=== PATIENT | female | born 1955 | race Caucasian/White ===

== ENCOUNTER 2017-05-01 14:53 | Inpatient (IN) | payer MEDICARE, BC ==
[~2017-05-01] VITALS: Ht 162.6 cm; Wt 68.6 kg
--- NOTE | ~2017-05-01 | CN ---
PATIENT NAME:MARCELO PALACIOS MEDICAL RECORD: [id number] : 51 LOCATION:D.MS [place] ADMIT DATE: 05/01/17 ACCOUNT: [id number] CONSULTING PHYSICIAN: CHARLIE MARCELO MD REFERRING PHYSICIAN: GEOFFREY CORTEZ MD DATE OF CONSULTATION: 05/02/2017 REQUESTING PHYSICIAN: Geoffrey Cortez MD. REASON FOR CONSULTATION: Acute exacerbation of COPD. HISTORY OF PRESENT ILLNESS: Ms. Palacios is a 61-year-old female who has a history of COPD and asthma and current everyday smoker. According to the patient, she is sick for the last few weeks, which is getting worse. She is coughing with white yellow colored sputum production. She is also having a nasal discharge. She is wheezing. She is coughing. She has shortness of breath with mild exertion. Her level of activities are fairly limited. REVIEW OF SYSTEMS: As in history of present illness. PAST MEDICAL HISTORY: 1. COPD. 2. Asthma. 3. Emphysema. 4. Hypothyroidism. 5. Depression. PAST SURGICAL HISTORY: 1. Appendectomy. 2. Tonsillectomy and adenoidectomy. 3. Hysterectomy. ALLERGIES: SHE IS ALLERGIC TO IODINE AND AVELOX. PRESENT MEDICATIONS: On [employer] was reviewed. PERSONAL AND SOCIAL HISTORY: The patient is still a current everyday smoker. She was smoking more than a pack a day, now she is down to half pack a day. She is a nondrinker. FAMILY HISTORY: Noncontributory. PHYSICAL EXAMINATION: GENERAL: Now, the patient is lying comfortably in bed. She is not in acute distress. VITAL SIGNS: The blood pressure is 111/69, pulse is 115, respirations 18, temperature 99 and SPO2 is 88% to 93% on 2 liters nasal cannula. HEENT: Conjunctivae pink, sclerae nonicteric. NECK: Supple. No JVD. CHEST: The chest excursion is minimal on both sides. There is wheeze on forceful expiration. HEART: Rhythm regular, normal sound, no murmur. ABDOMEN: Soft, bowel sounds present. No hepatosplenomegaly. RECTAL: Examination was deferred. EXTREMITIES: No cyanosis, no clubbing and no pedal edema. CONSULT REPORT [id number] MARCELO PALACIOS SKIN: The skin is warm, normal turgor. CENTRAL NERVOUS SYSTEM: The patient is awake and alert. There are no obvious cranial nerve abnormalities. The gait was not tested. IMAGING: Chest radiograph, there is hyperinflation. There are increased interstitial markings. LABORATORY DATA: CBC: The WBC is 6.3, hemoglobin 17.7, hematocrit 54.3 and the platelet count is 215. Chemistry: Sodium 124, potassium 3.3, BUN is 17 and creatinine 0.8. ABG: The pH was 7.35, pCO2 is 57.6, the pO2 was 56 and bicarbonate is 32.5. IMPRESSION: 1. Ppxuq-dj-agkldcr hypoxic respiratory failure. 2. Chronic compensated respiratory failure. 3. Acute exacerbation of chronic obstructive pulmonary disease. 4. Acute bronchitis. 5. 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 6. Tobacco dependence syndrome. 7. Chest pain. 8. Acute sinusitis. 9. Allergic rhinitis. 10. Hyponatremia. 11. Hypokalemia. RECOMMENDATIONS: 1. I will check proBNP, follow up labs and chest radiograph, methylprednisolone IV, add Brovana and budesonide nebulizer. Continue albuterol/ipratropium nebulizer. 2. Nicotine patch. 3. Singulair 10 mg a day. The patient is to undergo cardiac catheterization in the a.m. Dr. Cortez, thank you for involving me in the care of Ms. Palacios. TRANSINT:[id number] Voice Confirmation ID: [id number] DOCUMENT ID: [id number] CHARLIE MARCELO MD CC: GEOFFREY CORTEZ MD [id number] DICTATION DATE: 05/02/171740 REHABILITATION SERVICES AIDE: 05/02/172134 ADM IN [place] [address] [place] [address]
--- NOTE | ~2017-05-01 | EC ---
PATIENT:MARCELO PATTERSON DATE OF SERVICE: 05/01/17 SEX: F MEDICAL RECORD: [id number] DATE OF : 51 LOCATION:D.MS [place] AGE OF PATIENT: 61 ADMISSION DATE: 05/01/17 REFERRING PHYSICIAN: INTERPRETING PHYSICIAN: JAREN MACKAY MD ECHOCARDIOGRAM REPORT ECHO CHARGES 4 ECHO COMPLETE CLINICAL DIAGNOSIS: DYSPNEA, CHEST PAIN ECHOCARDIOGRAPHIC MEASUREMENTS (adult normal given) AC root (d.<3.7cm) 2.9 cm LV Septum d (<1.2 cm> 1.5 cm Valve Excursion 1.5 cm LV Septum (systole) 1.8 cm Left Atria (s.<4.0cm> 3.6 cm LVPW d(<1.2cm) 1.5 cm RV (d.<2.3cm) 2.9 cm LVPW (sytole) 1.8 cm LV diastole(<5.6CM) 5.8 cm MV E-F(>70mm/sec) cm LV systole 4.3 cm LVOT Diameter 1.7 cm MV exc.(>10mm) 1.6 cm Est.ejection fraction (50-75%) % Pericardial Effusion N DOPPLER: LVIT cm/sec A 67.0 cm/sec E 99.0 cm/sec LA cm/sec RVSP 28 mmHg LVOT cm/sec AOP1/2T m/s Asc. Ao 204 cm/sec RVOT 88 cm/sec RA cm/sec PA 153 cm/sec AV Gradient Peak 16.70mmHg AV Mean 9.38 mmHg AV Area 2.0 cm MV Gradient Peak 3.75 mmHg MV Mean 1.26 mmHg MV Area cm COMMENTS: Ornamental Bronze Worker: Lottie DUMONT Medical Assistant Dermatology: 4 Dr. Mackay TAPE# PACS DATE OF SERVICE: 05/02/2017 PROCEDURE: Transthoracic echocardiogram. FINDINGS: 1. The left ventricle shows mild concentric left ventricular hypertrophy. There was asynchronous wall motion seen which limits the ability to give an accurate ejection fraction, but overall it appears that the patient's ejection fraction is in the low normal range of 45% to 50%. There is no demonstrated wall motion abnormalities. ECHOCARDIOGRAM REPORT [id number] MARCELO PATTERSON 2. The right ventricle is mildly dilated. 3. Left atrium is normal size, normal function. 4. The right atrium has normal size, normal function. 5. The aortic valve is normal. 6. The mitral valve is normal. 7. The tricuspid valve has traced tricuspid regurgitation with normal right ventricular systolic pressures. 8. Pulmonic valve is grossly normal. 9. The pericardium had no evidence of effusion. IMPRESSION: Normal function to low normal function and the patient with widely varying R-R intervals and with some asynchrony of the wall motion secondary to underlying bundle branch block. TRANSINT:[id number] Voice Confirmation ID: [id number] DOCUMENT ID: [id number] JAREN MACKAY MD CC: [id number] DICTATION DATE: 05/02/17 1658 OPTOELECTRONIC TECHNICIAN: 05/02/172044 ADM IN [facility] [address] [id number]
--- NOTE | ~2017-05-01 | HEMODYNAMI ---
PATIENT:MARCELO PATTERSON MEDICAL RECORD: [id number] : 51 LOCATION:D.MS [place] ADMISSION DATE: 05/01/17 Generatedon:05/03/20178:37 Patient name: MARCELO PATTERSON Patient #: [id number] SSN: : 1955 Date of study: 05/03/2017 Page: Of Hemodynamic Procedure Report Patient Data Patient Demographics Procedure consent was obtained First Name: MARCELO Gender: Female Last Name: LEONARDO : 1955 [facility] Initial: S Age: 61 year(s) Patient #: [id number] Race: Unknown Additional ID: [id number] Contact details Address: [address] [place] [address] State: [place] City: [place] Zip code: [address] Past Medical History Allergies Allergen Reaction Date Comments Reported Iodine 05/03/2017 Other allergy 05/03/2017 Avelox, Benadryl, Advil Admission Admission Data Admission Date: 05/01/2017 Admission Time: 17:27 Room #: D.2230 Lab Results Lab Result Date: 05/03/2017 Lab Result Time: 0:00 Biochemistry Name Units Result Min Max Creatinine mg/dl 0.8 --(-*--)-- 0.6 1.3 CBC Name Units Result Min Max Hemoglobin g/dl 18 --(----)*- 13.5 17.5 Procedure Procedure Types Cath Procedure Diagnostic Procedure [facility] w/Coronaries Miscellaneous Procedures Moderate Sedation up to 30 minutes Procedure Description Procedure Date Procedure Date: 05/03/2017 Procedure Start Time: 8:12 Procedure End Time: 8:33 Procedure Staff Name Function Severo Santana RT Scrub Sal Massey MD Performing Physician Lucien Bruce RN Nurse Mayte Stephens RT Scrub Michelle Spence RT Monitor Procedure Data Cath Procedure Fluoroscopy Diagnostic fluoroscopy Total fluoroscopy Time: 3.9 time: 3.9 min min Diagnostic fluoroscopy Total fluoroscopy dose: 169 dose: 169 mGy mGy Contrast Material Contrast Material Type Amount (ml) Isovue 300 47 Entry Location Entry Primary Successful Side Size Upsize Upsize Entry Closure Succes sful Closure Location (Fr) 1 (Fr) 2 (Fr) Remarks Device Remarks Femoral Right 5 Fr Exoseal artery Estimated blood loss: 5 ml Diagnostic catheters Device Type Used For End Catheter Placement Cordis 5Fr JL 4.0 Left Coronary Catheter (MP) Angiography Diagnostic Infinity 5Fr Left Coronary JL 3.5 catheter Angiography Cordis 5Fr 3DRC Catheter Right Coronary (MP) Angiography Cordis 5Fr Pigtail LV Angiography Catheter (MP) Procedure Complications No complications Procedure Medications Medication Administration Route Dosage Oxygen NC 3 l/min 0.9% NaCl I.V. 100 ml/hr Heparin Flush Bag added to field 2 bags (1000units/500ml NS) Versed I.V. 1 mg Fentanyl I.V. 25 mcg Hemodynamics Rest HGB: 18 (g/dl) Heart Rate: 111 (bpm) Pressure Samples Time Site Value (mmHg) Purpose Heart Use Rate(bpm) 8:28 LV 105/9,17 EDP 115 Gradients Valve Time Site Site Mean SEP/DFP Peak To Heart Use 1 2 (mmHg) (sec/min) Peak Rate (mmHg) (bpm) Aortic 8:29 LV AO 112 Snapshots Pre Cath Intra NCS Post Cath Vital Signs Time Heart Resp SPO2 etCO2 [id number] NIBP (mmHg) Rhythm Pain Sedation Rate (ipm) (%) (mmHg) (mmHg) Status Level (bpm) 8:06:43 112 25 94 0 0 126/79(110) NSR 0 (11) 10(A) , No pain 8:10:51 115 26 92 0 0 123/84(96) NSR 0 (11) 10(A) , No pain 8:15:45 122 15 93 0 0 125/88(98) NSR 0 (11) 10(A) , No pain 8:19:55 111 21 93 0 0 117/76(92) NSR 0 (11) 10(A) , No pain 8:24:01 109 22 92 0 0 117/71(91) NSR 0 (11) 10(A) , No pain 8:28:07 112 15 91 0 0 108/69(93) NSR 0 (11) 10(A) , No pain 8:32:04 119 19 91 0 0 119/80(94) NSR 0 (11) 10(A) , No pain Medications Time Medication Route Dose Verified Delivered Reason Notes Effect iveness by by 8:03:01 Oxygen NC 3 Lucien Lucien Per l/min Teo Bruce physician RN RN 8:03:27 0.9% NaCl I.V. 100 Lucien Lucien Per ml/hr Teo Bruce physician RN RN 8:05:31 Heparin Flush added 2 Lucien Lucien used for Bag to bags Teo Bruce procedure (1000units/500ml field RN RN NS) 8:15:15 Versed I.V. 1 mg Lucien Lucien for Lorigan Lorigan sedation RN RN 8:16:36 Fentanyl I.V. 25 Lucien Lucien for mcg Lorigan Lorigan sedation RN director diabetes Log Time Note 7:45:28 Lucien Bruce RN sent for patient. Start room use. 7:45:29 Time tracking: Regular hours 7:45:32 Plan of Care:Hemodynamics will remain stable., Cardiac rhythm will remain stable., Comfort level will be maintained., Respiratory function will remain adequate., Patient/ family verbilizes understanding of procedure., Procedure tolerated without complication., Recovers from procedure without complications.. 7:50:46 Lab Result : Hemoglobin 18 g/dl 7:50:46 Lab Result : Creatinine 0.8 mg/dl 7:54:42 Patient received from Med/Surg to CCL 1 Alert and oriented. Tansferred to table in Supine position. 7:54:43 Warm blankets applied, and deb hugger turned on for patient comfort. 7:54:44 Correct patient and procedure confirmed by team. 7:54:45 Signed procedure consent form obtained from patient. 7:54:46 ECG and BP/O2 sat monitors applied to patient. 7:55:02 Full Disclosure recording started 8:01:12 Vital chart was started 8:03:01 Oxygen 3 l/min NC was administered by Lucien Bruce RN; Per physician; 8:03:27 0.9% NaCl 100 ml/hr I.V. was administered by Lucien Bruce RN; Per physician; 8:05:31 Heparin Flush Bag (1000units/500ml NS) 2 bags added to field was administered by Lucien Bruce RN; used for procedure; 8:05:58 Pre-op teaching completed and patient verbalized understanding. 8:05:58 Pre-procedure instructions explained to patient. 8:06:36 Rhythm: sinus tachycardia 8:07:41 H&P Date Dictated: 05/02/2017 Within 30 days and on chart.. 8:07:43 Family in patients room. 8:07:46 Patient NPO since Midnight. 8:07:53 Patient allergic to Iodine 8:08:12 Patient allergic to Other allergyAvelox, Benadryl, Advil 8:08:16 Is the patient allergic to Iodine/contrast media? Yes. 8:08:18 Was the patient premedicated? Yes 8:08:25 Is patient on blood thinner?Yes 8:08:27 ACC The patient was administered the following blood thiners within the last 24 hours: ACCPlavix 8:08:29 Patient diabetic? No. 8:09:00 Previous problem with sedation/anesthesia? No ? 8:09:02 Snore? No 8:09:03 Sleep apnea? No 8:09:04 Deviated septum? No 8:09:05 Sticks out tongue? Yes 8:09:05 Opens mouth fully? Yes 8:09:08 Airway obstruction? Yes COPD 8:09:11 Dentures? Yes In 8:09:14 Pre procedure: right dorsailis pedis pulse 1+ Palpable, but thready & weak; easily obliterated 8:09:16 Patient pain scale 0/10 ?. 8:09:24 IV patent on arrival in left forearm with 0.9% NaCl at KVO. 8:09:27 Lab results completed and on chart. 8:09:29 Right groin area was prepped with chlora-prep and draped in sterile fashion 8:09:31 Sharps counted by scrub and verified by R.N. 8:09:31 Alarms reviewed by R. N. 8:09:35 Use device set Femoral Dx 8:09:36 Bag Decanter opened to sterile field. 8:09:36 Acist Syringe opened to sterile field. 8:09:37 Medline Cath Pack opened to sterile field. 8:09:38 St Pj 260cm J .035 wire opened to sterile field. 8:09:39 Acist Hand Control opened to sterile field. 8:09:40 Diagnostic Infinity 5Fr Multipack catheter opened to sterile field. 8:09:40 Acist Manifold opened to sterile field. 8:09:41 Tegaderm 4 x 4 opened to sterile field. 8:09:52 Final Timeout: patient, procedure, and site verified with staff and physician. All members of the team are in agreement. 8:09:53 Right groin site verified by team. 8:09:56 Physical assessment completed. ASA score P 2 - A patient with mild systemic disease as per Sal Massey MD. 8:09:59 Sedation plan: IV Moderate Sedation Versed, Fentanyl 8:11:01 Zero performed for pressure channel P1 8:12:14 Procedure started. 8:12:51 Local anesthetic to right femoral artery with Lidocaine 2% by Sal Massey MD.INITIAL ACCESS ONLY 8:13:23 Baseline sample Acquired. 8:14:09 Merit Prelude Femoral Sheath (NO COST SUPPLY) opened to sterile field. 8:14:17 Cook 4Fr Micropuncture (E98613) opened to sterile field. 8:15:15 Versed 1 mg I.V. was administered by Lucien Bruce RN; for sedation; 8:15:16 A 5 Fr sheath was inserted into the Right Femoral artery 8:16:26 A Cordis 5Fr JL 4.0 Catheter (MP) was advanced over the wire and used for Left Coronary Angiography. 8:16:36 Fentanyl 25 mcg I.V. was administered by Lucien Bruce RN; for sedation; 8:20:03 Catheter removed. 8:20:19 A Diagnostic Infinity 5Fr JL 3.5 catheter was advanced over the wire and used for Left Coronary Angiography. 8:23:51 Catheter exchanged over wire. 8:25:11 A Cordis 5Fr 3DRC Catheter (MP) was advanced over the wire and used for Right Coronary Angiography. 8:25:55 Catheter exchanged over wire. 8:26:30 A Cordis 5Fr Pigtail Catheter (MP) was advanced over the wire and used for LV Angiography. 8:28:21 LV gram done using SOL 8:28:32 Injector settings: Ml/sec: 12, Volume: 8, 8:28:40 LV hemodynamics recorded. 8:29:14 Catheter removed. 8:29:23 Cordis 5Fr Exoseal opened to sterile field. 8:29:37 Sheath removed intact; hemostasis achieved with Exoseal to the Right Femoral artery. 8:29:40 Procedure ended.(Physican Out) 8:30:51 Fluoroscopy time 03.90 minutes. 8:30:54 Fluoroscopy dose: 169 mGy 8:30:54 Flurop Dose total: 169 8:30:58 Contrast amount:Isovue 300 47ml. 8:30:59 Sharps counted by scrub and verified by R.N. 8:31:03 Insertion/operative site no bleeding no hematoma. 8:31:05 Post-op/insertion site Right Femoral artery dressed using a 4 x 4 and Tegaderm. 8:31:08 Post right femoral artery:stable, clean and dry 8:31:10 Post Procedure Pulses reassessed and unchanged 8:31:15 Post-procedure physical assessment completed. ASA score P 2 - A patient with mild systemic disease as per Sal Massey MD. 8:31:17 Post procedure rhythm: unchanged. 8:31:20 Estimated blood loss: 5 ml 8:31:21 Patient needs reinforcement of post procedure teaching. 8:31:21 Post procedure instruction explained to patient.Patient verbalizes understanding. 8:31:31 Procedure type changed to Cath procedure, Diagnostic procedure, LHC, LHC w/Coronaries, Miscellaneous Procedures, Moderate Sedation up to 30 minutes 8:31:36 Procedure Complication : No complications 8:31:38 See physician's report for complete and final results. 8:32:07 Procedure and supply charges have been captured, reviewed, submitted and are correct. 8:33:16 Vital chart was stopped 8:33:20 Report given to PCU. 8:33:22 Patient transfered to PCU with Stretcher. 8:33:37 Full Disclosure recording stopped 8:33:37 Procedure ended. 8:33:41 End room use (Document Last) Device Usage Item Name Manufacture Quantity Catalog Hospital Part Current Minimal Lot# / Number Charge Number Stock Stock Serial# Code Acist Syringe Acist 1 56746 [id number] 438450 615769 20 [employer]sportgroup Systems Goodwall Bag Decanter Microtek 1 2001S 273587 57944 498671 5 Medical Inc. Medline Cath Cardinal 1 [id number] 901174 26993 670225 5 [address] Health [address] Pj 260[address] St Pj 1 159597 761526 433296 104779 30 J .035 wire Acist Hand Acist 1 07401 546752 063391 473201 5 Control Medical Systems Inc Acist Acist 1 90263 804113 242879 449015 5 Manifold Medical Systems Inc Diagnostic Cardinal 1 SQ9595 066481 18224 060157 30 Infinity 5Fr Health Multipack catheter Tegaderm 4 x 3M 1 1626W 300420 107932 072828 5 4 Merit Prelude Merit 1 824440 101484 5 Femoral Medical Sheath (NO COST SUPPLY) Cook 4Fr Cook Medical 1 [id number] 816702 971574 565043 5 Micropuncture (T74225) Cordis 5Fr JL Cardinal 1 979065 5 4.0 Catheter Health (MP) Diagnostic Cardinal 1 [id number] 148559 233439 032745 5 Infinity 5Fr Health JL 3.5 catheter Cordis 5Fr Cardinal 1 096847 5 3DRC Catheter Health (MP) Cordis 5Fr Cardinal 1 774459 5 Pigtail Health Catheter (MP) Cordis 5Fr Cardinal 1 EX500 920063 784363 510058 10 [employer] [facility] Subtextual Signature Audit [place] Stage Time Signature Unsigned Intra-Procedure 05/03/2017 Michelle 8:37:45 AM Counts RT(R) Signatures Monitor : Michelle Signature : Counts RT Date : Time : [id number] [place] [address]
[2017-05-01 16:17] LABS: BASOPHILS 0.2 % (0-2); EOSINOPHILS 1.8 % (0-7); HEMATOCRIT 53.1 % (36.0-48.0); HEMOGLOBIN 17.4 g/dL (12-16); LYMPHOCYTES 16.9 % (15-50); MCH 29.7 pg (26.0-34.0); MCHC 32.8 g/dL (31.0-37.0); MCV 90.8 fL (80.0-100.0); MEAN PLATELET VOLUME 9.8 fL (7.4-10.4); MONOCYTES 9.5 % (2-11); NEUTROPHILS 70.6 % (40-80); PLATELET COUNT 175 10x3/uL (130-400); RBC 5.85 10x6/uL (4.00-5.40); RDW 15.4 % (11.5-14.5); WBC 8.2 10x3/uL (4.8-10.8)
[2017-05-01 16:41] LABS: ALBUMIN 3.5 g/dL (3.4-5.0); ALKALINE PHOSPHATASE 71 U/L (46-116); ALT (SGPT) 14 U/L (10-68); BILIRUBIN - TOTAL 0.27 mg/dL (0.2-1.3); CALC OSMOLALITY 273 mosm/kg (275-300); CALCIUM 9.7 mg/dL (8.5-10.1); CARBON DIOXIDE 31.7 mmol/L (21.0-32.0); CHLORIDE - SERUM 98 mmol/L (98-107); CREATININE - SERUM 0.8 mg/dL (0.6-1.3); GLUCOSE 102 mg/dL (74-106); POTASSIUM - SERUM 3.6 mmol/L (3.5-5.1); PROTEIN - SERUM 7.7 g/dL (6.4-8.2); SODIUM 138 mmol/L (136-145); TROPONIN-I < 0.017 ng/mL (0.000-0.060); UREA NITROGEN 7 mg/dL (7-18); eGFR NON AFRICAN AMERICAN 77 mL/min (90-120)
[2017-05-01] MEDS ORDERED: SINGULAIR10 MG PO (18:37)
[2017-05-01] MEDS ORDERED: COMBIVENT RESPIM4 GM INH (18:37)
[2017-05-01] MEDS ORDERED: SPIRIVA18 MCG INH (18:37)
[2017-05-01] MEDS ORDERED: TRAZODONE HCL150 MG PO (18:37)
[2017-05-01] MEDS ORDERED: PREMARIN0.3 MG PO (18:37)
[2017-05-01] MEDS ORDERED: PROVENTIL HFA6.7 GM INH (18:38)
[2017-05-01] MEDS ORDERED: LEVOTHYROXINE125 MCG PO (18:38)
[2017-05-01] MEDS ORDERED: HYDROCODONE-APA1 TAB PO (18:39)
[2017-05-01] MEDS ORDERED: OXYCONTIN40 MG PO (18:39)
[2017-05-01] MEDS ORDERED: LOW DOSE ASPIRI81 M1 PO (18:40)
[2017-05-01 20:00] VITALS: BP 112/63
[2017-05-01 23:31] VITALS: BP 112/63; Ht 162.6 cm; Wt 68.6 kg
[2017-05-02] VITALS: BP 109/70
[2017-05-02 04:00] VITALS: BP 110/68
[2017-05-02 08:18] VITALS: BP 117/74
[2017-05-02 09:58] LABS: BASOPHILS 0.2 % (0-2); EOSINOPHILS 0 % (0-7); HEMATOCRIT 54.3 % (36.0-48.0); HEMOGLOBIN 17.7 g/dL (12-16); IMMATURE GRANULOCYTES 1.1 % (0-5); MCH 29.5 pg (26.0-34.0); MCHC 32.6 g/dL (31.0-37.0); MCV 90.7 fL (80.0-100.0); MEAN PLATELET VOLUME 10.5 fL (7.4-10.4); MONOCYTES 1.4 % (2-11); NEUTROPHILS 90.3 % (40-80); RBC 5.99 10x6/uL (4.00-5.40); RDW 15.5 % (11.5-14.5); WBC 6.3 10x3/uL (4.8-10.8)
[2017-05-02 09:59] LABS: PLATELET COUNT 215 10x3/uL (130-400)
[2017-05-02 10:15] LABS: ALBUMIN 3.5 g/dL (3.4-5.0); ALKALINE PHOSPHATASE 69 U/L (46-116); ALT (SGPT) 12 U/L (10-68); CALCIUM 10.1 mg/dL (8.5-10.1); CARBON DIOXIDE 31.2 mmol/L (21.0-32.0); CHLORIDE - SERUM 99 mmol/L (98-107); CREATININE - SERUM 0.7 mg/dL (0.6-1.3); PROTEIN - SERUM 7.5 g/dL (6.4-8.2); SODIUM 139 mmol/L (136-145); eGFR NON AFRICAN AMERICAN 90 mL/min (90-120)
[2017-05-02 10:17] LABS: CALC OSMOLALITY 284 mosm/kg (275-300); GLUCOSE 230 mg/dL (74-106); POTASSIUM - SERUM 4.5 mmol/L (3.5-5.1); UREA NITROGEN 12 mg/dL (7-18)
[2017-05-02] MEDS ORDERED: THEOPHYLLINE600 MG PO (10:19)
[2017-05-02 12:44] VITALS: BP 111/69
[2017-05-02 13:00] LABS: CALCIUM 9.9 mg/dL (8.5-10.1); CARBON DIOXIDE 30.7 mmol/L (21.0-32.0); CHLORIDE - SERUM 94 mmol/L (98-107); CREATININE - SERUM 0.8 mg/dL (0.6-1.3); SODIUM 124 mmol/L (136-145); eGFR NON AFRICAN AMERICAN 77 mL/min (90-120)
[2017-05-02 13:02] LABS: CALC OSMOLALITY 253 mosm/kg (275-300); GLUCOSE 137 mg/dL (74-106); POTASSIUM - SERUM 3.3 mmol/L (3.5-5.1); UREA NITROGEN 17 mg/dL (7-18)
[2017-05-02 16:28] VITALS: BP 122/72
[2017-05-02] MEDS ORDERED: PHENERGAN25 M1 PO (17:52)
[2017-05-02] MEDS ORDERED: ACETAMINOPHEN500 M1 PO (17:57)
[2017-05-02 20:00] VITALS: BP 119/64
[2017-05-03] VITALS: BP 106/68
[2017-05-03 04:00] VITALS: BP 114/70
[2017-05-03 05:47] LABS: BASOPHILS 0 % (0-2); EOSINOPHILS 0 % (0-7); HEMATOCRIT 54.9 % (36.0-48.0); IMMATURE GRANULOCYTES 0.7 % (0-5); LYMPHOCYTES 6.1 % (15-50); MCH 29.7 pg (26.0-34.0); MCHC 32.8 g/dL (31.0-37.0); MCV 90.4 fL (80.0-100.0); MEAN PLATELET VOLUME 10.3 fL (7.4-10.4); MONOCYTES 6.6 % (2-11); NEUTROPHILS 86.6 % (40-80); PLATELET COUNT 223 10x3/uL (130-400); RBC 6.07 10x6/uL (4.00-5.40); RDW 15.4 % (11.5-14.5)
[2017-05-03 06:39] LABS: ALBUMIN 3.5 g/dL (3.4-5.0); ALKALINE PHOSPHATASE 59 U/L (46-116); ALT (SGPT) 13 U/L (10-68); CALC OSMOLALITY 286 mosm/kg (275-300); CALCIUM 10.6 mg/dL (8.5-10.1); CARBON DIOXIDE 32.1 mmol/L (21.0-32.0); CHLORIDE - SERUM 101 mmol/L (98-107); CREATININE - SERUM 0.8 mg/dL (0.6-1.3); GLUCOSE 139 mg/dL (74-106); PROTEIN - SERUM 7.4 g/dL (6.4-8.2); SODIUM 142 mmol/L (136-145); UREA NITROGEN 17 mg/dL (7-18); eGFR NON AFRICAN AMERICAN 77 mL/min (90-120)
[2017-05-03 06:43] LABS: POTASSIUM - SERUM 4.2 mmol/L (3.5-5.1)
[2017-05-03 08:19] VITALS: BP 124/65
[2017-05-03 12:05] VITALS: BP 120/79
[2017-05-03 16:00] VITALS: BP 110/72
[2017-05-03 19:00] VITALS: BP 113/70
[2017-05-04 01:15] VITALS: BP 100/54
[2017-05-04 05:38] LABS: BASOPHILS 0 % (0-2); EOSINOPHILS 0 % (0-7); HEMATOCRIT 51.2 % (36.0-48.0); HEMOGLOBIN 16.4 g/dL (12-16); IMMATURE GRANULOCYTES 0.5 % (0-5); MCH 29.1 pg (26.0-34.0); MCV 90.9 fL (80.0-100.0); MEAN PLATELET VOLUME 9.9 fL (7.4-10.4); NEUTROPHILS 86.5 % (40-80); PLATELET COUNT 197 10x3/uL (130-400); RBC 5.63 10x6/uL (4.00-5.40); RDW 15.9 % (11.5-14.5); WBC 10.8 10x3/uL (4.8-10.8)
[2017-05-04 06:09] LABS: ALBUMIN 2.9 g/dL (3.4-5.0); ANION GAP 7.9 mmol/L (8-16); BILIRUBIN - TOTAL 0.17 mg/dL (0.2-1.3); CALCIUM 9.4 mg/dL (8.5-10.1); CARBON DIOXIDE 35.7 mmol/L (21.0-32.0); CREATININE - SERUM 0.9 mg/dL (0.6-1.3); POTASSIUM - SERUM 4.6 mmol/L (3.5-5.1); PROTEIN - SERUM 6.4 g/dL (6.4-8.2)
[2017-05-04 08:00] VITALS: BP 115/78
[2017-05-04] MEDS ORDERED: TUDORZA PRESS400 MCG INH (11:39)
[2017-05-04] MEDS ORDERED: IPRAT-ALBUT 0.5-3 ML UPD (11:39)
[2017-05-04] MEDS ORDERED: PREDNISONE10 MG PO (11:40)
[2017-05-04 12:00] VITALS: BP 117/71
== END 2017-05-04 14:38 | disposition home or self-care (01) | DRG 189 ==
LOC: D.ER 14:53 → D.MS 17:27 → D.M2 17:27
PROVIDERS: Internal Medicine Cardiovascular Disease; Physician Assistant; ADMIT Emergency Medicine
PROC: B2151ZZ Fluoroscopy of Left Heart using Low Osmolar Contrast (ICD-10-PCS; principal; 2017-05-01)
PROC: 4A023N7 Measurement of Cardiac Sampling and Pressure, Left Heart, Percutaneous Approach (ICD-10-PCS; 2017-05-01)
DX: J96.21 Acute and chronic respiratory failure with hypoxia (principal); J44.0 Chronic obstructive pulmonary disease with (acute) lower respiratory infection; J44.1 Chronic obstructive pulmonary disease with (acute) exacerbation; E87.1 Hypo-osmolality and hyponatremia; F17.203 Nicotine dependence unspecified, with withdrawal; R00.2 Palpitations; J20.9 Acute bronchitis, unspecified; J96.12 Chronic respiratory failure with hypercapnia; E87.6 Hypokalemia; E03.9 Hypothyroidism, unspecified; I25.10 Atherosclerotic heart disease of native coronary artery without angina pectoris

== ENCOUNTER 2017-06-13 11:28 | Inpatient (IN) | payer MEDICARE, BC ==
[2017-06-13] VITALS (12 sets, daily range): BP systolic 99–119; BP diastolic 61–90
[~2017-06-13 11:28] MED LIST: ACETAMINOPHEN500 M1 PO; COMBIVENT RESPIM4 GM INH; HYDROCODONE-APA1 TAB PO; IPRAT-ALBUT 0.5-3 ML UPD; LEVOTHYROXINE125 MCG PO; LOW DOSE ASPIRI81 M1 PO; OXYCONTIN40 MG PO; PHENERGAN25 M1 PO; PREDNISONE10 MG PO; PREMARIN0.3 MG PO; PROVENTIL HFA6.7 GM INH; SINGULAIR10 MG PO; SPIRIVA18 MCG INH; THEOPHYLLINE600 MG PO; TRAZODONE HCL150 MG PO; TUDORZA PRESS400 MCG INH
[2017-06-13 12:07] LABS: BASOPHILS 0.1 % (0-2); EOSINOPHILS 0.1 % (0-7); HEMATOCRIT 48.3 % (36.0-48.0); HEMOGLOBIN 15.1 g/dL (12-16); IMMATURE GRANULOCYTES 0.4 % (0-5); LYMPHOCYTES 5.7 % (15-50); MCHC 31.3 g/dL (31.0-37.0); MCV 92.9 fL (80.0-100.0); MEAN PLATELET VOLUME 10.2 fL (7.4-10.4); MONOCYTES 5.4 % (2-11); NEUTROPHILS 88.3 % (40-80); PLATELET COUNT 177 10x3/uL (130-400); RDW 15.8 % (11.5-14.5); WBC 13.8 10x3/uL (4.8-10.8)
[2017-06-13 12:35] LABS: ALBUMIN 2.8 g/dL (3.4-5.0); ALKALINE PHOSPHATASE 74 U/L (46-116); ALT (SGPT) 8 U/L (10-68); BILIRUBIN - TOTAL 0.24 mg/dL (0.2-1.3); CALC OSMOLALITY 272 mosm/kg (275-300); CALCIUM 9.5 mg/dL (8.5-10.1); CARBON DIOXIDE 31.5 mmol/L (21.0-32.0); CHLORIDE - SERUM 99 mmol/L (98-107); CKMB 2.4 U/L (0.0-3.6); CREATINE KINASE 169 UL (21-215); CREATININE - SERUM 0.8 mg/dL (0.6-1.3); GLUCOSE 96 mg/dL (74-106); POTASSIUM - SERUM 5.7 mmol/L (3.5-5.1); PROTEIN - SERUM 6.9 g/dL (6.4-8.2); SODIUM 135 mmol/L (136-145); TROPONIN-I < 0.017 ng/mL (0.000-0.060); UREA NITROGEN 20 mg/dL (7-18); eGFR NON AFRICAN AMERICAN 77 mL/min (90-120)
[2017-06-13 13:10] LABS: UDS - AMPHET NEGATIVE QUAL (NEGATIVE); UDS - BARB NEGATIVE QUAL (NEGATIVE); UDS - BENZO POSITIVE QUAL (NEGATIVE); UDS - COCAINE NEGATIVE QUAL (NEGATIVE); UDS - OPIATE POSITIVE QUAL (NEGATIVE); UDS - PCP NEGATIVE QUAL (NEGATIVE); UDS - THC NEGATIVE QUAL (NEGATIVE)
[2017-06-13 13:52] LABS: APPEARANCE HAZY (CLEAR); BACTERIA FEW /hpf (NONE SEEN); BILIRUBIN NEGATIVE (NEGATIVE); COLOR DK YELLOW (YELLOW); EPITHELIAL CELLS 0-5 /hpf (0-5); GLUCOSE NEGATIVE (NEGATIVE); GRANULAR CAST RARE /lpf (NONE SEEN); KETONE NEGATIVE (NEGATIVE); MUCUS >1+ /lpf (NONE SEEN); NITRITE NEGATIVE (NEGATIVE); PROTEIN TRACE mg/dL (NEGATIVE); SPECIFIC GRAVITY 1.025 (1.005-1.020); UROBILINOGEN NORMAL (NORMAL); WAXY CAST OCC /lpf (NONE SEEN); WHITE CELLS - URINE RARE /hpf (0-5)
--- NOTE | 2017-06-13 16:00 | NUR ---
RECEIVED PT FROM ER VIA STRETCHER, PT INTUBATED, NO FAMILY AT THE BEDSIDE, NO PERSONAL BELONGINGS WITH PT. VALDEZ CATHETER INTACT WITH URINE RETURN. RIGHT WRIST PIV S/L'ED, LEFT CHEST PIV S/L'ED. ASSESSMENT COMPLETED, SEE FLOW SEHET. WILL CONTINUE TO MONITOR PT.
[2017-06-13 16:05] LABS: CKMB 2.1 U/L (0.0-3.6); CREATINE KINASE 150 UL (21-215)
[2017-06-13 16:08] LABS: TROPONIN-I < 0.017 ng/mL (0.000-0.060)
--- NOTE | 2017-06-13 17:26 | NUR ---
1700 DIPRPIVAN TITRATED FOR SEDATION EFFECT PT TOLERATING WITH STABLE VS 1715 DR MARCELO IN TO SEE PT.. UPDATE IS GIVEN ..
--- NOTE | 2017-06-13 19:15 | NUR ---
REPORT RECIEVED. ASSESSMENT COMPLETE PER FLOW SHEET. VSS. REFER FOR FINDINGS. PT AWAKE FOLLOWS COMMANDS ORAL ENDOTRACH CARE ADM. OGT PLACED WITHOUT DIFFICULTY VERIFIED VIA AUSCULTATION TO LIS GREEN BILE NOTED. REPOSITIONED ON L SIDE. VSS WILL CONTINUE TO MONITOR
--- NOTE | 2017-06-13 21:00 | NUR ---
NO VISITORS AT THIS TIME. VSS. NO NEW CHANGES. REPOSITIONED IN L SIDE. ORAL NEDOTRACH CARE ADM. WILL CONTINUE TO MONITOR
[2017-06-13 22:02] LABS: CKMB 2.3 U/L (0.0-3.6); CREATINE KINASE 152 UL (21-215)
[2017-06-13 22:03] LABS: TROPONIN-I < 0.017 ng/mL (0.000-0.060)
--- NOTE | 2017-06-13 23:00 | NUR ---
REASSESSMENT COMPLETE PER FLOW SHEET. VSS. PT RESTING COMFORTABLY. NO NEW CHANGES. WILL CONTINUE MARY ONITOR
[2017-06-14] VITALS (21 sets, daily range): BP systolic 104–140; BP diastolic 66–97; BMI 22.3
--- NOTE | 2017-06-14 01:12 | NUR ---
VENT ALARMING ORAL ENDOTRACH CARE ADM. REPOSITIONED UP IN BED ON R SIDE PER REQUEST. DENIES FURTHER NEEDS. WILL CONTINUE TO MONITOR
--- NOTE | 2017-06-14 03:15 | NUR ---
REASSESSMENT COMPLET EPER FLOW SHEET. VSS. NO NEW CHANGES. WILL CONTINUE TO MONITOR
[2017-06-14 03:54] LABS: BASOPHILS 0.1 % (0-2); EOSINOPHILS 0 % (0-7); HEMATOCRIT 45.6 % (36.0-48.0); HEMOGLOBIN 14.4 g/dL (12-16); IMMATURE GRANULOCYTES 0.5 % (0-5); LYMPHOCYTES 5.1 % (15-50); MCH 28.9 pg (26.0-34.0); MCHC 31.6 g/dL (31.0-37.0); MCV 91.6 fL (80.0-100.0); MEAN PLATELET VOLUME 10.6 fL (7.4-10.4); MONOCYTES 3.5 % (2-11); NEUTROPHILS 90.8 % (40-80); PLATELET COUNT 196 10x3/uL (130-400); RBC 4.98 10x6/uL (4.00-5.40); RDW 15.9 % (11.5-14.5); WBC 10.9 10x3/uL (4.8-10.8)
--- NOTE | 2017-06-14 05:00 | NUR ---
REPOSITIONED UP IN BED. VSS NO NEW CHANGES. PT RESTING COMFORTABLY. PROPOFOL TURNED DOWN TO 10 PER ORDER. WILL CONTINUE TO MONITOR
[2017-06-14 06:56] LABS: ALBUMIN 2.3 g/dL (3.4-5.0); ALKALINE PHOSPHATASE 63 U/L (46-116); ALT (SGPT) 10 U/L (10-68); BILIRUBIN - TOTAL 0.39 mg/dL (0.2-1.3); CALC OSMOLALITY 284 mosm/kg (275-300); CALCIUM 8.9 mg/dL (8.5-10.1); CHLORIDE - SERUM 102 mmol/L (98-107); CREATINE KINASE 193 UL (21-215); CREATININE - SERUM 0.7 mg/dL (0.6-1.3); GLUCOSE 213 mg/dL (74-106); MAGNESIUM - SERUM 2.2 mg/dL (1.8-2.4); PHOSPHOROUS 2.6 mg/dL (2.5-4.9); POTASSIUM - SERUM 4.2 mmol/L (3.5-5.1); PROTEIN - SERUM 6.1 g/dL (6.4-8.2); SODIUM 138 mmol/L (136-145); TROPONIN-I < 0.017 ng/mL (0.000-0.060); UREA NITROGEN 21 mg/dL (7-18); eGFR NON AFRICAN AMERICAN 90 mL/min (90-120)
--- NOTE | 2017-06-14 07:00 | NUR ---
REPORT RECEIVED FROM OFF GOING NURSE. PT IN BED, ON VENTILATOR. 7.5 TUBE. 24 AT MID LIP. AC RATE OF 14, FIO2 35%, TITAL VOLUME 550 AND PEEP OF 5. PT ON SEDATION BUT ABLE TO FOLLOW COMMANDS AND EXPRESS NEEDS WITH PAPER AND PEN. NO NEEDS AT THIS TIME. OGT NOTED WITH LIS WITH GREEN BROWN BILE NOTED. PATENTCY CHECKED A&A. FC HAS HAZY YELLOW URINE NOTED. ORAL SUCTION AND ETT SUCTION WITH THICK CLEAR SPETUM NOTED. CALL LIGHT IN REACH. WILL CONT POC.
--- NOTE | 2017-06-14 10:13 | NUR ---
SEDATION TURNED OFF PER DR MARCELO. ATTEMPTING TO WHEEN OFF VENTILATOR. VENT CHANGED FROM AC TO SIMV. PT BREATHING NORMAL AND UNLABOERD. COUGHING OCCASIONALLY. VSS.
--- NOTE | 2017-06-14 11:19 | NUR ---
REMAINS ON VENTILATOR AT THIS TIME. ON BIPAP AND TOLERATING WELL. VSS. CALL LIGHT IN REACH. WILL CONT POC.
--- NOTE | 2017-06-14 11:54 | NUR ---
PT EXTUBATED PER ST. PT TOLERATING WELL. EXPLAINED TO TCDB. PT USING YANKER TO SUCTION SPETUM. BREATHING NORMAL AND UNLABORED. ON 4L VIA NC. 96% CALL LIGHT INR EACH. WILL CONT POC.
--- NOTE | 2017-06-14 12:31 | NUR ---
ICE CHIPS GIVEN TO PT. TOLERATING WELL. NO S/SX OF DYSPAGIA/ASPIRATION NOTED.
--- NOTE | 2017-06-14 12:51 | NUR ---
FULL LIQUID TRAY GIVEN. PT TOLERATING WELL. FAMILY AT BED SIDE
--- NOTE | 2017-06-14 14:01 | NUR ---
FAMILY LEFT BED SIDE. NEW LINENS AND GOWN TO PT AND BED. BED BATH GIVEN.
--- NOTE | 2017-06-14 15:00 | NUR ---
PT TOLERATING EXTUBATION WELL. ON 4L VIA NC. BREATHING NORMAL AND UNLABORED. DENIES PAIN AT THIS TIME. BILATERAL LOBES HAVE EXPITORY WHEEZING NOTED. IV TO RIGHT HAND DRESSING COMING UNDONE. DRESSING REIENFORCED BUT PT REQUESTED A NEW IV. X2 ATTEMPTS WITH NO SUCCESS. DR HEATH NOTIFIED WITH NEW ORDERS FOR MIDLINE NURSE CONSULT.
--- NOTE | 2017-06-14 15:25 | NUR ---
MIDLINE NURSE PLACED PIV TO LEFT WRIST. NO S/SX OF INFILTRATION. DRESSING C/D/I. CALL LIGHT IN REACH. WILL CONT POC.
--- NOTE | 2017-06-14 17:11 | NUR ---
FAMILY AT BEDSIDE. QUESTIONS ANSWERED. BREATHING NORMAL AND UNLABORED. EXPLAINED TO PT TO TCDB. PT DOING SO AND USING YANKER TO SUCTION THICK CLEAR SECTRETIONS. CALL LIGHT IN REACH. WILL CONT POC.
--- NOTE | 2017-06-14 19:00 | NUR ---
SHIFT ASSESSMENT COMPLETE. PT IS A&O X4 WITH NO SIGNS OF ACUTE DISTRESS NOTED. NC @ 4 L/MIN O2 SAT 97%, TEMP 97.7 AXILLARY, HR 74 NORMAL SINUS RHYTHM, BP 126/91, RR 17 AND SHALLOW. S1S2 AUDIBLE. LUNG SOUNDS DIMINISHED THROUGHOUT ALL LOBES. ABD IS FLAT AND NONTENDER TO TOUCH, BS ACTIVE X4. RADIAL AND PEDAL PULSES PALP. SCDS REMOVED AND SKIN ASSESSED, WNL. ID BAND, FALL RISK BAND, AND ALLERGY BAND ON L HAND. PIV R HAND INFUSING D5 1/2 NS @ 100 ML/HR. PIV IN L HAND SALINE LOC'D. SHE DENIES ANY PAIN AT THIS TIME AND SHE STATES THAT SHE WANTS TO REFUSE HER 2300 STEROID. EXPLAINED TO HER THE BENEFITS OF THIS MEDICAITON AND SHE STATES THAT SHE STILL WANTS TO REFUSE IT. BED IN LOWEST POSITOIN, BED ALARM ON, CALL LIGHT IN REACH. WILL CONT TO MONITOR.
--- NOTE | 2017-06-14 21:00 | NUR ---
PT IS AWAKE WATCHING TV WITH NO SIGNS OF ACUTE DISTRESS NOTED. VALDEZ CARE PROVIDED. CURTAIN PULLED AND LIGHTS OUT PER REQUEST. NO FURTHER REQUESTS. WILL CONT WITH POC.
--- NOTE | 2017-06-15 00:34 | NUR ---
PT STATED TO THE RN THAT SHE WAS SOB AND REQUESTED HER PRN TX. PT IS ON 5L NC AND O2 SATS ARE 98% AND PT IS CLEAR AND DIMINISHED. GAVE TX PER PATIENT'S REQUEST.
--- NOTE | 2017-06-15 03:40 | NUR ---
VALDEZ CARE COMPLETED USING VALDEZ CARE WIPES. VALDEZ CATHETER STAT-LOCK BROKE. CHANGED THE STAT-LOCK.
[2017-06-15 04:00] VITALS: BP 116/68
--- NOTE | 2017-06-15 05:10 | NUR ---
PT STATED TO RN THAT SHE WAS SOB, GAVE PT PRN TREATMENT. HER O2 SATS ARE 98-99% ON 4L NC.
[2017-06-15 06:22] LABS: BASOPHILS 0 % (0-2); EOSINOPHILS 0 % (0-7); HEMATOCRIT 42.4 % (36.0-48.0); HEMOGLOBIN 13.6 g/dL (12-16); IMMATURE GRANULOCYTES 0.5 % (0-5); MCH 28.5 pg (26.0-34.0); MCHC 32.1 g/dL (31.0-37.0); MONOCYTES 5.4 % (2-11); NEUTROPHILS 90.1 % (40-80); PLATELET COUNT 206 10x3/uL (130-400); RBC 4.77 10x6/uL (4.00-5.40); WBC 12.8 10x3/uL (4.8-10.8)
[2017-06-15 06:28] LABS: MCV 88.9 fL (80.0-100.0)
[2017-06-15 06:46] LABS: ALBUMIN 2.4 g/dL (3.4-5.0); ALKALINE PHOSPHATASE 56 U/L (46-116); ALT (SGPT) 10 U/L (10-68); BILIRUBIN - TOTAL 0.42 mg/dL (0.2-1.3); CALCIUM 9.2 mg/dL (8.5-10.1); CARBON DIOXIDE 28.6 mmol/L (21.0-32.0); CHLORIDE - SERUM 107 mmol/L (98-107); GLUCOSE 175 mg/dL (74-106); POTASSIUM - SERUM 3.6 mmol/L (3.5-5.1); PROTEIN - SERUM 5.8 g/dL (6.4-8.2); SODIUM 143 mmol/L (136-145)
[2017-06-15 07:07] LABS: CALC OSMOLALITY 289 mosm/kg (275-300); CREATININE - SERUM 0.5 mg/dL (0.6-1.3); UREA NITROGEN 15 mg/dL (7-18); eGFR NON AFRICAN AMERICAN > 90 mL/min (90-120)
--- NOTE | 2017-06-15 07:55 | NUR ---
ASSESSMENT COMPLETE. IV TO L WRIST PATENT. D5 1/2 INFUSING AT 100 CC/HR VIA PUMP. O2 4L NC IN USE. VALDEZ PATENT DRAINING YELLOW URINE. SOB ON EXERTION.
--- NOTE | 2017-06-15 08:09 | NUR ---
Patient Name: MARCELO PATTERSON Admission Status: ER Accout number: [id number] Admission Date: 06-13-2017 : 1955 Admission Diagnosis: Attending: EMPERATRIZ HEATH Current LOS: 2 Anticipated DC Date: 06-19-2017 Planned Disposition: Home Primary Insurance: MEDICARE A & B Discharge Planning Comments: CM MET WITH PATIENT REGARDING D/C NEEDS AND PLANS. PATIENT STATED SHE LIVES WITH HER AND THERE ARE 2 STEPS W/RAILS TO ENTER HOME AND NO STAIRS INSIDE. PATIENT STATED HER SPOUSE WILL DRIVE HER HOME AT DISCHARGE. PATIENT IS INDEPENDENT WITH HER CARE AND HAS OXYGEN (3.5L), NEBULIZER, PORT 02, CANE AND BUILT IN SHOWER BENCH AT HOME. PATIENTS PCP IS DR. ONOFRE IN [place] AND USES [facility] IN [place]. PATIENT STATED SHE WILL THINK ABOUT HOME HEALTH BUT DOES NOT THINK SHE NEEDS IT. CM WILL CONTINUE TO FOLLOW PATIENT WITH D/C NEEDS AND PLANS. PCP DR. ONOFRE [facility]- [phone] FELIPE (SPOUSE) [phone] Yacht Hand: Arleneswetha Ayala Is the patient Alert and Oriented? Yes 0 * How many steps to enter\exit or inside your home? 2 W/RAILS 0 * PCP DR. ONOFRE IN [place] 0 * Pharmacy [facility] IN [place] 0 * Preadmission Environment Home with Family 0 * ADLs Independent 0 * Equipment Cane Nebulizer Oxygen 0 * Other Equipment PORTABLE O2, BUILT IN SHOWER BENCH 0 * List name and contact numbers for known caregivers / representatives who currently or will assist patient after discharge: FELIPE (SPOUSE) [phone] 0 * Community resources currently utilized None 0 * Additional services required to return to the preadmission environment? Yes 0 * Can the patient safely return to the preadmission environment? Yes 0 * Has this patient been hospitalized within the prior 30 days at any hospital? No 0 Grand Total: 0
[2017-06-15 08:31] VITALS: BP 119/64
--- NOTE | 2017-06-15 11:24 | NUR ---
IV TO L WRIST WITH SWELLING AND TENDERNESS NOTED. IV REMOVED. CATHETER TIP INTACT. IV RESITED TO R WRIST WITH 22 GUAGE X 2 ATTEMPTS.
--- NOTE | 2017-06-15 12:55 | NUR ---
COMPLAINING OF PAIN TO RIBS AND BACK. NORCO GIVEN . VISITING WITH FAMILY.
[2017-06-15 13:59] VITALS: BP 148/82
--- NOTE | 2017-06-15 14:00 | NUR ---
RESTING QUIETLY AT THIS TIME. STATES NORCO HELPED WITH RIB AND BACK PAIN.
[2017-06-15 16:01] VITALS: BP 116/68
--- NOTE | 2017-06-15 17:38 | NUR ---
NO CHANGES NOTED AT THIS TIME.
[2017-06-15 20:00] VITALS: BP 120/72
--- NOTE | 2017-06-15 20:00 | NUR ---
ASSESSMENT PER FLOWSHEET. IV PATENT RT WRIST OF D51/2NS AT 100CC'S/HR SITE CLEAR. VALDEZ TO BS DRAINAGE WITH YELLOW URINE. O2 ON AT 4L/M PER NC. PT IN DROPLET ISOLATION FOR POSSIBLE MRSA IN SPUTUM. SITTING ON SIDE OF BED SR UP X2 CALL LIGHT WITHIN REACH.
--- NOTE | 2017-06-15 21:00 | NUR ---
MEDS GIVEN PER MAR.
--- NOTE | 2017-06-16 | NUR ---
EYES CLOSED RESPIRATIONS WITH EASE AND UNLABORED.
--- NOTE | 2017-06-16 03:10 | NUR ---
PT AWAKE REQUESTING A BREATHING TREATMENT. NOTIFIED [place] FOR A BREATHING TX. TX GIVEN BY TECH.
--- NOTE | 2017-06-16 03:30 | NUR ---
C/O BACK/SHOULDER AND NECK PAIN. NORCO TAB ONE PO GIVEN FOR PAIN CONTROL.
[2017-06-16 04:00] VITALS: BP 130/64
[2017-06-16 05:50] LABS: BASOPHILS 0 % (0-2); EOSINOPHILS 0 % (0-7); HEMATOCRIT 42.6 % (36.0-48.0); HEMOGLOBIN 13.7 g/dL (12-16); IMMATURE GRANULOCYTES 1.3 % (0-5); LYMPHOCYTES 9.2 % (15-50); MCHC 32.2 g/dL (31.0-37.0); MCV 90.1 fL (80.0-100.0); MEAN PLATELET VOLUME 10.7 fL (7.4-10.4); MONOCYTES 8.7 % (2-11); NEUTROPHILS 80.8 % (40-80); PLATELET COUNT 218 10x3/uL (130-400); RBC 4.73 10x6/uL (4.00-5.40); RDW 15.8 % (11.5-14.5); WBC 9.9 10x3/uL (4.8-10.8)
--- NOTE | 2017-06-16 06:15 | NUR ---
MEDS GIVEN PER MAR. NO CHANGES IN ASSESSMENT.
[2017-06-16 06:19] LABS: ALBUMIN 2.2 g/dL (3.4-5.0); ALKALINE PHOSPHATASE 45 U/L (46-116); ALT (SGPT) 10 U/L (10-68); BILIRUBIN - TOTAL 0.41 mg/dL (0.2-1.3); CALC OSMOLALITY 284 mosm/kg (275-300); CALCIUM 9.1 mg/dL (8.5-10.1); CARBON DIOXIDE 33.6 mmol/L (21.0-32.0); CHLORIDE - SERUM 107 mmol/L (98-107); CREATININE - SERUM 0.5 mg/dL (0.6-1.3); GLUCOSE 162 mg/dL (74-106); POTASSIUM - SERUM 3.6 mmol/L (3.5-5.1); PROTEIN - SERUM 5.5 g/dL (6.4-8.2); SODIUM 141 mmol/L (136-145); UREA NITROGEN 12 mg/dL (7-18); eGFR NON AFRICAN AMERICAN > 90 mL/min (90-120)
--- NOTE | 2017-06-16 07:55 | NUR ---
A&O, DENIES NEEDS, BED LOWEST POSITION, NO DISTRESS NOTED, CALL LIGHT IN REACH, WILL CONTINEU TO MONITOR
[2017-06-16 09:12] VITALS: BP 97/62
[2017-06-16 12:30] VITALS: BP 113/69
--- NOTE | 2017-06-16 13:14 | NUR ---
NUTRITION F/U CAHRT REVIEWED. PT REMAINS IN ISOLATION. REG DIET WITH GOOD PO INTAKE RECENT MEALS. WILL CONTINUE TO PROVIDE DIET, MONITOR PO INTAKE. RD FOLLOWING
[2017-06-16 16:42] VITALS: BP 104/57
--- NOTE | 2017-06-16 17:54 | NUR ---
PT HERE FOR PNUEMONIA FOR THIS VISIT RESP EVEN AND NONLABORED IV TO RIGHT WRIST PATENT AND INTACT SRX2 BED AT LOWEST SETTING CALL LIGHT WITHIN REACH WILL CONTINUE TO MONITOR
[2017-06-16 19:01] VITALS: BP 111/73
[2017-06-16 23:16] VITALS: BP 111/70
--- NOTE | 2017-06-16 23:24 | NUR ---
PATIENT WAS SLEEPING WELL, DURING SECOND VITAL SIGNS CHECK SHE REQUESTED PRN NORCO FOR HIB BACK AND SHOULDER PAIN. PATIENT IS AMBULATORY WITH NO PROBLEMS. SHE DID WANT TO HAVE HER VALDEZ REMOVED AND WAS INFORMED THAT THE DOCTOR HAS TO PUT IN THE ORDER. PATIENT IS ON 4LPM O2 VIA NC. NO NEEDS NOTED AT THIS TIME THAT'S WEREN'T ADDRESSED.
--- NOTE | 2017-06-17 02:26 | NUR ---
RN NOTE: PT RESTING QUIETLY ON RIGHT SIDE WITH EYES CLOSED AND UNLABORED BREATHING. IV IN RIGHT WRIST PATENT WITH D5 1/2 NS INFUSING AT 1O0 ML / HR. O2 IN USE VIA NC AT 4L. WILL CONTINUE TO MONITOR FOR NEEDS. CALL LIGHT WITHIN REACH.
[2017-06-17 04:00] VITALS: BP 111/68
[2017-06-17 07:06] LABS: BASOPHILS 0.1 % (0-2); EOSINOPHILS 0 % (0-7); HEMATOCRIT 45.4 % (36.0-48.0); HEMOGLOBIN 14.2 g/dL (12-16); LYMPHOCYTES 11.9 % (15-50); MCH 28.6 pg (26.0-34.0); MCHC 31.3 g/dL (31.0-37.0); MCV 91.3 fL (80.0-100.0); MEAN PLATELET VOLUME 10.2 fL (7.4-10.4); MONOCYTES 11.1 % (2-11); NEUTROPHILS 74.9 % (40-80); PLATELET COUNT 205 10x3/uL (130-400); RBC 4.97 10x6/uL (4.00-5.40); RDW 16.2 % (11.5-14.5); WBC 10.1 10x3/uL (4.8-10.8)
--- NOTE | 2017-06-17 07:15 | NUR ---
REPORT RECEIVED FROM JOB HONER NURSE. CALL LIGHT IN REACH.
[2017-06-17 07:21] LABS: ALBUMIN 2.4 g/dL (3.4-5.0); ALKALINE PHOSPHATASE 46 U/L (46-116); ALT (SGPT) 14 U/L (10-68); BILIRUBIN - TOTAL 0.32 mg/dL (0.2-1.3); CALC OSMOLALITY 295 mosm/kg (275-300); CALCIUM 9.2 mg/dL (8.5-10.1); CARBON DIOXIDE 34.3 mmol/L (21.0-32.0); CHLORIDE - SERUM 109 mmol/L (98-107); CREATININE - SERUM 0.5 mg/dL (0.6-1.3); GLUCOSE 184 mg/dL (74-106); POTASSIUM - SERUM 4.4 mmol/L (3.5-5.1); PROTEIN - SERUM 5.2 g/dL (6.4-8.2); SODIUM 146 mmol/L (136-145); UREA NITROGEN 12 mg/dL (7-18); eGFR NON AFRICAN AMERICAN > 90 mL/min (90-120)
[2017-06-17 08:36] VITALS: BP 110/60
--- NOTE | 2017-06-17 09:08 | NUR ---
ASSESSMENT COMPLETED. AM MEDS ADMINISTERED. IV TUBING CHANGED PER HOSPITAL POLICY. OFFERED SCDs BUT REFUSED. CALL LIGHT IN REACH. WILL CONTINUE WITH PLAN OF CARE.
--- NOTE | 2017-06-17 11:20 | NUR ---
REQUESTING PAIN PILL BUT TOO SOON AT THIS TIME. INFORMED PATIENT OF THIS AND SHE VERBALIZED UNDERSTANDING.
--- NOTE | 2017-06-17 12:08 | NUR ---
DONTA PO. VISITOR AT BEDSIDE. CALL LIGHT IN REACH.
[2017-06-17 13:43] VITALS: BP 115/66
--- NOTE | 2017-06-17 14:40 | NUR ---
AMBULATED IN HALLWAY WITH PHYSICAL THERAPY. TOLERATED WELL.
--- NOTE | 2017-06-17 15:28 | NUR ---
AFTERNOON MEDS ADMINISTERED. VALDEZ CATH DC'D WITH TIP INTACT.
[2017-06-17 17:19] VITALS: BP 129/82
--- NOTE | 2017-06-17 17:30 | NUR ---
HAS VOIDED TWICE SINCE REMOVAL OF CATHETER.
--- NOTE | 2017-06-17 18:14 | NUR ---
SOLU-MEDROL SIVP AND NORCO PO PER C/O PAIN OF 8. NO OTHER CHANGES IN INITIAL ASSESSMENT. STILL REFUSES SCDs. CALL LIGHT IN REACH. WILL CONTINUE WITH PLAN OF CARE.
--- NOTE | 2017-06-17 18:41 | NUR ---
PATIENT SITTING UP IN BED RECIEVING BREATHING TREATMENT. IV INTACT. NO COMPLAINTS. ICE GIVEN TO PATIENT REQUESTED. CALL LIGHT WITHIN REACH.
[2017-06-17 20:40] VITALS: BP 110/65
--- NOTE | 2017-06-18 01:13 | NUR ---
RN NOTE: PT RESTING QUIETLY IN SUPINE POSITION WITH EASY RESPIRATIONS. IV IN RIGHT FA PATENT WITH D5 1/2 NC INFUSING AT 100 ML / HR. O2 IN USE AT 4L VIA NC. WILL CONTINUE TO MONITOR FOR NEEDS. CALL LIGHT WITHIN REACH.
[2017-06-18 04:08] VITALS: BP 96/46
[2017-06-18 04:54] LABS: BASOPHILS 0.2 % (0-2); EOSINOPHILS 0 % (0-7); HEMATOCRIT 47.3 % (36.0-48.0); HEMOGLOBIN 14.7 g/dL (12-16); IMMATURE GRANULOCYTES 5.1 % (0-5); LYMPHOCYTES 11.9 % (15-50); MCH 28.4 pg (26.0-34.0); MCHC 31.1 g/dL (31.0-37.0); MCV 91.3 fL (80.0-100.0); MEAN PLATELET VOLUME 10.4 fL (7.4-10.4); MONOCYTES 6.9 % (2-11); NEUTROPHILS 75.9 % (40-80); PLATELET COUNT 229 10x3/uL (130-400); RBC 5.18 10x6/uL (4.00-5.40); RDW 15.9 % (11.5-14.5); WBC 10.6 10x3/uL (4.8-10.8)
[2017-06-18 05:35] LABS: ALBUMIN 2.4 g/dL (3.4-5.0); ALKALINE PHOSPHATASE 39 U/L (46-116); ALT (SGPT) 19 U/L (10-68); CALC OSMOLALITY 280 mosm/kg (275-300); CALCIUM 9.2 mg/dL (8.5-10.1); CARBON DIOXIDE 36.7 mmol/L (21.0-32.0); CHLORIDE - SERUM 105 mmol/L (98-107); CREATININE - SERUM 0.5 mg/dL (0.6-1.3); GLUCOSE 153 mg/dL (74-106); POTASSIUM - SERUM 4.4 mmol/L (3.5-5.1); SODIUM 140 mmol/L (136-145); UREA NITROGEN 11 mg/dL (7-18); eGFR NON AFRICAN AMERICAN > 90 mL/min (90-120)
--- NOTE | 2017-06-18 07:02 | NUR ---
REPORT RECIEVED FROM BONE GLUE MAKER NURSE. CALL LIGHT IN REACH.
--- NOTE | 2017-06-18 08:24 | NUR ---
ASSESSMENT COMPLETED. NORCO PO WITH AM MEDS ADMINISTERED. REFUSES SCDs. CALL LIGHT IN REACH. WILL CONTINUE WITH PLAN OF CARE.
[2017-06-18 08:25] VITALS: BP 116/72
--- NOTE | 2017-06-18 10:50 | NUR ---
IN BED WITH EYES CLOSED. RESP EVEN AND UNLABORED. CALL LIGHT IN REACH.
[2017-06-18 12:25] VITALS: BP 108/69
--- NOTE | 2017-06-18 12:25 | NUR ---
ASHER PO. CALL LIGHT IN REACH.
--- NOTE | 2017-06-18 12:30 | NUR ---
SITTING UP ON SIDE OF BED. DENIES ANY NEEDS AT PRESENT.
--- NOTE | 2017-06-18 14:42 | NUR ---
CARLOS DANIELSON IVPB. CALL LIGHT IN REACH.
[2017-06-18 16:36] VITALS: BP 112/63
--- NOTE | 2017-06-18 16:59 | NUR ---
IV LYN. STATES PAIN HAS DECREASED. CALL LIGHT IN REACH.
[2017-06-18 17:07] LABS: AEROBE ID Final report (())
--- NOTE | 2017-06-18 18:23 | NUR ---
NO CHANGES IN INITIAL ASSESSMENT. CALL LIGHT IN REACH. STILL REFUSES SCDs. WILL CONTINUE WITH PLAN OF CARE.
[2017-06-18 20:00] VITALS: BP 119/68
[2017-06-19 04:00] VITALS: BP 111/50
--- NOTE | 2017-06-19 05:20 | NUR ---
RN NOTE: PT RESTING QUIETLY IN SUPINE POSITION WITH EASY RESPIRATIONS. O2 IN USE AT 4L VIA NC. IV IN RIGHT FA PATENT WITH D5 1/2 NS INFUISNG AT 50 ML/ HR. SIDE RAILS UP X2 FOR SAFETY. WILL CONTINUE TO MONITOR FOR NEEDS.
--- NOTE | 2017-06-19 07:28 | NUR ---
AWAKE AND ALERT. OXYGEN ON 4L VIA NC WITH RESPIRATIONS EVEN AND NON LABORED. CALL LIGHT IN REACH, WILL CONTINUE WITH PLAN OF CARE.
[2017-06-19 08:31] VITALS: BP 113/66
--- NOTE | 2017-06-19 08:42 | NUR ---
SCHEDULED MEDICATIONS ADMINISTERED AT THIS TIME. IV TO RIGHT FOREARM PATENT WITH NO S/S OF INFILTRATION PRESENT. OXYGEN ON 4L VIA NC. DENIES NEEDS AT THIS TIME. CALL LIGHT IN REACH, WILL CONTINUE WITH PLAN OF CARE.
[2017-06-19 09:59] LABS: BASOPHILS 0.1 % (0-2); EOSINOPHILS 0.3 % (0-7); HEMATOCRIT 48.6 % (36.0-48.0); HEMOGLOBIN 15.1 g/dL (12-16); IMMATURE GRANULOCYTES 4.5 % (0-5); MCH 28.4 pg (26.0-34.0); MCHC 31.1 g/dL (31.0-37.0); MCV 91.4 fL (80.0-100.0); MEAN PLATELET VOLUME 9.7 fL (7.4-10.4); MONOCYTES 9.7 % (2-11); NEUTROPHILS 63.4 % (40-80); PLATELET COUNT 216 10x3/uL (130-400); RBC 5.32 10x6/uL (4.00-5.40); WBC 11.1 10x3/uL (4.8-10.8)
[2017-06-19 10:18] LABS: ALBUMIN 2.5 g/dL (3.4-5.0); ALKALINE PHOSPHATASE 40 U/L (46-116); ALT (SGPT) 19 U/L (10-68); CALCIUM 9.3 mg/dL (8.5-10.1); CHLORIDE - SERUM 104 mmol/L (98-107); GLUCOSE 137 mg/dL (74-106); PROTEIN - SERUM 5.3 g/dL (6.4-8.2); SODIUM 143 mmol/L (136-145)
[2017-06-19 10:27] LABS: CALC OSMOLALITY 287 mosm/kg (275-300); CARBON DIOXIDE 42.2 mmol/L (21.0-32.0); CREATININE - SERUM 0.7 mg/dL (0.6-1.3); POTASSIUM - SERUM 3.7 mmol/L (3.5-5.1); UREA NITROGEN 14 mg/dL (7-18); eGFR NON AFRICAN AMERICAN 90 mL/min (90-120)
[2017-06-19 12:04] VITALS: BP 98/58
--- NOTE | 2017-06-19 13:30 | NUR ---
PRN NORCO ADMINISTERED AT THIS TIME FOR PAIN 03/06.
[2017-06-19 16:18] VITALS: BP 97/61
--- NOTE | 2017-06-19 20:00 | NUR ---
ASSESSMENT PER FLOWSHEET. IV PATENT RT FOREARM OF D51/2NS AT 50CC'S/HR SITE CLEAR.O2 ON 4L/M PER NC NO DISTRESS.SR UP X2 CALL LIGHT WITHIN REACH.
--- NOTE | 2017-06-19 21:02 | NUR ---
C/O PAIN BACK AREA. NORCO TAB OE PO GIVEN FOR PAIN CONTROL.
--- NOTE | 2017-06-19 22:00 | NUR ---
RESTING QUIETLY SR UP X2 CALL LIGHT WITHIN REACH.
[2017-06-19 22:08] VITALS: BP 105/68
[2017-06-20 00:39] VITALS: BP 91/47
--- NOTE | 2017-06-20 03:13 | NUR ---
C/O BACK PAIN RATES PAIN LEVEL #7 NORCO TAB ONE PO GIVEN FOR PAIN CONTROL. REQUESTING UPDRAFT TX NOTIFIED RT FOR A TX.
[2017-06-20 04:00] VITALS: BP 103/56
--- NOTE | 2017-06-20 04:59 | NUR ---
IV FLUIDS SALINE LOCKED PER MD ORDERS.
[2017-06-20 06:01] LABS: BASOPHILS 0.1 % (0-2); EOSINOPHILS 0.2 % (0-7); HEMOGLOBIN 14.9 g/dL (12-16); IMMATURE GRANULOCYTES 5.2 % (0-5); LYMPHOCYTES 16.9 % (15-50); MCH 28.5 pg (26.0-34.0); MCHC 31.7 g/dL (31.0-37.0); MCV 89.9 fL (80.0-100.0); MEAN PLATELET VOLUME 10.2 fL (7.4-10.4); MONOCYTES 6.5 % (2-11); NEUTROPHILS 71.1 % (40-80); PLATELET COUNT 184 10x3/uL (130-400); RBC 5.23 10x6/uL (4.00-5.40); WBC 9.6 10x3/uL (4.8-10.8)
--- NOTE | 2017-06-20 06:29 | NUR ---
MEDS GIVEN PER MAR. NO CHANGES IN ASSESSMENT.
[2017-06-20 06:34] LABS: ALBUMIN 2.2 g/dL (3.4-5.0); ALKALINE PHOSPHATASE 28 U/L (46-116); ALT (SGPT) 16 U/L (10-68); CALC OSMOLALITY 281 mosm/kg (275-300); CALCIUM 9.1 mg/dL (8.5-10.1); CHLORIDE - SERUM 100 mmol/L (98-107); GLUCOSE 150 mg/dL (74-106); PROTEIN - SERUM 4.7 g/dL (6.4-8.2); SODIUM 140 mmol/L (136-145); UREA NITROGEN 13 mg/dL (7-18)
[2017-06-20 06:36] LABS: CREATININE - SERUM 0.5 mg/dL (0.6-1.3); POTASSIUM - SERUM 4.3 mmol/L (3.5-5.1); eGFR NON AFRICAN AMERICAN > 90 mL/min (90-120)
[2017-06-20 06:49] LABS: CARBON DIOXIDE 40.5 mmol/L (21.0-32.0)
[2017-06-20 08:19] VITALS: BP 115/79
--- NOTE | 2017-06-20 08:28 | NUR ---
SCHEDULED MEDICATIONS ADMINISTERED AT THIS TIME. PT HOPEFUL FOR DISCHARGE HOME. CALL LIGHT IN REACH, WILL CONTINUE WITH PLAN OF ARE.
--- NOTE | 2017-06-20 09:41 | NUR ---
PRN NORCO ADMINISTERED FOR PAIN 7/10 GENERALIZED AT THIS TIME.
[2017-06-20 12:16] VITALS: BP 113/68
--- NOTE | 2017-06-20 12:27 | NUR ---
CM REASSESSMENT NOTE: CM MET WITH PATIENT REGARDING DISCHARGE TODAY. SPOUSE IS DRIVING HER HOME AND PATIENT HAS HER PORTABLE O2 TO WEAR HOME. PATIENT DENIED NEEDS FOR HOME HEALTH AND STATED HOUSE CALLS WILL BE FOLLOWING UP WITH HER.
[2017-06-20] MEDS ORDERED: IPRAT-ALBUT 0.5-3 ML INH (12:46)
[2017-06-20] MEDS ORDERED: TESSALON PERLE100 MG PO (12:46)
[2017-06-20] MEDS ORDERED: Levaquin PO (12:46)
[2017-06-20] MEDS ORDERED: VIBRAMYCIN 100100 MG PO (12:46)
[2017-06-20] MEDS ORDERED: FLORAJEN3 CAPS460 MG PO (12:47)
[2017-06-20] MEDS ORDERED: PREDNISONE10 MG PO (12:47)
[2017-06-20] MEDS ORDERED: MUCINEX DM ER1 EAC1 PO (12:47)
--- NOTE | 2017-06-20 13:37 | NUR ---
DISCHARGE PAPERWORK REVIEWED AND IV TO RIGHT FOREARM D/C WITH CATH TIP INTACT. PT TO D/C HOME.
--- NOTE | 2017-06-30 10:35 | CN ---
PATIENT NAME:MARCELO PALACIOS MEDICAL RECORD: [id number] : [birth year] LOCATION:[id number] ADMIT DATE: 06/13/17 ACCOUNT: [id number] CONSULTING PHYSICIAN: CHARLIE MARCELO MD REFERRING PHYSICIAN: LEOBARDO HEATH MD DATE OF CONSULTATION: 06/13/2017 CONSULT REQUESTING PHYSICIAN: Leobardo Heath MD REASON FOR CONSULTATION: Acute respiratory failure, vent management. HISTORY OF PRESENT ILLNESS: Ms. Palacios is a 61-year-old female, who has a history of COPD and asthma. The patient came into the ER with a fever of 101 and also she has mental status changes. ABG showed a pH of 7.26 with a pCO2 of 70.6. The patient was electively intubated. Now, she is orally intubated and sedated. The history was taken mainly by reviewing the ER notes, talking to the ER doctor as well as the patient notes. REVIEW OF SYSTEMS: Mainly in the history of present illness. PAST MEDICAL HISTORY: 1. COPD. 2. Asthma. 3. Emphysema. 4. Hypothyroidism. 5. Depression. PAST SURGICAL HISTORY: 1. Tonsillectomy and adenoidectomy. 2. Appendectomy. 3. Hysterectomy. ALLERGIES: SHE IS ALLERGIC TO IODINE AND AVELOX. PRESENT MEDICATIONS: On NsGene was reviewed. PERSONAL AND SOCIAL HISTORY: The patient is still a current everyday smoker. She is a nondrinker. FAMILY HISTORY: Noncontributory. PHYSICAL EXAMINATION: GENERAL: Now, the patient is orally intubated and sedated. VITAL SIGNS: The blood pressure 104/66, pulse is 68, respirations 20, temperature is 99.3. The T-max was 101, SPO2 is 96%. She is on assist control mechanical ventilation. HEENT: Conjunctivae pink, sclerae nonicteric. NECK: Supple, no JVD. CHEST: The chest excursion is minimal on both sides. There are wheeze with expiration. There are basal crackles. HEART: Rhythm regular, normal sound, no murmur. ABDOMEN: Soft. Bowel sounds present. No hepatosplenomegaly. RECTAL: Deferred. EXTREMITIES: No cyanosis, no clubbing, no pedal edema. SKIN: Warm, normal turgor. CONSULT REPORT [id number] MARCELO PALACIOS CENTRAL NERVOUS SYSTEM: The patient is orally intubated and sedated. There are no obvious cranial nerve abnormality. CHEST RADIOGRAPH: There are bilateral lower lobe patchy infiltrate. CT scan of the head was negative for any acute process. OTHER LABORATORY DATA: CBC: WBC 13.8, hemoglobin 15.1, hematocrit 48.3, the platelet count 177. Chemistries: Sodium 135, potassium 5.7, chloride 99, bicarbonate is 31.5, BUN is 20, creatinine 0.8, AST is 20, ALT is 8. LABORATORY DATA: ABG: The pH was 7.26, pCO2 is 70.6, the pO2 of 455, the bicarb is 32.1. This was done on the 100% oxygen on mechanical ventilation. IMPRESSION: 1. Hucek-ag-fuojsdp hypoxic hypercapnic respiratory failure. 2. Respiratory acidosis secondary to wbhwz-do-gpthoow hypoxic hypercapnic respiratory failure. 3. Systemic inflammatory response syndrome type of syndrome with leukocytosis and hypotension and fever. 4. Bilateral pneumonia. 5. Acute exacerbation of chronic obstructive pulmonary disease. 6. Mental status changes secondary to hypercarbia. 7. Leukocytosis. RECOMMENDATIONS: 1. Continue the Zosyn IV, Levaquin IV, methylprednisolone IV, albuterol/ipratropium nebulizer, Brovana and budesonide nebulizer. 2. GI and ulcer prevention, DVT prophylaxis. We will check the sputum culture. 3. Follow up labs and chest radiograph in the morning. Dr. Heath, thank you for involving me in the care of Ms. Palacios. TRANSINT:[id number] Voice Confirmation ID: [id number] DOCUMENT ID: [id number] CHARLIE MARCELO MD at 1035 CC: LEOBARDO HEATH MD [id number] DICTATION DATE: 06/13/17 1744 FACILITIES MAINTENANCE WORKER: 06/13/172203 DIS IN 06/20/17 [place] [id number] [place] [id number]
--- NOTE | 2017-07-10 11:14 | DS ---
PATIENT:MARCELO PATTERSON :51 MEDICAL RECORD: [id number] DISCHARGE SUMMARY ADMISSION DATE: 06/13/17 DISCHARGE DATE: 06/20/17 This is a discharge dated 06/20/2017 from the inpatient hospital. DISCHARGE DIAGNOSES: 1. Ywnuf-sy-sblbnrc hypoxic hypercapnic respiratory failure. 2. COPD with acute exacerbation. 3. Bilateral pneumonia. 4. Respiratory acidosis. 5. Altered mental status. 6. Hypothyroidism. 7. Depression. 8. Anxiety. 9. Tobacco abuse. 10. Insomnia. CONSULTS IN THIS HOSPITALIZATION: Pulmonary with Amish Llamas MD HOSPITAL COURSE: Full H&P is located elsewhere on the chart on this 61-year-old female who was admitted for evaluation of shortness of breath and altered mental status. She was intubated in the Emergency Room with acute hypoxic hypercapnic respiratory failure. She was placed on mechanical ventilation and admitted to the intensive care unit. Dr. Llamas was consulted for pulmonary management. She was started on Zosyn and Levaquin for antibiotic coverage and IV steroids. She had Brovana, budesonide, and DuoNeb for respiratory support. Sputum culture was obtained. Chest x-rays were monitored for changes. She was successfully weaned from the ventilator and extubated. Blood cultures and urine cultures were negative. She was resumed on appropriate home medications. Electrolytes were managed by protocol. Vancomycin was added for additional antibiotic coverage. Steroids were weaned. Case management was involved for discharge planning. She improved clinically with improvement in imaging as well and was considered stable for discharge on 06/20/2017. DISCHARGE MEDICATIONS: As per discharge medication reconciliation. DISCHARGE DISPOSITION: The patient is discharged home. She will continue her current diet and level of activity. She will complete antibiotics for 3 additional days. She will follow up with her primary care in [place] and it is recommended that she follow up with Dr. Llamas in 4-6 weeks or pulmonary in [place]. At least 30 minutes was spent in this discharge activity. TRANSINT:[id number] Voice Confirmation ID: [id number] DOCUMENT ID: [id number] Dictated By: CARITO GARSIA I have interviewed/examined the above patient and agree with these documented findings. DISCHARGE SUMMARY REPORT [id number] MENDOZAMARCELO SOMMER LORIE PRECIADO MD at 1120 at 1114 CC: [id number] DICTATION DATE: 07/09/17 180 ARTIFICIAL BREAST FABRICATOR: 07/09/178 DIS IN 06/20/17 [place] [id number] [place] [address]
== END 2017-06-20 13:38 | disposition home or self-care (01) | DRG 208 ==
LOC: D.ER 11:28 → D.ICU 15:20 → D.MS 15:20
PROVIDERS: Family Medicine; Internal Medicine Pulmonary Disease; ADMIT Family Medicine
PROC: 0BH17EZ Insertion of Endotracheal Airway into Trachea, Via Natural or Artificial Opening (ICD-10-PCS; principal; 2017-06-13)
PROC: 5A1935Z Respiratory Ventilation, Less than 24 Consecutive Hours (ICD-10-PCS; 2017-06-13)
PROC: 0T9B70Z Drainage of Bladder with Drainage Device, Via Natural or Artificial Opening (ICD-10-PCS; 2017-06-13)
DX: J96.21 Acute and chronic respiratory failure with hypoxia (principal); G93.41 Metabolic encephalopathy; J13 Pneumonia due to Streptococcus pneumoniae; J15.211 Pneumonia due to Methicillin susceptible Staphylococcus aureus; J44.0 Chronic obstructive pulmonary disease with (acute) lower respiratory infection; J44.1 Chronic obstructive pulmonary disease with (acute) exacerbation; E87.2 Acidosis; F17.203 Nicotine dependence unspecified, with withdrawal; J96.22 Acute and chronic respiratory failure with hypercapnia; I95.9 Hypotension, unspecified; E03.9 Hypothyroidism, unspecified; F32.9 Major depressive disorder, single episode, unspecified

== ENCOUNTER 2017-07-13 13:24 | Inpatient (IN) | payer MEDICARE, BC ==
[~2017-07-13] VITALS: Ht 162.6 cm; Wt 79.1 kg
[~2017-07-13 13:24] MED LIST changes: +FLORAJEN3 CAPS460 MG PO; +IPRAT-ALBUT 0.5-3 ML INH; +Levaquin PO; +MUCINEX DM ER1 EAC1 PO; +TESSALON PERLE100 MG PO; +VIBRAMYCIN 100100 MG PO
[2017-07-13 14:43] LABS: BASOPHILS 0.4 % (0-2); EOSINOPHILS 0.1 % (0-7); HEMATOCRIT 44.3 % (36.0-48.0); HEMOGLOBIN 14.4 g/dL (12-16); IMMATURE GRANULOCYTES 3.1 % (0-5); LYMPHOCYTES 5.8 % (15-50); MCH 28.9 pg (26.0-34.0); MCHC 32.5 g/dL (31.0-37.0); MCV 88.8 fL (80.0-100.0); MEAN PLATELET VOLUME 9.6 fL (7.4-10.4); MONOCYTES 5.2 % (2-11); NEUTROPHILS 85.4 % (40-80); RBC 4.99 10x6/uL (4.00-5.40); RDW 15.6 % (11.5-14.5)
[2017-07-13 14:46] LABS: PLATELET COUNT 438 10x3/uL (130-400)
[2017-07-13 14:47] LABS: APPEARANCE CLOUDY (CLEAR); COLOR AMBER (YELLOW)
[2017-07-13 14:48] LABS: BILIRUBIN 2+ (NEGATIVE); GLUCOSE NEGATIVE (NEGATIVE); KETONE NEGATIVE (NEGATIVE); NITRITE NEGATIVE (NEGATIVE); PROTEIN NEGATIVE (NEGATIVE)
[2017-07-13 14:49] LABS: BACTERIA MODERATE /hpf (NONE SEEN); RED CELLS - URINE 0-5 /hpf (0-5); WHITE CELLS - URINE 0-5 /hpf (0-5)
[2017-07-13 15:00] LABS: ALBUMIN 2.6 g/dL (3.4-5.0); ALKALINE PHOSPHATASE 95 U/L (46-116); ALT (SGPT) 18 U/L (10-68); BILIRUBIN - TOTAL 0.46 mg/dL (0.2-1.3); CALC OSMOLALITY 256 mosm/kg (275-300); CALCIUM 9.9 mg/dL (8.5-10.1); CARBON DIOXIDE 32.6 mmol/L (21.0-32.0); CHLORIDE - SERUM 86 mmol/L (98-107); CREATININE - SERUM 1.1 mg/dL (0.6-1.3); GLUCOSE 160 mg/dL (74-106); POTASSIUM - SERUM 4.8 mmol/L (3.5-5.1); SODIUM 126 mmol/L (136-145); UREA NITROGEN 15 mg/dL (7-18); eGFR NON AFRICAN AMERICAN 53 mL/min (90-120)
[2017-07-13 15:15] LABS: CKMB 2.8 U/L (0.0-3.6); CREATINE KINASE 116 UL (21-215)
[2017-07-13 15:16] LABS: TROPONIN-I < 0.017 ng/mL (0.000-0.060)
[2017-07-13 19:00] VITALS: BP 87/56
[2017-07-13 19:18] LABS: CKMB 1.4 U/L (0.0-3.6); CREATINE KINASE 77 UL (21-215); TROPONIN-I < 0.017 ng/mL (0.000-0.060)
--- NOTE | 2017-07-13 19:40 | NUR ---
PATIENT RESTING IN BED AND DENIES NEEDS AT THIS TIME. SWITCHED BAG OF IV FLUIDS. ASSESSMENT COMPLETED. BED IN LOWEST POSITION AND CALL LIGHT WITHIN REACH. ENCOURAGED THE PATIENT TO CALL IF SHE HAS NEEDS.
[2017-07-13] MEDS ORDERED: OXYCONTIN40 MG PO (20:01)
[2017-07-13 21:20] VITALS: BP 82/44
[2017-07-13 23:37] LABS: CKMB 1.2 U/L (0.0-3.6); CREATINE KINASE 121 UL (21-215)
[2017-07-13 23:39] LABS: TROPONIN-I < 0.017 ng/mL (0.000-0.060)
--- NOTE | 2017-07-13 23:45 | NUR ---
SPOKE WITH DR. PURCELL IN REGARDS TO PATIENT'S LOW BP, ELEVATED PULSE, WHEEZING, AND SHORTNESS OF BREATH. DR. PURCELL ORDERED A 500ML BOLUS AND BREATHING TX.
--- NOTE | 2017-07-13 23:52 | NUR ---
STARTED 500CC BOLUS
[2017-07-14] VITALS (41 sets, daily range): BP systolic 83–130; BP diastolic 48–71; BMI 24.0
--- NOTE | 2017-07-14 02:37 | NUR ---
PT BP WAS OVER 100 ABLE TO ADMIN PAIN MED. PT STATED PAIN OVER A 10 ALL OVER, WILL CONTINUE TO MONITOR AFTER PAIN MEDS ADMIN, BED IN LOW POSITION CALL LIGHT IN REACH NO OTHER NEEDS AT THIS TIME
[2017-07-14 05:16] LABS: BASOPHILS 0.2 % (0-2); EOSINOPHILS 0.1 % (0-7); HEMATOCRIT 39.1 % (36.0-48.0); HEMOGLOBIN 12.7 g/dL (12-16); IMMATURE GRANULOCYTES 6.2 % (0-5); LYMPHOCYTES 3.7 % (15-50); MCH 28.7 pg (26.0-34.0); MCHC 32.5 g/dL (31.0-37.0); MCV 88.5 fL (80.0-100.0); MEAN PLATELET VOLUME 9.4 fL (7.4-10.4); MONOCYTES 3.6 % (2-11); NEUTROPHILS 86.2 % (40-80); PLATELET COUNT 360 10x3/uL (130-400); RBC 4.42 10x6/uL (4.00-5.40); RDW 15.6 % (11.5-14.5)
[2017-07-14 05:22] LABS: WBC 16.3 10x3/uL (4.8-10.8)
[2017-07-14 06:00] LABS: ALKALINE PHOSPHATASE 63 U/L (46-116); AMYLASE - SERUM 6 U/L (25-115); CARBON DIOXIDE 31.9 mmol/L (21.0-32.0); CHLORIDE - SERUM 95 mmol/L (98-107); CKMB 1.6 U/L (0.0-3.6); CREATINE KINASE 167 UL (21-215); CREATININE - SERUM 0.9 mg/dL (0.6-1.3); POTASSIUM - SERUM 4.7 mmol/L (3.5-5.1); PROTEIN - SERUM 5.4 g/dL (6.4-8.2); SODIUM 130 mmol/L (136-145); TROPONIN-I < 0.017 ng/mL (0.000-0.060); eGFR NON AFRICAN AMERICAN 67 mL/min (90-120)
[2017-07-14 06:04] LABS: ALBUMIN 1.8 g/dL (3.4-5.0); ALT (SGPT) 24 U/L (10-68); CALC OSMOLALITY 262 mosm/kg (275-300); GLUCOSE 89 mg/dL (74-106); LIPASE 37 U/L (73-393); UREA NITROGEN 20 mg/dL (7-18)
--- NOTE | 2017-07-14 07:45 | NUR ---
ASSESSMENT PER FLOW SHEET.PT WITHOUT DISTRESS.ABD PAIN 6/10 SCALE. PT HAD PAIN MEDS AT 0630 PER OTONIEL.NPO FOR SURGERY TODAY.MONITOR FOR NEEDS
--- NOTE | 2017-07-14 09:51 | NUR ---
TO OR VIA BED
--- NOTE | 2017-07-14 12:14 | NUR ---
1214: ATTEMPTED TO REACH FAMILY EXT 2500,2525. NO FAMILY PRESENT AT THIS TIME. , FELIPE, STATED HE MAY HAVE TO STEP OUT OF A LITTLE BIT AFTER THE PROCEDURE STARTS. WILL ATTEMPTED TO REACH FAMILY AGAIN. -ECOSTER
--- NOTE | 2017-07-14 14:30 | NUR ---
REC'D VIA BED FROM SURGERY STAFF, PLACED ON VENT AT 100%, SBP 8O, LEVAPHED IN USE, PUMP REPROGRAMED IN ICU MODE,5 MCG/MIN, INITITATED, VENT IN AC MODE, ETT IN PLACE AND SECURED, ABODMEN WITH MIDLINE DRESSING, CDI, MAGNOLIA DRAINS TO LEFT AND RIGHT LOWER QUADRANT, SANGUINOUS DRAINAGE TO COLLASPED BULBS, UPPER LEFT QUADRANT WITH COLOSTOMY, WITH BEEFY RED STUMP, VALDEZ TO GRAVITY WITH DARK CONCENTRATIED DRAINAGE TO BAG, SCD'S B/L, RIGHT FA PIV WITH NS INFUSING, LEFT SC TL WITH CDI DRESSING, ASSESSMENT COMPLETED PER FLOWSHEET, SPOUSE TO BEDSIDE, STATUS UPDATED, PASSWORD OBTAINED, (FELIPE), VERY TEARFUL, NOT EASILY CONSOLED, WILL CONTINUE WITH POC
--- NOTE | 2017-07-14 14:45 | NUR ---
SBP 78, LEVAPHED TITRATED TO 15 MCG
--- NOTE | 2017-07-14 15:15 | NUR ---
SBP 82 WITH MAP OF 54, LEVAPHED TITRATED TO 20 MCG
--- NOTE | 2017-07-14 15:16 | NUR ---
Wound care consult: Notified by primary RN Sally of consult d/t new colostomy. Pt just recently returned from OR. Colostomy noted left upper quad. Stoma bright red with small amount of bleeding. Wound care will continue following.
--- NOTE | 2017-07-14 16:30 | NUR ---
I AND 0'S COMPLETED, VASSOPRESSION INITIATED AT 0.04 UNITS/MIN PER ORDER
--- NOTE | 2017-07-14 17:44 | NUR ---
EYES OPEN, BREATHING OVER VENT AT 17 BPM, VSS, SBP 110 MAP 70 LEVAPHED TIRATED TO 20 MCG
--- NOTE | 2017-07-14 19:20 | NUR ---
REPORT RECIEVED, SHIFT ASSESSMENT COMPLETE, PT IS SEDATED ON VENT, 97% O2 SAT. LUNGS CLEAR IN B/L UPPER LOBES, DIMINISHED IN B/L LOWER LOBES, S1S2, CM-ST, PATENT NGT TO LIWS WITH GREEN DRAINAGE NOTED, PATENT LEFT SC CVL..SEE IV FLOW SHEET...MIDLINE INCISION TO ABDOMEN IS CDI, ABSENT BS NOTED, B/L ABDOMINAL MAGNOLIA DRAINS WITH SEROSANG DRAINAGE, PATENT F/C WITH CONCETRATED UOP, ALL PPP, ORAL CARE PROVIDED, WILL CON'T TO MONITOR
--- NOTE | 2017-07-14 21:30 | NUR ---
REPOSITIONED FOR COMFORT, ORAL CARE PROVIDED,
--- NOTE | 2017-07-14 23:04 | NUR ---
REASSESSMENT COMPLETE, NO CHANGES NOTED, PT REPOSITIONED FOR COMFORT, ORAL CARE PROVIDED,
[2017-07-15] VITALS (96 sets, daily range): BP systolic 76–137; BP diastolic 32–85
--- NOTE | 2017-07-15 01:15 | NUR ---
REPOSITIONED FOR COMFORT, ORAL CARE PROVIDED,
--- NOTE | 2017-07-15 03:27 | NUR ---
REASSESSMENT COMPLETE, PT NOW AWAKE AND FOLLOWING COMMANDS, NO OTHER CHANGES NOTED, WILL CON'T TO MONITOR
[2017-07-15 04:20] LABS: HEMATOCRIT 34.6 % (36.0-48.0); HEMOGLOBIN 10.8 g/dL (12-16); MCH 28.2 pg (26.0-34.0); MCHC 31.2 g/dL (31.0-37.0); MCV 90.3 fL (80.0-100.0); MEAN PLATELET VOLUME 10.1 fL (7.4-10.4); PLATELET COUNT 278 10x3/uL (130-400); RBC 3.83 10x6/uL (4.00-5.40); RDW 16.4 % (11.5-14.5); WBC 21.4 10x3/uL (4.8-10.8)
[2017-07-15 04:47] LABS: EOSINOPHILS 1 % (0-7); LYMPHOCYTES 3 % (15-50); MONOCYTES 3 % (2-11); NEUTROPHILS 88 % (40-80); PLATELET ESTIMATE NORMAL
[2017-07-15 04:57] LABS: ALBUMIN 1.1 g/dL (3.4-5.0); ALKALINE PHOSPHATASE 59 U/L (46-116); ALT (SGPT) 17 U/L (10-68); CALC OSMOLALITY 279 mosm/kg (275-300); CALCIUM 7.2 mg/dL (8.5-10.1); CARBON DIOXIDE 18.6 mmol/L (21.0-32.0); CHLORIDE - SERUM 106 mmol/L (98-107); CREATININE - SERUM 1.2 mg/dL (0.6-1.3); GLUCOSE 105 mg/dL (74-106); MAGNESIUM - SERUM 1.9 mg/dL (1.8-2.4); PHOSPHOROUS 4.7 mg/dL (2.5-4.9); POTASSIUM - SERUM 5.1 mmol/L (3.5-5.1); PROTEIN - SERUM 4.2 g/dL (6.4-8.2); SODIUM 137 mmol/L (136-145); TROPONIN-I < 0.017 ng/mL (0.000-0.060); UREA NITROGEN 30 mg/dL (7-18); eGFR NON AFRICAN AMERICAN 48 mL/min (90-120)
--- NOTE | 2017-07-15 17:05 | NUR ---
PATIENT AWAKE AT BEGINING OF SHIFT, LIFTING ARMS UP AND DOWN MOVING LEGS. LOOK OF DISTRESS ON FACE. FENTANYL INCREASED TO 100 MCG/HOUR, THEN TO 150 MCG/HOUR. PATIENT WILL WAKE UP OPEN EYES WILL REACH FOR ETT WHEN NOT RESTRAINTED. ETT SECURE TO VENT MINIMAL SECRETIONS FROM ETT. NG FLUSHED CHECKED FOR PLACEMENT. NO DRAINAGE IN CONTAINER. MID LINE INCISION DRY AND INTACT. MAGNOLIA DRAINS INTACT AND EMPITIED NUMBEROUS TIMES. BLOODier DRAINAGE OUT OF #2 THAN #1. norman cath patent draining cloudy justyn urine. small amount this shift. hands and feet cold. socks placed on feet. left subclavian triple lumen infusing with ns at 150 ml hour, levophed wean to 17 mcg/min. vasopressin at 0.04 mcg. patient rest well. morphine given once family felt like she was not comfortable. monitor SR.
--- NOTE | 2017-07-15 17:12 | NUR ---
DR. Wagoner TALKED WITH FAMILY AND THIS AM.
--- NOTE | 2017-07-15 19:43 | NUR ---
1900 ASSUMED CARE FROM ARLYN UREÑA. PM ASSESSMENT DOCUMENTED PER FLOWSHEET. ALL VITALS WNL. WILL CONTINUE TO MONITOR CLOSELY.
[2017-07-16] VITALS (88 sets, daily range): BP systolic 91–149; BP diastolic 46–85
--- NOTE | 2017-07-16 00:05 | NUR ---
2300 REASSESSMENT DOCUMENTED PER FLOWSHEET. REPOSITIONED USING PILLOWS, HEELS BRIDGED. ORAL CARE PERFORMED. COLOSTOMY AND MAGNOLIA DRAINS EMPTIED.
--- NOTE | 2017-07-16 00:25 | NUR ---
PATIENT AWAKE AND AGITATED, MORPHINE GIVEN PER MAR. WILL MONITOR FOR EFFECTIVENESS.
--- NOTE | 2017-07-16 02:46 | NUR ---
MEDS GIVEN PER OCT. MORPHINE GIVEN. PATIENT AWAKE AND AGITATED. WILL MONITOR FOR EFFECTIVENESS.
--- NOTE | 2017-07-16 03:12 | NUR ---
0300 REASSESSMENT DOCUMENTED PER FLOWSHEET
--- NOTE | 2017-07-16 04:55 | NUR ---
BLOOD DRAWN FROM LEFT SUBCLAVIAN, RESP AT BEDSIDE FOR ABG
[2017-07-16 05:05] LABS: BASOPHILS 1.9 % (0-2); EOSINOPHILS 0 % (0-7); IMMATURE GRANULOCYTES 24.2 % (0-5); LYMPHOCYTES 4.1 % (15-50); MCH 28.1 pg (26.0-34.0); MCHC 32.2 g/dL (31.0-37.0); MEAN PLATELET VOLUME 9.7 fL (7.4-10.4); NEUTROPHILS 63.8 % (40-80); RDW 16.6 % (11.5-14.5); WBC 19.3 10x3/uL (4.8-10.8)
[2017-07-16 05:07] LABS: HEMATOCRIT 24.2 % (36.0-48.0); HEMOGLOBIN 7.8 g/dL (12-16); MCV 87.1 fL (80.0-100.0); RBC 2.78 10x6/uL (4.00-5.40)
[2017-07-16 05:08] LABS: PLATELET COUNT 167 10x3/uL (130-400)
[2017-07-16 05:22] LABS: BILIRUBIN - TOTAL 0.7 mg/dL (0.2-1.3); CREATININE - SERUM 1.4 mg/dL (0.6-1.3); MAGNESIUM - SERUM 2.1 mg/dL (1.8-2.4); PHOSPHOROUS 4.1 mg/dL (2.5-4.9); PROTEIN - SERUM 4.3 g/dL (6.4-8.2)
[2017-07-16 05:24] LABS: ANION GAP 13.3 mmol/L (8-16); CARBON DIOXIDE 24.9 mmol/L (21.0-32.0); POTASSIUM - SERUM 4.2 mmol/L (3.5-5.1)
[2017-07-16 05:25] LABS: ALBUMIN 1.5 g/dL (3.4-5.0); CALCIUM 6.9 mg/dL (8.5-10.1)
--- NOTE | 2017-07-16 06:05 | NUR ---
CALLED DR. CORTES REGARDING DROP IN H/H AND CALCIUM. T/O GIVEN TO TRANSFUSE 2 UNITS PRBC AND 4GRAMS OF CALCIUM GLUCONATE. VERIFIED ORDER.
--- NOTE | 2017-07-16 09:41 | NUR ---
VANCOMYCIN TROUGH WAS 24.8 DRAWN CORRECTLY. PATIENT HAS HAD LITTLE URINE OUTPUT IN THE PAST FEW DAYS, PER HER NURSE. WILL GET A RANDOM @1600 TODAY TO SEE HOW WELL THE VANCOMYCIN IS CLEARING. IF THE LEVEL HAS RETURNED TO AN APPROPRIATE AMOUNT, WE WILL EXTEND THE DOSE INTERVAL AND REDOSE HER AT 1.25 GRAMS Q24H. IF LEVEL IS NOT IN RANGE, WE WILL CONTINUE TO HOLD DOSES AND CHECK A RANDOM IN THE AM 07/17
--- NOTE | 2017-07-16 18:36 | NUR ---
LEVOPHED WEANED OFF. 2 UNITS OF BLOOD GIVEN. VASOPRESSIN AT 0.01UNITS HOUR FENTANYL AT 200 MCG/HOUR. VALDEZ CATH PATENT, URINE OUTPUT IMPROVED. URINE CLEARER TODAY THAN YESTERDAY. MAGNOLIA DRAINS DRAINAGE DECREASED. ABD DRESSING DRY AND INTACT. PATIENT MORE ALERT. NODES HEAD YES AND NO TO QUESTIONS APPROPIATELY. LEFT SUBCLAVIAN TRIPLE LUMEN CENTRAL LINE INFUSING WITH D5W WITH 3 AMPS OF BI CARB AT 100 ML HOUR. NS AT KVO FOR IVPB. FENTANYL AND VASO PRESSIN. AWAKES EASILY TO VERBAL STIMULI, WILL HOLD SELF OVER ON SIDE. NO SKIN BREAKDOWN NOTED. FEET AND HANDS WARM TODAY. TV INCREASED ON VENT TO 550. NO OTHER VENT CHANGES MADE TODAY. COLOSTOMY BAG WITH SOFT BROWN BM IN IT. STOMA PINK. SCD ON LOWER LEGS. MONITOR SR SB.
--- NOTE | 2017-07-16 18:41 | NUR ---
DR. CORTES TALKED WITH FAMILY TODAY. QUESTIONS ANSWERED. PATIENT RESPONSES TO FAMILY
--- NOTE | 2017-07-16 19:30 | NUR ---
ASSESSMENT COMPLETE. S1S2. NSR SHOWING ON MONITOR. MECHANICAL VENT; RR DIMINISHED BILATERALLY IN LOWER LOBES; CLEAR BILATERALLY IN UPPER LOBES. PERRLA. RADIAL AND PEDAL PULSES PALPATED. DEPENDENT EDEMA NOTED TO UPPER EXTREMITIES. LEFT CVL; PATENT. MAGNOLIA DRAIN X2 IN R/L ABD. OPENS EYES SPONTANEOUSLY; OBEYS COMMANDS. WEAKNESS NOTED TO UPPER AND LOWER EXTREMITIES. SEROUS DRAINAGE NOTED TO LEFT MAGNOLIA DRAIN; BROWN DRAINAGE NOTED TO RIGHT MAGNOLIA DRAIN. NGT TO LIS.
--- NOTE | 2017-07-16 22:00 | NUR ---
NO VISITORS DURING VISITATION.
--- NOTE | 2017-07-16 22:35 | NUR ---
VASOPRESSIN DISCONTINUED. MONITORING CLOSELY.
--- NOTE | 2017-07-16 23:10 | NUR ---
REASSESSMENT COMPLETE. NO ACUTE CHANGES FROM PREVIOUS ASSESSMENT. VSS. WILL CONTINUE TO MONITOR.
[2017-07-17] VITALS (29 sets, daily range): BP systolic 95–124; BP diastolic 55–84
--- NOTE | 2017-07-17 01:30 | NUR ---
PT RESTING; EYES CLOSED. VSS. NO DISTRESS NOTED. WILL CONTINUE TO MONITOR.
--- NOTE | 2017-07-17 03:10 | NUR ---
REASSESSMENT COMPLETE. NO ACUTE CHANGES FROM PREVIOUS ASSESSMENT. SEE FLOW SHEET FOR DETAILS.
[2017-07-17 04:16] LABS: BASOPHILS 0.5 % (0-2); EOSINOPHILS 0 % (0-7); IMMATURE GRANULOCYTES 19.8 % (0-5); LYMPHOCYTES 4.8 % (15-50); MCH 29.2 pg (26.0-34.0); MCV 88.4 fL (80.0-100.0); MEAN PLATELET VOLUME 9.7 fL (7.4-10.4); MONOCYTES 5.6 % (2-11); NEUTROPHILS 69.3 % (40-80); RBC 3.29 10x6/uL (4.00-5.40); RDW 16.4 % (11.5-14.5)
[2017-07-17 04:27] LABS: HEMATOCRIT 29.1 % (36.0-48.0); HEMOGLOBIN 9.6 g/dL (12-16); PLATELET COUNT 97 10x3/uL (130-400); WBC 10.1 10x3/uL (4.8-10.8)
[2017-07-17 04:56] LABS: ALBUMIN 1.4 g/dL (3.4-5.0); ANION GAP 9.4 mmol/L (8-16); BILIRUBIN - TOTAL 0.64 mg/dL (0.2-1.3); CALCIUM 7.5 mg/dL (8.5-10.1); CREATININE - SERUM 1.3 mg/dL (0.6-1.3); MAGNESIUM - SERUM 2.2 mg/dL (1.8-2.4); POTASSIUM - SERUM 3.6 mmol/L (3.5-5.1); PROTEIN - SERUM 4.2 g/dL (6.4-8.2)
[2017-07-17 04:57] LABS: CARBON DIOXIDE 31.2 mmol/L (21.0-32.0); PHOSPHOROUS 2.5 mg/dL (2.5-4.9)
--- NOTE | 2017-07-17 05:40 | NUR ---
NO VISITORS DURING VISITATION.
--- NOTE | 2017-07-17 06:15 | NUR ---
SPOKE WITH SISTER ON TELEPHONE. UPDATE GIVEN. QUESTIONS ANSWERED. VERIFIED CALL IN CODE. COMPLIMENTS GIVEN FOR HOSPITAL AND ICU STAFF.
--- NOTE | 2017-07-17 07:00 | NUR ---
PT REPORT REC'D, PT CARE ASSUMED. PT OPENS EYES, FOLLOWS COMMANDS, ON VENT. VSS, NO SIGNS OF DISTRESS. LEFT SUBCLAVIAN CVL WITH FLUIDS INFUSING, SEE FLOW SHEET. MAGNOLIA DRAIN TO RIGHT ABDOMEN, WITH BROWN DRAINAGE, COMPRESSED. LEFT ABDOMEN MAGNOLIA DRAIN WITH SEROSANG DRAINAGE, COMPRESSED. LEFT ABDOMEN COLOSTOMY. VALDEZ CATHETER FREE OF KINKS TO GRAVITY. SHIFT ASSESSMENT COMPLETED, SEE FLOW SHEET. ROOM FREE OF CLUTTER, CALL LIGHT IN REACH, BED ALARM ACTIVE, WILL CONTINUE TO MONITOR PT.
--- NOTE | 2017-07-17 10:00 | NUR ---
DR. PURCELL AT THE BEDSIDE.
--- NOTE | 2017-07-17 10:21 | NUR ---
NUTRITION F/U CHART REVIEWED. PT REMAINS SEDATED ON VENT. NO CURRENT NUTRITION SUPPORT. WILL MONITOR PT PROGRESS. ASSIST NUTRITION SUPPORT NEEDED. RD FOLLOWING
--- NOTE | 2017-07-17 11:00 | NUR ---
REPOSITIONED PT, PROPPED WITH PILLOWS, VSS, REASSESSMENT COMPLETED, SEE FLOW SHEET. ROOM FREE OF CLUTTER, CALL LIGHT IN REACH, BED ALARM ACTIVE, WILL CONTINUE TO MONITOR PT.
--- NOTE | 2017-07-17 13:00 | NUR ---
PT FAMILY AT THE BEDSIDE, ALL QUESTIONS ANSWERED, VSS, WILL CONTINUE TO MONITOR PT.
--- NOTE | 2017-07-17 13:37 | NUR ---
Unable to assess dc plans/needs at this time. Patient sedated, on vent. No family present.
--- NOTE | 2017-07-17 14:45 | OP ---
PATIENT NAME: MARCELO PATTERSON MEDICAL RECORD: [id number] :51 LOCATION:D.[facility] [id number] ADMISSION DATE:07/13/17 SURGEON: ALFRED PURCELL MD DATE OF OPERATION: 07/14/2017 PREOPERATIVE DIAGNOSES: 1. Perforated viscus. 2. Chronic obstructive pulmonary disease. 3. Sepsis. 4. Peritonitis. 5. Gram-positive bacteremia. 6. Asthma. 7. Thyroid disease. 8. Depression. POSTOPERATIVE DIAGNOSES: 1. Perforated viscus. 2. Chronic obstructive pulmonary disease. 3. Sepsis. 4. Peritonitis. 5. Gram-positive bacteremia. 6. Asthma. 7. Thyroid disease. 8. Depression. PROCEDURES: 1. Exploratory laparotomy. 2. Lysis of adhesions. 3. Sigmoid and proximal rectal colon resection. 4. Colostomy placement. 5. Left subclavian vein triple-lumen central venous line placement. SURGEON: Alfred Purcell MD REPORT OF PROCEDURE: The patient's abdomen and left chest were prepped and draped in sterile fashion. A needle was used to cannulate the left subclavian vein and the guidewire was advanced with ease. Over this wire, a dilator was placed, followed by the triple-lumen catheter. The catheter aspirated nonpulsatile dark blood and flushed easily in all 3 ports. This was sutured into place with 3-0 silk ties and dressed appropriately. A midline incision was performed through the abdomen. Electrocautery was used to dissect through the subcutaneous tissues and into the abdominal cavity through the fascia. There was a significant amount of adhesions of the omentum to the anterior abdominal wall and also small bowel to the pelvis. A tedious dissection was performed to free up all of the bowel from the surrounding adhesions. This took approximately 30-45 minutes. Once we had the bowel completely freed up, the colon was noted to be markedly distended and swollen with a significant amount of stool present within it. As we went down towards the sigmoid colon and proximal rectum, there was noted to be a perforation with feculent material in the abdominal cavity. The patient had an opening on the right side of the colon laterally right at the rectosigmoid junction. We were able to free up the left colon and mobilize it medially. We took down the splenic flexure. We then were able to transect the descending colon in the mid descending colon with a 75 blue load RANDALL stapler. We took down the attachments of the bowel to the pelvis and the inferior abdominal wall. We eventually came through the mesentery and took OPERATIVE REPORT [id number] LEONARDOMARCELO S down any vascular structures with clamp and tie technique with 2-0 silks. Eventually, we were able to get distal to the perforation in the proximal rectum. We then transected this portion of the bowel using electrocautery as it was too thick for the stapler. Once we had this bowel transected, we sent off the sigmoid colon and proximal rectum for permanent specimen. We removed any of the stool that was present in the rectum with digital disimpaction. We then were able to reapproximate the edges of the proximal rectum transversely using running 2-0 Prolene. We left the sutures long on each end to help find it later. We then irrigated out the abdomen thoroughly with normal saline with care taken to make sure that we got all of the gross contamination from the abdominal cavity. At the conclusion of the case, the abdominal cavity appeared to be fairly clean. The NG tube was checked and noted to be in good position in the stomach. We then placed 19-Khmer Keith drains in the bilateral lower quadrants and placed them across the pelvis and in the left paracolic gutter. These were sutured in place with 4-0 nylons. The proximal colon was manipulated and freed up from the omental attachments. We then made an opening in the left upper quadrant and went through the abdominal wall to house our colostomy bag. We were able to pull the descending colon through the colostomy site. We then closed the midline fascia using running #1 looped PDS times 2. The skin was then closed with gayla and covered with a dressing. We then matured the ostomy using multiple interrupted 4-0 Vicryls. There was a good brooked ostomy present with no sign of any bleeding. At this point, dressings were applied and the new colostomy bag was placed. COMPLICATIONS: None. CONDITION: Critical. ANESTHESIA: General endotracheal. BLOOD LOSS: 100 mL. TRANSINT:[id number] Voice Confirmation ID: [id number] DOCUMENT ID: [id number] ALFRED PURCELL MD at 1443 CC: [id number] DICTATION DATE: 07/14/17 1422 INSTRUCTIONAL DESIGN MANAGER: 07/14/17 1531 ADM IN [facility] [address] [place] [address]
--- NOTE | 2017-07-17 15:00 | NUR ---
REPOSITIONED PT, PROPPED WITH PILLOWS, VSS, REASSESSMENT COMPLETED, SEE FLOW SHEET. ROOM FREE OF CLUTTER, CALL LIGHT IN REACH, BED LOCKED IN LOWEST POSITION, WILL CONTINUE TO MONITOR PT.
--- NOTE | 2017-07-17 16:33 | NUR ---
REPOSITIONED PT, PROPPED WITH PILLOWS, VSS, WILL CONTINUE TO MONITOR PT.
--- NOTE | 2017-07-17 19:15 | NUR ---
REPORT RECIEVED, SHIFT ASSESSMENT COMPLETE, PT IS SEDATED ON VENT, FOLLOWS COMMANDS, ON 40% FIO2 WITH 98% O2 SAT. CRACKLES HEARD IN B/L UPPER LOBES, DIMINISHED IN B/L LOWER LOBES, S1S2, CM-SR, PATENT NGT TO LIWS WITH GREEN DRAINAGE NOTED, MIDLINE ABDOMINAL INCISION IS CDI, B/L MAGNOLIA ABDOMINAL DRAINS, DRSG CDI, PATENT F/C WITH ANI UOP, ALL PPP, VSS, WILL CON'T TO MONITOR
--- NOTE | 2017-07-17 21:00 | NUR ---
PT RESTING COMFORTABLY, REPOSITIONED FOR COMFORT, ORAL CARE PROVIDED,
[2017-07-18] VITALS (25 sets, daily range): BP systolic 100–123; BP diastolic 56–69
--- NOTE | 2017-07-18 01:00 | NUR ---
COMPLETE BATH AND LINEN CHANGE, PT TOLERATED WELL
--- NOTE | 2017-07-18 03:08 | NUR ---
RAD IN ROOM FOR DAILY CXR
[2017-07-18 04:29] LABS: BASOPHILS 0.3 % (0-2); EOSINOPHILS 0 % (0-7); HEMATOCRIT 31.1 % (36.0-48.0); HEMOGLOBIN 10.1 g/dL (12-16); IMMATURE GRANULOCYTES 12.8 % (0-5); LYMPHOCYTES 6.3 % (15-50); MCH 28.7 pg (26.0-34.0); MCHC 32.5 g/dL (31.0-37.0); MCV 88.4 fL (80.0-100.0); MEAN PLATELET VOLUME 10.6 fL (7.4-10.4); MONOCYTES 1.4 % (2-11); NEUTROPHILS 79.2 % (40-80); PLATELET COUNT 93 10x3/uL (130-400); RBC 3.52 10x6/uL (4.00-5.40); RDW 16.4 % (11.5-14.5); WBC 10.2 10x3/uL (4.8-10.8)
[2017-07-18 04:52] LABS: ANION GAP 6.8 mmol/L (8-16); CALCIUM 7.9 mg/dL (8.5-10.1); CARBON DIOXIDE 34.6 mmol/L (21.0-32.0); CREATININE - SERUM 1.1 mg/dL (0.6-1.3); POTASSIUM - SERUM 3.4 mmol/L (3.5-5.1)
--- NOTE | 2017-07-18 05:00 | NUR ---
REPOSITIONED FOR COMFORT, ORAL CARE PROVIDED,
--- NOTE | 2017-07-18 07:00 | NUR ---
PT REPORT REC'D, PT CARE ASSUMED, PT SEDATED ON VENT, VSS. LEFT SUBCLAVIAN CVL WITH FLUIDS INFUSING, SEE FLOW SHEET. COLOSTOMY SECURED, RIGHT LOWER ABDOMEN MAGNOLIA DRAIN COMPRESSED, LEFT LOWER ABDOMEN MAGNOLIA DRAIN COMPRESSED. VALDEZ CATHETER FREE OF KINKS TO GRAVITY, WTIH URINE RETURN. SHIFT ASSESSMENT COMPLETED, SEE FLOW SHEET. ROOM FREE OF CLUTTER, CALL LIGHT IN REACH, BED ALARM ACTIVE, WILL CONTINUE TO MONITOR PT.
--- NOTE | 2017-07-18 07:52 | NUR ---
NELLY CONTRERAS RN AT THE BEDSIDE
--- NOTE | 2017-07-18 09:00 | NUR ---
REPOSITIONED PT, PT TOLERATED WELL, VSS, WILL CONTINUE TO MONITOR PT.
--- NOTE | 2017-07-18 10:46 | NUR ---
Voice message left for spouse to return call to access DC plans/needs.
--- NOTE | 2017-07-18 12:00 | NUR ---
PT FAMILY AT THE BEDSIDE, ALL QUESTIONS ANSWERED, VSS, WILL CONTINUE TO MONITOR PT.
--- NOTE | 2017-07-18 13:00 | NUR ---
REPOSITINED PT, PROPPED WITH PILLOWS, VSS, WILL CONTINUE TO MONITOR PT.
--- NOTE | 2017-07-18 15:00 | NUR ---
REPOSITIONED PT, PROPPED WITH PILLOWS, VSS, REASSESSMENT COMPLETED, SEE FLOW SHEET. ROOM FREE OF CLUTTER, CALL LIGHT IN REACH, WILL CONTINUE TO MONITOR PT.
--- NOTE | 2017-07-18 17:04 | NUR ---
PT FAMILY AT THE BEDSIDE, ALL QUESTIONS ANSWERED, VSS, WILL CONTINUE TO MONITOR PT.
--- NOTE | 2017-07-18 19:15 | NUR ---
REPORT RECIEVED. ASSESSMENT COMPLETE PER FLOW SHEET. VSS ORAL ENDOTRACH CARE ADM. REPOSIIONED UP IN BED ON L SIDE. VSS. WILL CONTINUE TO MONITOR
--- NOTE | 2017-07-18 21:00 | NUR ---
NO VISITORS AT THIS TIME. VENT ALARMING SUCTION ADM VSS NEEDS MET
--- NOTE | 2017-07-18 21:43 | NUR ---
VANCOMYCIN TROUGH 21.3 DECREASED DOSE TO 1 GRAM Q24H AND ORDERED LEVEL PRIOR TO DOSE ON 07/19
--- NOTE | 2017-07-18 23:16 | NUR ---
REASSESSMENT COMPLETE PER FLOW SHEET. VSS. NO NEW CHANGES. WILL CONTINUE TO MONITOR
[2017-07-19] VITALS (25 sets, daily range): BP systolic 96–119; BP diastolic 53–70
--- NOTE | 2017-07-19 01:15 | NUR ---
COMPLETE BATH AND LINEN CHANGE, PT TOLERATED WELL
--- NOTE | 2017-07-19 03:08 | NUR ---
REASSESSMENT COMPLETE PER FLOW SHEET. VSS. NO NEW CHANGES. RADIOLOGY AT BEDSIDE. WILL CONTINUE TO MONITOR
[2017-07-19 03:53] LABS: BASOPHILS 0.5 % (0-2); EOSINOPHILS 0.3 % (0-7); HEMATOCRIT 32.9 % (36.0-48.0); HEMOGLOBIN 10.3 g/dL (12-16); IMMATURE GRANULOCYTES 11.5 % (0-5); LYMPHOCYTES 7.9 % (15-50); MCH 28.5 pg (26.0-34.0); MCHC 31.3 g/dL (31.0-37.0); MEAN PLATELET VOLUME 10.4 fL (7.4-10.4); MONOCYTES 4.2 % (2-11); NEUTROPHILS 75.6 % (40-80); RBC 3.61 10x6/uL (4.00-5.40); RDW 16.6 % (11.5-14.5); WBC 10.8 10x3/uL (4.8-10.8)
[2017-07-19 03:55] LABS: MCV 91.1 fL (80.0-100.0); PLATELET COUNT 140 10x3/uL (130-400)
[2017-07-19 04:07] LABS: ALBUMIN 1.3 g/dL (3.4-5.0); ALKALINE PHOSPHATASE 63 U/L (46-116); BILIRUBIN - TOTAL 0.72 mg/dL (0.2-1.3); CALCIUM 7.7 mg/dL (8.5-10.1); CARBON DIOXIDE 34.5 mmol/L (21.0-32.0); CHLORIDE - SERUM 109 mmol/L (98-107); GLUCOSE 118 mg/dL (74-106); MAGNESIUM - SERUM 2.2 mg/dL (1.8-2.4); PHOSPHOROUS 2.2 mg/dL (2.5-4.9); POTASSIUM - SERUM 3.1 mmol/L (3.5-5.1); SODIUM 148 mmol/L (136-145)
[2017-07-19 04:09] LABS: ALT (SGPT) 6 U/L (10-68); CALC OSMOLALITY 300 mosm/kg (275-300); CREATININE - SERUM 0.8 mg/dL (0.6-1.3); UREA NITROGEN 29 mg/dL (7-18); eGFR NON AFRICAN AMERICAN 76 mL/min (90-120)
--- NOTE | 2017-07-19 05:30 | NUR ---
REPOSITIONED FOR COMFORT, ORAL CARE PROVIDED
--- NOTE | 2017-07-19 07:00 | NUR ---
PT REPORT REC'D, PT CARE ASSUMED. PT SEDATED ON VENT, FOLLOWS COMMANDS. VSS, LEFT SUBCLAVIAN CVL WITH FLUIDS INFUSING, SEE FLOW SHEET. MAGNOLIA DRAIN X2 TO BILAT SIDES ABDOMEN. VALDEZ CATHETER FREE OF KINKS TO GRAVITY WITH URINE RETURN. SHIFT ASSESSMENT COMPLETED, SEE FLOW SHEET. ROOM FREE OF CLUTTER, CALL LIGHT IN REACH, BED ALARM ACTIVE, WILL CONTINUE TO MONITOR PT.
--- NOTE | 2017-07-19 09:26 | NUR ---
NUTRITION F/U CHART REVIEWED. PT REMAINS ON VENT. NO CURRENT NUTRITION SUPPORT. SPOKE WITH MD. VITAL 1.0 TO START AT 20 CC/HR. RECOMMEND GOAL RATE 65 CC/HR AT GOAL RATE WILL PROVIDE 1560 KCAL, [address] GM PR[address] DAY. RD FOLLOWING
--- NOTE | 2017-07-19 09:30 | NUR ---
DR. PURCELL AT THE BEDSIDE, ALL QUESTIONS ANSWERED, VSS, WILL CONTINUE TO MONITOR PT.
--- NOTE | 2017-07-19 10:45 | NUR ---
* Is the patient Alert and Oriented? Yes 0 * How many steps to enter\exit or inside your home? 2 0 * PCP Dr. Chang in 0 * Pharmacy [facility] in [place] 0 * Preadmission Environment Home with Family 0 * ADLs Independent 0 * Equipment Cane Nebulizer Oxygen 0 * List name and contact numbers for known caregivers / representatives who currently or will assist patient after discharge: Spouse - Gui [phone] 0 * Can the patient safely return to the preadmission environment? Yes 0 * Has this patient been hospitalized within the prior 30 days at any hospital? Yes Patient Name: MARCELO PATTERSON Admission Status: ER Accout number: [id number] Admission Date: 07-13-2017 : 1955 Admission Diagnosis:PERFORATION OF INTESTINE (NONTRAUMATIC) Attending: CALLUM PURCELL Current LOS: 6 Primary Insurance: MEDICARE A & B Discharge Planning Comments: CM spoke with spouse, Gui, via telephone. He reports patient lives at home with him. He reports she is independent with all ADL's but uses a cane PRN. She wears home O2 and uses a nebulizer. She does not have home health services. Patient may benefit from inpatient rehab or home health at discharge. CM will follow & assist as needed. Quality Control Microbiology Supervisor: Ramya Mario
--- NOTE | 2017-07-19 11:00 | NUR ---
REPOSITIONED PT, PROPPED WITH PILLOWS, VSS, REASSESSMENT COMPLETED, SEE FLOW SHEET. ROOM FREE OF CLUTTER, CALL LIGHT IN REACH, WILL CONTINUE TO ONITOR PT.
--- NOTE | 2017-07-19 13:00 | NUR ---
SPOKE WITH PTS FELIPE PATTERSON FOR VERBAL CONSENT FOR DR. GARCÍA TO DO BRONCHOSCOPY ON PT, ELLEN MCDANIEL RN WITNESS.
--- NOTE | 2017-07-19 13:30 | NUR ---
DR. GARCÍA AT THE BEDSIDE FOR BRONCHOSCOPY
--- NOTE | 2017-07-19 15:00 | NUR ---
REPOSITIONED PT, PROPPED WITH PILLOWS, VSS, REASSESSMENT COMPLETED, SEE FLOW SHEET. ROOM FREE OF CLUTTER, CALL LIGHT IN REACH, WILL CONTINUE TO MONITOR PT.
--- NOTE | 2017-07-19 17:00 | NUR ---
REPOSITIONED PT, PROPPED WITH PILLOWS, VSS, WILL CONTINUE TO MONITOR PT.
--- NOTE | 2017-07-19 19:00 | NUR ---
REPORT RECIEVED, SHIFT ASSESSMENT COMPLETE, PT IS SEDATED ON VENT, FOLLOWS COMMANDS, ON 40% FIO2 WITH 95% O2 SAT, CRACKLES HEARD IN B/L UPPER LOBES, DIMINISHED IN B/L LOWER LOBES, S1S2, CM-NSR, PATENT LEFT SC CVL...SEE IV FLOW SHEET...PATENT NGT WITH VITAL 1.0 INFUSING VIA PUMP, DRSG TO MIDLINE ABDOMINAL INCISION IS CDI, B/L MAGNOLIA DRAINS, DRSGS CDI, PATENT F/C WITH ANI UOP, ALL PPP, VSS, WILL CON'T TO MONITOR
--- NOTE | 2017-07-19 21:15 | NUR ---
NO VISITORS AT THIS TIME, REPOSITIONED FOR COMFORT, ORAL CARE PROVIDED,
--- NOTE | 2017-07-19 23:30 | NUR ---
REASSESSMENT COMPLETE, NO CHANGES NOTED, PT REPOSITIONED FOR COMFORT, ORAL CARE PROVIDED,
[2017-07-20] VITALS (25 sets, daily range): BP systolic 92–135; BP diastolic 50–87
--- NOTE | 2017-07-20 01:04 | NUR ---
REPOSITIONED FOR COMFORT, ORAL CARE PROVIDED,
--- NOTE | 2017-07-20 03:30 | NUR ---
COMPLETE BATH AND LINEN CHANGE, PT TOLERATED WELL
[2017-07-20 04:28] LABS: BASOPHILS 0.5 % (0-2); EOSINOPHILS 0 % (0-7); HEMATOCRIT 33.7 % (36.0-48.0); HEMOGLOBIN 10.6 g/dL (12-16); IMMATURE GRANULOCYTES 15.4 % (0-5); LYMPHOCYTES 4.7 % (15-50); MCHC 31.5 g/dL (31.0-37.0); MCV 92.1 fL (80.0-100.0); MEAN PLATELET VOLUME 10.9 fL (7.4-10.4); MONOCYTES 4.1 % (2-11); NEUTROPHILS 75.3 % (40-80); RBC 3.66 10x6/uL (4.00-5.40); RDW 16.9 % (11.5-14.5); WBC 10.1 10x3/uL (4.8-10.8)
[2017-07-20 04:32] LABS: PLATELET COUNT 225 10x3/uL (130-400)
[2017-07-20 04:48] LABS: ALBUMIN 1.3 g/dL (3.4-5.0); ALKALINE PHOSPHATASE 97 U/L (46-116); ALT (SGPT) 5 U/L (10-68); CALC OSMOLALITY 300 mosm/kg (275-300); CALCIUM 8.1 mg/dL (8.5-10.1); CARBON DIOXIDE 32.9 mmol/L (21.0-32.0); CHLORIDE - SERUM 109 mmol/L (98-107); CREATININE - SERUM 0.7 mg/dL (0.6-1.3); GLUCOSE 165 mg/dL (74-106); PHOSPHOROUS 2.4 mg/dL (2.5-4.9); POTASSIUM - SERUM 3.4 mmol/L (3.5-5.1); PROTEIN - SERUM 4.2 g/dL (6.4-8.2); SODIUM 148 mmol/L (136-145); eGFR NON AFRICAN AMERICAN 89 mL/min (90-120)
[2017-07-20 04:55] LABS: UREA NITROGEN 21 mg/dL (7-18)
--- NOTE | 2017-07-20 05:00 | NUR ---
REPOSITIONED FOR COMFORT, ORAL CARE PROVIDED
--- NOTE | 2017-07-20 07:00 | NUR ---
PT REPORT REC'D, PT CARE ASSUMED. PT SEDATED ON VENT. LEFT SUBCLAVIAN CVL WITH FLUIDS INFUSING, SEE FLOW SHEET, DRESSING CDI. MAGNOLIA DRAIN X2 TO ABDOMEN, COMPRESSED WITH DRAINAGE. COLOSTOMY NOTED. VALDEZ CATHETER FREE OF KINKS TO GRAVITY, WITH URINE RETURN. SHIFT ASSESSMENT COMPLETED, SEE FLOW SHEET. ROOM FREE OF CLUTTER, CALL LIGHT IN REACH, WILL CONTINUE TO MONITOR PT.
--- NOTE | 2017-07-20 11:06 | NUR ---
DR. PURCELL AT THE BEDSIDE, ALL QUESTIONS ANSSWERED, VSS, WILL CONTINUE TO MONITOR PT.
--- NOTE | 2017-07-20 11:40 | NUR ---
INCREASED TF FROM 20CC/HR TO 30CC/HR PER ORDERS. WILL CONTINUE TO MONITOR PT.
--- NOTE | 2017-07-20 17:00 | NUR ---
PT FAMILY AT THE BEDSIDE, ALL QUESTIONS ANSWERED, THOUGHT PT MAY HAVE TEMPERATURE, CHECKED ORAL TEMPERATURE PER PT FAMILY REQUEST, 99.6. WILL CONTINUE TO MONITOR PT.
--- NOTE | 2017-07-20 19:00 | NUR ---
REPORT RECEIVED. SHIFT ASSESSMENT COMPLETED PER FLOW SHEET. PT SEDATED ON VENT. NGT PLACEMENT VERIFIED VIA AUSCULATATION. NGT FEEDINGS OF VITAL 1.0 AT 30 MLS/HR, 0 RESIDUALS OBTAINED, RATE INCREASED TO 40 MLS/HR. MID ABDOMENAL INCISION NOTED, REE IN PLACE. MAGNOLIA DRAINS TO RT AND LT ABDOMEN. COLOSTOMY TO LT ABDOMEN, BROWN STOOL NOTED. VALDEZ CATHETER TO GRAVITY SECURED. SEE FLOW SHEET FOR COMPLETE ASSESSMENT. WILL CONTINUE TO MONITOR.
--- NOTE | 2017-07-20 21:00 | NUR ---
SEDATED ON VENT. NO DISTRESS NOTED. ORAL CARE PROVIDED. REPOSITIONED FOR COMFORT. WILL CONTINUE TO MONITOR.
[2017-07-20 21:06] LABS: AFB SPECIMEN PROCESSING Concentration (())
--- NOTE | 2017-07-20 23:15 | NUR ---
REASSESSMENT COMPLETED PER FLOW SHEET, SEE FOR DETAILS. PT SEDATED ON VENT, OPENS EYES SPONTANEOUSLY. APPEARS CALM. NO DISTRESS NOTED. ORAL CARE PROVIDED. REPOSITIONED FOR COMFORT. WILL CONTINUE TO MONITOR.
[2017-07-21] VITALS (24 sets, daily range): BP systolic 98–134; BP diastolic 51–91
--- NOTE | 2017-07-21 01:00 | NUR ---
PT SEDATED ON VENT, NO DISTESS NOTED AT THIS TIME. ORAL CARE PROVIDED. REPOSITIONED FOR COMFORT. WILL CONTINUE TO MONITOR.
--- NOTE | 2017-07-21 03:20 | NUR ---
REASSESSMENT COMPLETED PER FLOW SHEET, SEE FOR DETAILS. NO ACUTE CHANGES NOTED. PT SEDATED ON VENT. NO DISTRESS. WILL CONTINUE TO MONITOR.
[2017-07-21 05:00] LABS: BASOPHILS 0.5 % (0-2); EOSINOPHILS 0.2 % (0-7); HEMATOCRIT 35.3 % (36.0-48.0); HEMOGLOBIN 10.9 g/dL (12-16); IMMATURE GRANULOCYTES 10.5 % (0-5); MCH 28.6 pg (26.0-34.0); MCHC 30.9 g/dL (31.0-37.0); MCV 92.7 fL (80.0-100.0); MEAN PLATELET VOLUME 10.2 fL (7.4-10.4); NEUTROPHILS 78.8 % (40-80); RBC 3.81 10x6/uL (4.00-5.40); RDW 16.9 % (11.5-14.5)
--- NOTE | 2017-07-21 05:00 | NUR ---
SEDATED ON VENT. VSS. NO DISTRESS NOTED. WILL CONTINUE TO MONITOR.
[2017-07-21 05:02] LABS: PLATELET COUNT 330 10x3/uL (130-400); WBC 16.7 10x3/uL (4.8-10.8)
[2017-07-21 05:16] LABS: CALC OSMOLALITY 296 mosm/kg (275-300); CALCIUM 8.1 mg/dL (8.5-10.1); CARBON DIOXIDE 33.1 mmol/L (21.0-32.0); CHLORIDE - SERUM 109 mmol/L (98-107); CREATININE - SERUM 0.7 mg/dL (0.6-1.3); GLUCOSE 196 mg/dL (74-106); PHOSPHOROUS 1.8 mg/dL (2.5-4.9); SODIUM 146 mmol/L (136-145); UREA NITROGEN 16 mg/dL (7-18); eGFR NON AFRICAN AMERICAN 89 mL/min (90-120)
--- NOTE | 2017-07-21 09:56 | NUR ---
NUTRITION F/U CHART REVIEWED. PT WITH FAMILY AT BEDSIDE REMAINS ON VENT. VITAL 1.0 NOW AT 50 CC/HR WITH GOAL RATE 65 CC/HR. RD FOLLOWING
--- NOTE | 2017-07-21 10:51 | NUR ---
DR MARCELO HERE, FAMILY AT . DR MARCELO DISCUSSED POC WITH FAMILY. SIMV DECREASED TO 10. ALL SEDATION TURNED OFF.
[2017-07-21 12:11] LABS: FUNGUS STAIN Final report (())
--- NOTE | 2017-07-21 15:01 | NUR ---
CPAP TRIALS FOR 3 HRS AND PT DID WELL. SPO2 STAY IN UPPER 90'S. RESP RATE WNL. VSS. PLACED BACK ON SIMV AND LIGHT SEDATION FOR REST.
--- NOTE | 2017-07-21 19:00 | NUR ---
PT SEDATED AND ON THE VENT. FOLLOWS COMMANDS, CALM. LUNG SOUNDS CRACKLES/DIMINISHED. FIO2 40% SPO2 97. S1S2 HEARD, PERIPHERAL PULSES PRESENT, NSR ON MONITOR. BOWEL SOUNDS HYPOACTIVE IN ALL QUADRANTS. MIDLINE ABD INCISION WITH DRSG CDI, B/L MAGNOLIA DRAINS INTACT. VALDEZ CATH INTACT. PT REPOSITIONED WITH BONY PROMINENCES BRIDGED. ORAL CARE ADM. VSS, NO S/S OF PAIN. ROOM VISIBLE FROM NURSES STATION. CPOC.
--- NOTE | 2017-07-21 20:00 | NUR ---
NO VISITORS AT THIS TIME.
--- NOTE | 2017-07-21 23:00 | NUR ---
REASSESSMENT COMPLETE, SEE FLOWSHEET FOR ALL FINDINGS. PT REPOSITIONED WITH A PARTIAL LINEN CHANGE. ORAL CARE ADM. PT DENIES PAIN, FOLLOWS COMMANDS. VSS, S/S OF ACUTE DISTRESS NOTED. ROOM VISIBLE FROM NURSES STATION. CPOC.
[2017-07-22] VITALS (26 sets, daily range): BP systolic 96–156; BP diastolic 49–115
--- NOTE | 2017-07-22 01:10 | NUR ---
PT REPOSITIONED WITH PROMINENCES BRIDGED. NO CHANGES AT THIS TIME. NO S/S OF PAIN OR DISTRESS. PT RESTING COMFORTABLY AT THIS TIME. VSS. ROOM VISIBLE FROM NURSES STATION. CPOC.
[2017-07-22 04:51] LABS: BASOPHILS 0.3 % (0-2); EOSINOPHILS 0.1 % (0-7); HEMOGLOBIN 10.9 g/dL (12-16); IMMATURE GRANULOCYTES 7.8 % (0-5); LYMPHOCYTES 3.1 % (15-50); MCH 28.4 pg (26.0-34.0); MCHC 30.3 g/dL (31.0-37.0); MCV 93.8 fL (80.0-100.0); MONOCYTES 6.4 % (2-11); NEUTROPHILS 82.3 % (40-80); PLATELET COUNT 380 10x3/uL (130-400); RBC 3.84 10x6/uL (4.00-5.40); RDW 17.2 % (11.5-14.5); WBC 16.5 10x3/uL (4.8-10.8)
[2017-07-22 05:09] LABS: ALBUMIN 1.3 g/dL (3.4-5.0); ALKALINE PHOSPHATASE 185 U/L (46-116); BILIRUBIN - TOTAL 0.38 mg/dL (0.2-1.3); CARBON DIOXIDE 33.8 mmol/L (21.0-32.0); CHLORIDE - SERUM 109 mmol/L (98-107); CREATININE - SERUM 0.6 mg/dL (0.6-1.3); MAGNESIUM - SERUM 2.1 mg/dL (1.8-2.4); PROTEIN - SERUM 3.9 g/dL (6.4-8.2); SODIUM 145 mmol/L (136-145); UREA NITROGEN 13 mg/dL (7-18); eGFR NON AFRICAN AMERICAN > 90 mL/min (90-120)
[2017-07-22 05:21] LABS: ALT (SGPT) 4 U/L (10-68); CALC OSMOLALITY 296 mosm/kg (275-300); GLUCOSE 247 mg/dL (74-106); POTASSIUM - SERUM 3.5 mmol/L (3.5-5.1)
--- NOTE | 2017-07-22 06:40 | NUR ---
PT REPOSITIONED WITH PROMINENCES BRIDGED. ORAL CARE ADM. VSS, NO S/S OF PAIN AT THIS TIME. SEDATION VACATION, CALM/COOPERATIVE.
--- NOTE | 2017-07-22 07:30 | NUR ---
PT RESTING SUPINE IN BED - AA&O X 4 - PT C/O SLIGHT PAIN BUT REFUSED OFFER TO RESTART IV PAIN MEDICATION - VSS
--- NOTE | 2017-07-22 08:15 | NUR ---
ASSESSMENT COMPLETE - PT ON CPAP - RT AT BEDSIDE FOR ASSESSMENT - FAMILY AT BEDSIDE VISITING - ANSWERED ALL QUESITONS - PT RESTING - COOL TO TOUCH BUT NO DECLINED TO BE COVERED WITH SHEET - CPOC
--- NOTE | 2017-07-22 09:00 | NUR ---
DR. PURCELL AT BEDSIDE - TALKED WITH FAMILY AND PT R/T PLAN OF CARE -
--- NOTE | 2017-07-22 09:55 | NUR ---
MEDICATIONS GIVEN - PT CONTINUES TO BE RESTING IN BED - VSS - CPOC
--- NOTE | 2017-07-22 10:00 | NUR ---
CALLED PHARMACY TO REQUEST VANCOMYCIN AND BACTRIM RX - WAS INFORMED TECH WOULD BRING RX TO UNIT - AWAITING DELIVERY
--- NOTE | 2017-07-22 10:38 | NUR ---
ATTEMPTED TO GIVE PT BACTRIM PO - PT SHOOK HEAD NO - ASKED IF SHE IS ALLERGIC TO SULFA MEDICATION - PT NODDED CONFIRMED - PT DECLINED TAKING THIS RX - WILL NOTIFY
--- NOTE | 2017-07-22 10:45 | NUR ---
DR. GASPAR AT BEDSIDE FOR ASSESSMENT - ORDERS TO RT FOR F/U ABG - SEE RT FLOW SHEET
--- NOTE | 2017-07-22 11:30 | NUR ---
DR. MARCELO ORDERED 40MG IV PUSH LASIX - CHANGE LR RATE DOWN TO 20ML/HR (KVO). CPOC
--- NOTE | 2017-07-22 12:40 | NUR ---
RESP THERAPIST AT [facility] TO REMOVE OET - PT TOLERATED PROCEDURE WELL. PT RESTING - ORAL CARE GIVEN - CPOC -
--- NOTE | 2017-07-22 13:50 | NUR ---
ICE CHIPS GIVEN TO PT - PT C/O OF NOT ABLE TO LIFT BILAT UPPER EXT. ROM COMPLETED WITH EACH ROOM VISIT - INSTRUCTED PT TO MAKE FISTS AND RAISE ARMS TOLERATED - PT NODDED AGREEMENT - CPOC
--- NOTE | 2017-07-22 14:42 | NUR ---
COMPLETE BED BATH, WASHED HAIR, CHANGED BED CLOTHES AND LINENS - PT RESTING - GAVE ICE CHIPS FOR COMFORT. HOB 30 DEGREES - VSS - CPOC
--- NOTE | 2017-07-22 15:56 | NUR ---
i&O COMPLETED - PT USING HAND HELD SUCTION AD SARTHAK - VSS - NO C/O OF ACUTE DISTRSS - CPOC
--- NOTE | 2017-07-22 16:30 | NUR ---
CALLED DR. PURCELL CELL PHONE - INFORMED OF PAIN 02/04 - TOV HYDROMORPHONE WINDOWS SYSTEMS ADMIN - SEE MAR - CPOC
--- NOTE | 2017-07-22 18:12 | NUR ---
MEDICATIONS GIVEN - PT USING PROVIDER RELATIONS REP WITH MINIMAL ASSISTANCE - CONTINUE ENCOURAGING PT TO OPEN AND CLOSE HANDS - PT ABLE TO CORRECTLY DEMONSTRATE. CPOC
--- NOTE | 2017-07-22 19:00 | NUR ---
PT AOX4, CALM/COOPERATIVE. SHALLOW RESPIRATIONS, LUNG SOUNDS CRACKLES/DIMINISHED. PRODUCTIVE COUGH PRESENT, WHITE SPUTUMN. IDEPENDENT ORAL SUCTIONING. 02 @ 5L VIA NC, SPO2 96. S1S2 HEARD, PERIPHERAL PULSES PRESENT. BOWEL SOUNDS ACTIVE, COLOSTOMY INTACT WITH NO S/S OF IRRITATION. B/L MAGNOLIA DRAINS INTACT WITH PURULENT DRAINAGE. VALDEZ CATH INTACT. NGT INTACT WITH VITAL INFUSING @ 65ML/HR. REPOSITIONED FOR COMFORT. AMMONIA PRINT OPERATOR TEACHING PROVIDED. DENIES FURTHER NEEDS AT THIS TIME. CALL LIGHT WITHIN PT REACH. ROOM VISIBLE FROM NURSES STATION. CPOC.
--- NOTE | 2017-07-22 20:00 | NUR ---
NO VISITORS AT THIS TIME.
--- NOTE | 2017-07-22 20:41 | NUR ---
BACTRIM NOT GIVEN, PT STATES SHE IS ALLERGIC AND MD NOTES STATE WILL D/C.
[2017-07-23] VITALS (24 sets, daily range): BP systolic 101–137; BP diastolic 54–93
--- NOTE | 2017-07-23 00:33 | NUR ---
PT REPOSITIONED IN BED. COUGH/DB ENCOURAGED, COUGH WEAK. CLEAR SPUTUM PRESENT. PARTIAL LINEN CHANGE. VSS. CPOC.
--- NOTE | 2017-07-23 03:00 | NUR ---
REASSESSMENT COMPLETE, SEE FLOWSHEET FOR ALL FINDINGS. PT REPOSITIONED FOR COMFORT. ORAL CARE ADM. COUGH/DB WITH GOOD EFFORT, GENERALIZED WEAKNESS PRESENT. MAGNOLIA RUBENSG CHANGED X2. VSS. CALL LIGHT WITHIN PT REACH. CPOC.
[2017-07-23 04:49] LABS: BASOPHILS 0.2 % (0-2); EOSINOPHILS 0.1 % (0-7); HEMATOCRIT 38.8 % (36.0-48.0); HEMOGLOBIN 11.8 g/dL (12-16); LYMPHOCYTES 6.7 % (15-50); MCH 28.7 pg (26.0-34.0); MCHC 30.4 g/dL (31.0-37.0); MCV 94.4 fL (80.0-100.0); MONOCYTES 4.4 % (2-11); NEUTROPHILS 83.6 % (40-80); PLATELET COUNT 476 10x3/uL (130-400); RBC 4.11 10x6/uL (4.00-5.40); RDW 17.2 % (11.5-14.5); WBC 22.1 10x3/uL (4.8-10.8)
[2017-07-23 05:13] LABS: ALBUMIN 1.4 g/dL (3.4-5.0); ALKALINE PHOSPHATASE 247 U/L (46-116); BILIRUBIN - TOTAL 0.47 mg/dL (0.2-1.3); CALCIUM 8.2 mg/dL (8.5-10.1); CARBON DIOXIDE 35.5 mmol/L (21.0-32.0); CHLORIDE - SERUM 109 mmol/L (98-107); CREATININE - SERUM 0.5 mg/dL (0.6-1.3); MAGNESIUM - SERUM 1.9 mg/dL (1.8-2.4); PROTEIN - SERUM 4.7 g/dL (6.4-8.2); SODIUM 147 mmol/L (136-145); UREA NITROGEN 12 mg/dL (7-18); eGFR NON AFRICAN AMERICAN > 90 mL/min (90-120)
[2017-07-23 05:26] LABS: ALT (SGPT) 7 U/L (10-68); CALC OSMOLALITY 296 mosm/kg (275-300); GLUCOSE 194 mg/dL (74-106); POTASSIUM - SERUM 2.6 mmol/L (3.5-5.1)
--- NOTE | 2017-07-23 06:16 | NUR ---
K+ 2.6, E[facility]ROLYTE PROTOCOL [facility]
--- NOTE | 2017-07-23 19:00 | NUR ---
Received patient resting in bed with eyes open watching TV, assessment completed per flowsheet. Patient AO x4, calm and cooperative. Eyes PERRLA @ 4mm with brisk response, sclera is slightly reddened and clear. NGT R nare secured, Jevity 1.0 @ 65ml/hr. S1/S2 noted Sinus Tach with occaisional PVC noted on telemetry with HR 106, rhythmic and regular. Breathing is even and unlabored on 4L via NC with O2 sat 95%, Crackles noted bilateral upper and mid with diminished lower. Weak non-productinve cough noted, patient encouraged to to cough. Abdomen is flat and tender with bowel sounds hypoactive x4, Colostomy bag noted. MAGNOLIA drain x2 Bilateral lower abdomen with purulent drainage noted, compressed with dressing CDI. Midline abdominal incision dressing CDI, no bleeding/drainage noted. Xavier secured in place, clear yellow urine noted. Full ROM with weakness noted all extremities, all pulses palpable with cap refill < 3 sec. L subclavian triple lumen noted with dressing CDI, LR @ 20ml/hr / Dilaudid CONTINUOUS PROCESS MACHINE OPERATOR with 19.2ml remainaing tbd. Patient denies pain or other needs at this time, all VSS and will continue to monitor.
--- NOTE | 2017-07-23 21:00 | NUR ---
No visitors at this time, HS meds held due to allergy with Dr Pastor to D/C per notes. 2100 K+ collected, will treat per protocol when resulted. Repositioned for comfort, denies further needs at this time. All VSS and will continue to monitor.
--- NOTE | 2017-07-23 22:55 | NUR ---
Reassessment completed per flowsheet, patient resting in bed with eyes closed. S1/S2 noted Sinus Tach with occaisional PVC on telemetry with HR 103. Breathing is slightly shallow on 4L via NC with O2 sat 97%, crackles noted bilateral upper and mid with diminished lower. Abdomen is flat and soft, tender. Ostomy site tissue red and granulated with no bleeding/drainage noted. Midline abdominal incision dressing CDI, no drainage/bleeding noted. MAGNOLIA drain x2 noted bilateral lower abdomen, purulent drainage noted. Patient states pain 2/10 incisional, LEARNING SUPPORT AIDE in use for pain control. Repositioned for comfort, denies further needs at this time. All VSS and will continue to monitor.
[2017-07-24] VITALS (31 sets, daily range): BP systolic 90–139; BP diastolic 53–89
--- NOTE | 2017-07-24 01:00 | NUR ---
Patioent resting in bed with eyes closed, breathing is shallow on 4L via NC with O2 sat 94%. Repositioned for comfort, denies further needs at this time. All VSS and will continue to monitor.
--- NOTE | 2017-07-24 02:55 | NUR ---
Reassessment completed per flowsheet, patient resting in bed with eyes closed breathing through mouth. Patient O2 sat decreased to 87%, patient awakened and encouraged to breath through nose. O2 sat increased to 96%, patient returned to resting. S1/S2 noted Sinus Tach with PVC on telemetry with HR 104. Breathing is shallow on 4L via NC, crackles noted bilateral upper and mid with diminished lower. Abdomen is flat and soft with bowel sounds hypoactive x4, tender to palpation. Abdominal midline dressing CDI with gayla intact, MAGNOLIA drain x2 with purulent drainage noted. Ostomy site tissue red and granulated, bag secured. Patient repostioned for comfort, denies further needs at this time. All VSS and will continue to monitor.
[2017-07-24 04:36] LABS: BASOPHILS 0.2 % (0-2); EOSINOPHILS 0 % (0-7); HEMATOCRIT 44.6 % (36.0-48.0); LYMPHOCYTES 5.9 % (15-50); MCH 28.6 pg (26.0-34.0); MCHC 29.1 g/dL (31.0-37.0); MCV 98.2 fL (80.0-100.0); MEAN PLATELET VOLUME 10.6 fL (7.4-10.4); MONOCYTES 3.9 % (2-11); PLATELET COUNT 597 10x3/uL (130-400); RBC 4.54 10x6/uL (4.00-5.40); RDW 17.6 % (11.5-14.5); WBC 24.5 10x3/uL (4.8-10.8)
--- NOTE | 2017-07-24 05:00 | NUR ---
Patient laying in bed with eyes closed, breathing is shallow and slightly labored with O2 sat 93% on 4L via NC. Patient pallor is pale, slightly diaphoretic. Patient opens eyes and tracks, no verbal response. HR elevated to 140 with PVC on telemetry, ABG to be collected by respiratory.
[2017-07-24 05:03] LABS: ALBUMIN 1.5 g/dL (3.4-5.0); ALKALINE PHOSPHATASE 336 U/L (46-116); BILIRUBIN - TOTAL 0.28 mg/dL (0.2-1.3); CALCIUM 8.3 mg/dL (8.5-10.1); CARBON DIOXIDE 37.5 mmol/L (21.0-32.0); CHLORIDE - SERUM 107 mmol/L (98-107); CREATININE - SERUM 0.6 mg/dL (0.6-1.3); MAGNESIUM - SERUM 2.1 mg/dL (1.8-2.4); POTASSIUM - SERUM 3.8 mmol/L (3.5-5.1); PROTEIN - SERUM 5.2 g/dL (6.4-8.2); SODIUM 148 mmol/L (136-145); UREA NITROGEN 12 mg/dL (7-18); eGFR NON AFRICAN AMERICAN > 90 mL/min (90-120)
[2017-07-24 05:08] LABS: ALT (SGPT) 11 U/L (10-68); CALC OSMOLALITY 302 mosm/kg (275-300); GLUCOSE 268 mg/dL (74-106)
--- NOTE | 2017-07-24 05:20 | NUR ---
ABG resulted, critical values noted. Patient placed on BiPAP, pallor improving with patient appearing to be more alert. Dr Llamas paged regarding condition, awaiting call back.
--- NOTE | 2017-07-24 05:30 | NUR ---
Patient pallor pale with shallow labored breathing, skin cool to touch. Patient diaphoretic, opens eyes and tracks with no verbal response. Respiratory notified to collect ABG, repositioned in bed.
--- NOTE | 2017-07-24 05:40 | NUR ---
Dr dobbins called, informed of patient condition with new orders received. ABG to be recollected 1 hour after placed on BiPAP, Ammonia level ordered. BiPAP settings Ipap-20 Epap-8 R-16 100% O2.
--- NOTE | 2017-07-24 05:40 | NUR ---
Patient pallor pale and slightly diaphoretic, patient noted to be in apparent respiratory distress. AMBU bag to assist breathing with bellows charger assembler notified, Respiratory to collect ABG.
--- NOTE | 2017-07-24 05:50 | NUR ---
ABG Resulted with critical values, patient placed on BiPAP. Dr dobbins paged to notify of change in condition, awaiting call back.
--- NOTE | 2017-07-24 05:55 | NUR ---
Dr Llamas returned call, new orders received. ABG to be collected 1 hour after placed on BiPAP, Ammonia to be collected. BiPAP settings Ipap-20 Epap-8 R-16 100% O2. Patient pallor improved on BiPAP, appears more alert but no verbal response. Will continue to monitor.
--- NOTE | 2017-07-24 07:58 | NUR ---
0800- REDRAW ABG'S DONE ORDERED. OVERALL IMPROVING WITH BIPAP AYT 100%. DECREASSED O2 ON BIPAP TO 80% FROM 100%. RESP 32,SPO2 94%. HR 90 BPM WITH FREQ PVC'S AND PAC'S. NSR OTHERWISE.
--- NOTE | 2017-07-24 08:18 | NUR ---
DR MARCELO PHONED AND RESULTS OF ABG'S GIVEN. ORDERED TO INTUBATE. CALLED PT'S . NO ANSWER. CALLED ANESTHESIA AND RT.
--- NOTE | 2017-07-24 08:53 | NUR ---
0840- PT INTUBATED BY ANESTHESIA AND VENT SETTINGS BY RT. AC 16,100% FI02, 550-TV AND 5 PEEP. TF ON HOLD AND DR PURCELL PAGED TO NOTIFY OF RECENT EVENTS. DIPROVAN STARTED AT 10MCG/KG/MIN. BUE WRIST RESTRAINTS APPLIED. VSS, PT NODS TO ANSWER QUESTIONS.
--- NOTE | 2017-07-24 10:42 | NUR ---
NUTRITION F/U CHART REVIEWED. SPOKE WITH NURSING. TUBE FEEDS CURRENTLY OFF, PT REINTUBATED. VITAL 1.0 TUBE FEEDS TO RESUME @ 35 CC/HR. IF TOLERATED INCREASE TO PREVIOUS GOAL RATE 65 CC/HR. RD FOLLOWING
--- NOTE | 2017-07-24 10:45 | NUR ---
PT IS HYPOTENSIVE AT 67/49 AND W/O DIPROVAN STILL HYPOTENSIVE AT 82/[address] MARCELO HERE. LEVOPHED STARTED AT 2MCG/MIN. NS BOLUS 250CC STARTED WELL.
--- NOTE | 2017-07-24 10:55 | NUR ---
Vancomycin trough 15.9, continue current dose and frequency.
--- NOTE | 2017-07-24 11:03 | NUR ---
DR CORTES PAGED AND GAVE UPDATE ON RECENT EVENTS. DR CORTES ROUNDING AFTER AND ORDERS CT ABD. DSNG REMOVED BY DR CORTES AND ORDERED TO REPLACE DRY DSNG TO ABD OPEN WND AT DISTAL END OF INCISION. WND CARE COMPLETE ORDERED.
--- NOTE | 2017-07-24 11:45 | NUR ---
ORAL CONTRAST GIVEN PER NGT. PLACEMENT OF NGT VERIFIED BY AUSCULTATION PRIOR TO GIVING CONTRAST.
[2017-07-24 15:35] LABS: APTT 25.5 SECONDS (22.8-39.4); INR 1.01 (0.85-1.17); PROTIME 13.1 SECONDS (11.6-15.0)
--- NOTE | 2017-07-24 16:24 | NUR ---
PT BATHED AND AIR BED MATTRESS APPLIED. PT FLORENCE WELL. COLOSTOMY WAFER TASKEN OFF AND A NEW WAFER AND BAG APPLIED. REPORTED TO DR CORTES RE: STOMA DETACHING FROM EXIT SITE.
--- NOTE | 2017-07-24 18:30 | NUR ---
DR CORTES HERE AT BS. SHOWED STOMA TO DR CORTES. DR CORTES ATTEMPTS TO REDUCE STOMA.
--- NOTE | 2017-07-24 19:00 | NUR ---
Received patient resting in bed on vent, assessment completed per flowsheet. Patient opens eyes spontaneously and follows commands. Eyes PERRLA @ 4mm with brisk response, sclera is slightly reddened. NGT R nare to LIWS, dark yellow liquid noted. ETT 7.5 @ 23cm secured. S1/S2 noted NSR on telemetry with HR 67, rythmic and regular. Crackles noted bilateral upper and mid with diminished lower, Vent settings A/C R-16 V-550 60% P-5. Abdomen is slightly distended with bowel sounds hypoactive x4, tender. Bilateral lower abdomen MAGNOLIA drain compressed, purulent white liquid noted. Midline abdominal incision dressing CDI, no drainage noted. Colostomy bag secured with wafer intact, tissue appears red and granulated around stoma. Xavier secured in place, clear yellow urine noted. Passive ROM all extremities with moderate weakness noted, upper pulses palpable with lower pulses weak. Skin warm/dry, cap refill < 3 sec. L subclavian CVL dressing CDI, patent with fluids infusing. Repositioned for comfort, oral care suctioning provided. No further needs at this time, all VSS and will continue to monitor.
--- NOTE | 2017-07-24 21:00 | NUR ---
Patient sedated in bed on vent with eyes closed. Oral care/suctioning provided, patient repositioned for comfort. Vent settings unchanged from previous, O2 sat 94%. Patient opens eyes to voice, returns to sleep easily. No further needs at this time, all VSS and will continue to monitor.
--- NOTE | 2017-07-24 23:00 | NUR ---
Reassessment completed per flowsheet, patient sedated in bed on vent with eyes closed. NGT to LIWS, ETT 7.5 @ 23cm secured. S1/S2 noted NSR on telemetry with HR 74, rythmic and regular. Vent settings unchanged from previous assessment, crackles noted bilateral upper and mid with diminished lower. Adbomen is distended with bowel sounds hypoactive x4, tender. Abdominal Midline incision dressing changed, small yellow drainage noted on dressing. Bilateral lower avdomen MAGNOLIA drain x2 compressed, yellow/white purulent drainage noted. Repositioned for comfort, oral care/suctioning provided. No further needs at this time, all VSS and will continue to monitor.
[2017-07-25] VITALS (25 sets, daily range): BP systolic 91–126; BP diastolic 50–84
--- NOTE | 2017-07-25 01:00 | NUR ---
Patient sedated in bed on vent, repositioned for comfort. Oral care/suctioning provided, denies further needs at this time. All VSS and will continue to monitor.
--- NOTE | 2017-07-25 03:00 | NUR ---
Reassessment completed per flowsheet, patient sedated in bed on vent. Opens eyes to voice and weakly follows commands. Eyes PERRLA @ 4mm with brisk response, sclera is slightly reddened. S1/S2 noted NSR on telemetry with HR 96, rythmic and regular. Vent settings unchanged from previous assessment, crackles noted bilateral upper and mid with diminished lower. Midline abdomen dressing changed, wound irrigated per orders. MAGNOLIA drain x2 with white purulent drainage, sutures intact. Repositioned for comfort, oral care/suctioning provided. Denies pain or other needs at this time, all VSS and will continue to monitor.
--- NOTE | 2017-07-25 05:00 | NUR ---
Unable to collect AM lab from CVL, Lab notified to Draw. Lab at bedside to collect sample. Patient repositioned for comfort, oral care/suctioning provided. No further needs at this time, all VSS and will continue to monitor.
--- NOTE | 2017-07-25 05:20 | NUR ---
Lab unable to collect sample, notified by nursing department chairperson that she will send another person to attempt.
[2017-07-25 07:12] LABS: ALBUMIN 1.3 g/dL (3.4-5.0); ALKALINE PHOSPHATASE 239 U/L (46-116); BILIRUBIN - TOTAL 0.37 mg/dL (0.2-1.3); CALCIUM 8.2 mg/dL (8.5-10.1); CARBON DIOXIDE 34.5 mmol/L (21.0-32.0); CHLORIDE - SERUM 109 mmol/L (98-107); GLUCOSE 224 mg/dL (74-106); POTASSIUM - SERUM 3.6 mmol/L (3.5-5.1); PROTEIN - SERUM 4.3 g/dL (6.4-8.2); SODIUM 148 mmol/L (136-145)
[2017-07-25 07:16] LABS: ALT (SGPT) 7 U/L (10-68); CALC OSMOLALITY 303 mosm/kg (275-300); CREATININE - SERUM 0.8 mg/dL (0.6-1.3); UREA NITROGEN 20 mg/dL (7-18); eGFR NON AFRICAN AMERICAN 76 mL/min (90-120)
[2017-07-25 07:23] LABS: BASOPHILS 0.2 % (0-2); EOSINOPHILS 0 % (0-7); HEMATOCRIT 34.1 % (36.0-48.0); HEMOGLOBIN 10.3 g/dL (12-16); IMMATURE GRANULOCYTES 8.6 % (0-5); LYMPHOCYTES 4.5 % (15-50); MCH 28.8 pg (26.0-34.0); MCHC 30.2 g/dL (31.0-37.0); MCV 95.3 fL (80.0-100.0); MEAN PLATELET VOLUME 11.1 fL (7.4-10.4); MONOCYTES 8.4 % (2-11); NEUTROPHILS 78.3 % (40-80); PLATELET COUNT 422 10x3/uL (130-400); RBC 3.58 10x6/uL (4.00-5.40); RDW 17.1 % (11.5-14.5); WBC 23.3 10x3/uL (4.8-10.8)
--- NOTE | 2017-07-25 07:55 | NUR ---
temp 100.0, vent a/c 16, 70% fi02. diprovan at 15mcg/kg/min. levophed off. turned and mouth care done. pt follows command.
--- NOTE | 2017-07-25 09:36 | NUR ---
DR CORTES HERE THIS AM, STAPLE REMOVER USED TO DC DISTAL ABD REE AND OPENED WND UP. WND PACKED WITH DRY 4X4'S. WND CARE NOTIFIED OF WND VAC CONSULT. 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
--- NOTE | 2017-07-25 10:01 | NUR ---
NUTRITION F/U SPOKE WITH NURSING. RECEIVED VERBAL ORDER TO RESUME TRICKLE TUBE FEEDS @ 20 CC/HR. ORDER WRITTEN, NURSING MESSAGE ENTERED. DESTINEY MANDEL
--- NOTE | 2017-07-25 10:22 | NUR ---
NUTRITION F/U PER DR. MARCELO INCREASED TUBE FEED FLUSH TO 75 CC Q 4 HOURS. VITAL 1.0 @ 20 CC/HR PER DR. CORTES. RD FOLLOWING
--- NOTE | 2017-07-25 11:26 | NUR ---
WND VAC PLACED TO ABD BY WND CARE NURSE. PT FLORENCE WELL.
--- NOTE | 2017-07-25 12:18 | NUR ---
Wound vac dressing applied to wound on left lower abdomen. Wound measures 11cm x 3.5cm x 5.2cm. Wound bed is red with seropurulent drainage. 2 pieces of black foam were used. -125mmhg low continuous. Pt tolerated well.
--- NOTE | 2017-07-25 19:00 | NUR ---
Received patient sedated in bed with eyes open, assessment completed per flowsheet. Patient sedated and follows commands, nods appropriately to questions. Eyes PERRLA @ 4mm brisk, sclera clear/reddened. NGT R nare to LIWS, dark brown drainage. ETT 7.5 @ 23cm secured. S1/S2 noted NSR on telemetry with HR 75, rythmic and regular. Vent Settings AC R-16 V-550 60% P-5, exipatory wheeze noted bilateral upper and mid with diminished lower. Abdomen is slightly distended with bowel sounds hypoactive x4, tender. Midline incision to wound vac, dressing CDI. Rlower abdomed MAGNOLIA drain compressed, yellow purulent drainage. Xavier secured, clear yellow urine noted. Limited ROM all extremities with all pulses palpable, slight weakness noted. L subclavian CVL dressing CDI, patent with fluids infusing. Repositioned for comfort, oral care/suctioning provided. Denies pain or other needs at this time, all VSS and will continue to monitor.
--- NOTE | 2017-07-25 21:00 | NUR ---
No visitors at this time, patient laying in bed on vent with eyes closed. No s/s of distress, patient denies pain or other needs at this time. Oral care/suctioning provided, repositioned for comfort. No further needs at this time, all VSS and will continue to monitor.
--- NOTE | 2017-07-25 23:00 | NUR ---
Reassessment completed per flowsheet, patient laying in bed sedated on vent with eyes closed. Patient nods appropriately and follows commands weakly. S1/S2 noted NSR on telemetry with HR 80, rythmic and regular. Vent settings unchanged from previous assessment with O2 sat 97%, expiratory wheeze noted bilateral upper and mid with diminished lower. Midline incision to Wound Vac, R lower abdomen MAGNOLIA drain compressed with purulent drainage. Old MAGNOLIA site L lower abdomen with small yellow drainage, dressing CDI. Limited ROM all extremities with all pulses palpable, cap refill < 3 sec. Oral care/suctioning provided, repostioned for comfort. Denies pain or other needs at this time, all VSS and will conitinue to monitor.
[2017-07-26] VITALS (26 sets, daily range): BP systolic 80–117; BP diastolic 47–70
--- NOTE | 2017-07-26 01:00 | NUR ---
Full bed bath/linen change performed, patient tolerated well. Oral care/suctioning provided, repositioned for comfort. No further needs and will continue to monitor.
--- NOTE | 2017-07-26 02:55 | NUR ---
Reassessment completed per flowsheet, patient laying in bed on vent with eyes closed. Patient nods appropriately and weakly follows commands. Eyes PERRLA @ 4mm with brisk response, sclera is clear/white. NGT R nare to liws, ETT secured. S1/S2 noted NSR on telemetry with HR 82, rythmic and regular. Vent settings unchanged from previous, expiratory wheeze noted bilateral upper and mid with diminished lower. L lower MAGNOLIA drain site dressing changed, site cleaned. R lower MAGNOLIA drain compressed, dressing changed with white purulent drainage noted. Midline incision to wound vac. Repositioned for comfort, oral care/suctioning provided. No further needs at this time, all VSS and will continue to monitor.
[2017-07-26 05:21] LABS: BASOPHILS 0.1 % (0-2); EOSINOPHILS 0.1 % (0-7); HEMATOCRIT 31.7 % (36.0-48.0); HEMOGLOBIN 9.8 g/dL (12-16); IMMATURE GRANULOCYTES 3.9 % (0-5); LYMPHOCYTES 4.7 % (15-50); MCH 28.7 pg (26.0-34.0); MCHC 30.9 g/dL (31.0-37.0); MCV 92.7 fL (80.0-100.0); MEAN PLATELET VOLUME 10.1 fL (7.4-10.4); MONOCYTES 3.1 % (2-11); NEUTROPHILS 88.1 % (40-80); PLATELET COUNT 394 10x3/uL (130-400); RBC 3.42 10x6/uL (4.00-5.40); WBC 25.1 10x3/uL (4.8-10.8)
[2017-07-26 05:42] LABS: ALBUMIN 1.3 g/dL (3.4-5.0); ALKALINE PHOSPHATASE 246 U/L (46-116); ALT (SGPT) 7 U/L (10-68); BILIRUBIN - TOTAL 0.33 mg/dL (0.2-1.3); CALC OSMOLALITY 305 mosm/kg (275-300); CALCIUM 7.6 mg/dL (8.5-10.1); CARBON DIOXIDE 31.8 mmol/L (21.0-32.0); CHLORIDE - SERUM 109 mmol/L (98-107); CREATININE - SERUM 0.7 mg/dL (0.6-1.3); MAGNESIUM - SERUM 1.9 mg/dL (1.8-2.4); POTASSIUM - SERUM 3.3 mmol/L (3.5-5.1); PROTEIN - SERUM 3.7 g/dL (6.4-8.2); SODIUM 146 mmol/L (136-145); UREA NITROGEN 19 mg/dL (7-18); eGFR NON AFRICAN AMERICAN 89 mL/min (90-120)
[2017-07-26 05:43] LABS: GLUCOSE 329 mg/dL (74-106)
--- NOTE | 2017-07-26 07:45 | NUR ---
AWAKE AND OBEYING COMMANDS, HAND ANIMAL NUTRITION CONSULTANT EQUAL. POINTING TO ETT. REPOSITIONED BILATERAL LUNG SOUNDS EQUAL WITH EXP WHEEZING NOTED. INSP WHEEZING ON RIGHT. ABD SOFT WITH HYPOACTIVE BOWEL SOUNDS. PITTING EDEMA NOTED IN LEGS. NO DISTRESS DENIES PAIN. DIPRIVAN AT 30 MCQ/KG/MIN, FENTANYL AT 100 MCG/HOUR.
--- NOTE | 2017-07-26 10:43 | NUR ---
REPOSITIONED ALERT AWAKE OBEYING COMMANDS. VENT CHANGES PER DR. MARCELO. ABD WOUND TO VAC MINIMAL DRAINAGE. COLOSTOMY STOMA LARGE AND DEEP PINK IN COLOR BROWN STOOL IN BAG. RIGHT LOWER ABD MAGNOLIA DRAIN FLUSHED 10CC STERILE NS THICK PALE YELLOW DRAINAGE NOTED. LINE MILKED.BULB COMPRESSED. TRIES TO TALK. ORAL CARE DONE.
--- NOTE | 2017-07-26 11:24 | NUR ---
TUBE FEEDING INCREASED TO [address] CORTES ORDERS. PATIENT AWAKE AND ALERT. DR. CHANEY HERE
--- NOTE | 2017-07-26 13:31 | NUR ---
NAPPING AT INTERVALS. AWAKES EASILY TO VERBAL STIMULI, REPOSITIONED. NO DISTRESS. DENIES PAIN OR SHORTNESS OF BREATH.ORAL CARE DONE.
--- NOTE | 2017-07-26 19:15 | NUR ---
REPORT RECIEVED, SHIFT ASSESSMENT COMPLETE, PT IS SEDATED ON VENT, FOLLOWS COMMANDS, ON 40% FIO2 WITH 98% O2 SAT, CRACKLES HEARD IN B/L UPPER LOBES, DIMINISHED IN B/L LOWER LOBES, S1S2, CM-NSR, PATENT NGT WITH VITAL INFUSING VIA PUMP, PATENT LEFT SC CVL...SEE IV FLOW SHEET..WV TO ABDOMEN WITH PURULENT DRAINAGE, HYPO BS NOTED, ALL PPP, VSS, WILL CON'T TO MONITOR
--- NOTE | 2017-07-26 21:00 | NUR ---
NO VISITORS AT THIS TIME, WILL CON'T TO MONITOR
--- NOTE | 2017-07-26 23:00 | NUR ---
REASSESSMENT COMPELTE, NO CHANGES NOTED, REPOSITIONED FOR COMFORT, ORAL CARE PROVIDED,
[2017-07-27] VITALS (29 sets, daily range): BP systolic 80–133; BP diastolic 53–79; Ht 162.6 cm; Wt 79.1 kg
--- NOTE | 2017-07-27 03:01 | NUR ---
REASSESSMENT COMPLETE, NO CHANGES NOTED, PT RESTING COMFORTABLY AT THIS TIME, REPOSITIONED FOR COMFORT, ORAL CARE PROVIDED
--- NOTE | 2017-07-27 07:00 | NUR ---
REC'D CARE OF PT. SEDATED ON VENT.
[2017-07-27 08:05] LABS: ALBUMIN 1.3 g/dL (3.4-5.0); ALKALINE PHOSPHATASE 256 U/L (46-116); BILIRUBIN - TOTAL 0.28 mg/dL (0.2-1.3); CALCIUM 7.7 mg/dL (8.5-10.1); CARBON DIOXIDE 30.3 mmol/L (21.0-32.0); CHLORIDE - SERUM 107 mmol/L (98-107); CREATININE - SERUM 0.8 mg/dL (0.6-1.3); POTASSIUM - SERUM 3.6 mmol/L (3.5-5.1); PROTEIN - SERUM 4.4 g/dL (6.4-8.2); SODIUM 142 mmol/L (136-145); UREA NITROGEN 17 mg/dL (7-18); eGFR NON AFRICAN AMERICAN 76 mL/min (90-120)
--- NOTE | 2017-07-27 08:05 | NUR ---
INITIAL ASSESSMENT COMPLETED PER FLOW SHEET.
[2017-07-27 08:07] LABS: ALT (SGPT) 9 U/L (10-68); CALC OSMOLALITY 302 mosm/kg (275-300); GLUCOSE 414 mg/dL (74-106)
[2017-07-27 08:22] LABS: BASOPHILS 0.1 % (0-2); EOSINOPHILS 0.1 % (0-7); HEMATOCRIT 32.1 % (36.0-48.0); HEMOGLOBIN 9.9 g/dL (12-16); IMMATURE GRANULOCYTES 3.2 % (0-5); LYMPHOCYTES 3.2 % (15-50); MCH 28.6 pg (26.0-34.0); MCHC 30.8 g/dL (31.0-37.0); MCV 92.8 fL (80.0-100.0); MEAN PLATELET VOLUME 10.7 fL (7.4-10.4); MONOCYTES 3.2 % (2-11); NEUTROPHILS 90.2 % (40-80); PLATELET COUNT 367 10x3/uL (130-400); RBC 3.46 10x6/uL (4.00-5.40); RDW 17.3 % (11.5-14.5)
[2017-07-27 08:35] LABS: WBC 17.4 10x3/uL (4.8-10.8)
--- NOTE | 2017-07-27 09:10 | NUR ---
NUTRITION F/U CHART REVIEWED. SPOKE WITH NURSING. VITAL 1.0 NOW AT 40 CC/HR. 75 CC H2O FLUSH Q 4 HOURS. RECOMMEND GOAL RATE 65 CC/HR. RD FOLLOWING
--- NOTE | 2017-07-27 11:56 | NUR ---
DIPRIVAN BEING TITRATED TO EFFECT PER ORDERS.
--- NOTE | 2017-07-27 13:04 | NUR ---
ANSWERES QUESTIONS WITH HEAD NODS. DENIES PAIN. DENIES BEING TO COLD OR TO HOT. FAMILY AT BEDSIDE. UPDATED ABOUT CT GUIDED DRAIN PLACEMENT WITH POSSIBLE DRAINAGE OF PUSTULENT POCKET.
--- NOTE | 2017-07-27 14:02 | NUR ---
TO CT FOR CT GUIDED DRAIN PLACEMENT.
--- NOTE | 2017-07-27 15:15 | NUR ---
HOOKED BACK UP TO CM. CVP TO DISTAL PORT LEVELED AND ZEROED. NGT PLACEMNET VERIFIED WITH SMALL AIR BOLUS AUSCULTATED OVER GASTRIC REGION. 7.5 ETT REMAINS SECURED AT 23 CM AT LIP. VENT SETTING=SIMV RATE OF 14 , 600 TV, PS=10,P=5,40% FIO2. SEDATED WITH DIPRIVAN AND FENTANYL. ACTUAL RR 14. OPENS EYES AND FOLLOWS COMMANDS BUT DOSES BACK OFF. LEFT LOWER QUAD COLOSTOMY. RIGHT LOWER QUAD BILIARY DRAIN AND MAGNOLIA DRAIN. ALL DRSF CD&I. HEELS ARE BRIDGED. SCD'D ARE ON. CPOC.
--- NOTE | 2017-07-27 15:15 | NUR ---
BACK FROM CT FOR DEAIN PLACEMENT IN RIGHT LOWER QUAD
--- NOTE | 2017-07-27 15:34 | NUR ---
TF RESUMED AT 40 CC PER HOUR.
--- NOTE | 2017-07-27 16:45 | NUR ---
DR. CORTES CAlled ME. ORDERS REC'D TO DC TF AND HOOK NGT TO LIWS. INCREASE IVF TO 100 CC PER HOUR.
--- NOTE | 2017-07-27 16:49 | NUR ---
PAMELA CORTES ASSUMED CARE REPORT GIVEN.
--- NOTE | 2017-07-27 16:56 | NUR ---
1700 CARE ASSUMED OF PT AFTER REPORT RECIEVED FROM ANGELICA SIMPSON RN.. 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 PT IS AWAKE AND APPROPRIATE IN HER RESPONSES.. THERE IS A WOUND VAC TO MIDABDOMINAL INCISION WITH COLOSTOMY BAG STOMA BRIGHT PINK AND LARGE LIQUID STOOL IN THE BAG.. THERE IS A MAGNOLIA DRAIN ON THE RIGHT ABDOMEN WITH DRAIN LEFT LATERAL ABDOMEN.. THERE IS THE SAME JOSE COLORED DRAINAGE FROM ALL THREE DRAIN AREAS.. NGT TO LIWS..
--- NOTE | 2017-07-27 17:40 | NUR ---
1730 DR CORTES IN TO SEE PT..
--- NOTE | 2017-07-27 19:00 | NUR ---
REPORT RECIEVED, SHIFT ASSESSMENT COMPLETE, PT IS SEDATED ON THE VENT, FOLLOWS COMMANDS, ON 40% FIO2 WITH 97% O2 SAT, CRACKLES HEARD IN B/L UPPER LOBES, DIMINISHED IN B/L LOWER LOBES, S1S2, CM-NSR, PATENT LEFT SC CVL...SEE IV FLOW SHEET...WV TO ABDOMEN, ACTIVE BS NOTED, DRAINS TO LEFT ABDOMEN NOTED WITH PURULENT DRAINAGE, DRSGS CDI, PATENT F/C WITH CONCENTRATED UOP, ALL PPP, VSS, WILL CON'T TO MONITOR
--- NOTE | 2017-07-27 20:30 | NUR ---
CONSENT GIVEN BY FELIPE FOR EXPLORATORY LAP AND ABDOMINAL WASHOUT FOR TOMORROW BY DR. PURCELL/SOPHIA, CHESTER BURLESON RN WITNESSED,
--- NOTE | 2017-07-27 21:14 | NUR ---
REPOSITIONED FOR COMFORT, ORAL CARE PROVIDED,
--- NOTE | 2017-07-27 23:09 | NUR ---
REASSESSMENT COMPLETE PER FLOW SHEET. NO NEW FINDINGS. VENT ALARMING RESP. NOTIFIED. ORAL ENOTRACH CARE ADM. REPOSITIONED UP IN BED. NEEDS. MET WILL CONTINUE TO MONITOR
[2017-07-28] VITALS (91 sets, daily range): BP systolic 64–152; BP diastolic 43–90
--- NOTE | 2017-07-28 01:00 | NUR ---
REPOSITIONED FOR COMFORT, ORAL CARE PROVIDED,
--- NOTE | 2017-07-28 03:00 | NUR ---
RAD IN ROOM FOR DAILY CXR, PT TOLERATED WELL
[2017-07-28 03:57] LABS: BASOPHILS 0.1 % (0-2); EOSINOPHILS 0.8 % (0-7); HEMATOCRIT 33.4 % (36.0-48.0); HEMOGLOBIN 10.5 g/dL (12-16); IMMATURE GRANULOCYTES 4.1 % (0-5); LYMPHOCYTES 6.2 % (15-50); MCH 28.8 pg (26.0-34.0); MCHC 31.4 g/dL (31.0-37.0); MCV 91.5 fL (80.0-100.0); MEAN PLATELET VOLUME 10.6 fL (7.4-10.4); MONOCYTES 3.6 % (2-11); NEUTROPHILS 89.3 % (40-80); PLATELET COUNT 326 10x3/uL (130-400); RBC 3.65 10x6/uL (4.00-5.40); RDW 16.8 % (11.5-14.5); WBC 22.3 10x3/uL (4.8-10.8)
[2017-07-28 04:06] LABS: ALBUMIN 1.3 g/dL (3.4-5.0); ALKALINE PHOSPHATASE 225 U/L (46-116); ALT (SGPT) 9 U/L (10-68); BILIRUBIN - TOTAL 0.27 mg/dL (0.2-1.3); CALCIUM 7.3 mg/dL (8.5-10.1); CARBON DIOXIDE 30.3 mmol/L (21.0-32.0); CHLORIDE - SERUM 108 mmol/L (98-107); CREATININE - SERUM 0.8 mg/dL (0.6-1.3); MAGNESIUM - SERUM 1.7 mg/dL (1.8-2.4); PROTEIN - SERUM 3.6 g/dL (6.4-8.2); SODIUM 142 mmol/L (136-145); UREA NITROGEN 13 mg/dL (7-18); eGFR NON AFRICAN AMERICAN 76 mL/min (90-120)
[2017-07-28 04:09] LABS: CALC OSMOLALITY 283 mosm/kg (275-300); GLUCOSE 109 mg/dL (74-106)
--- NOTE | 2017-07-28 05:00 | NUR ---
COMPLETE BATH AND LINEN CHANGE, PT TOLERATED WELL
--- NOTE | 2017-07-28 13:01 | NUR ---
Nutrition follow-up: Received verbal order from Dr Houser and Dr Llamas to being TPN. Labs reviewed and TPN ordered. IVF decreased to 30 ml/hr RDN will order labs Following.
--- NOTE | 2017-07-28 14:21 | NUR ---
WILL GIVE NaPHOS WHEN RECD. FROM Rx
--- NOTE | 2017-07-28 16:16 | NUR ---
Wound vac dressing change: Abd: 9cm x 4cm x 3.2cm x 4.5cm @ 6 oclock. Wound bed is pink with granulation noted. Moderate amount of seropurulent drainage noted. No odor noted upon removal of dressing. 2 pieces of black foam used for dressing. Pt tolerated well.
--- NOTE | 2017-07-28 19:45 | NUR ---
RECEIVED CARE OF PT, ASSESSMENT PER FLOWSHEET. PT SEDATED ON VENT BUT ABLE TO FOLLOW COMMANDS, GTT'S INFUSING PER FLOWSHEET, HR SR ON MONITOR, ORAL CARE PROVIDED AND POSITIONED FOR COMFORT, SKIN ASSESSMENT PER FLOWSHEET. WILL MONITOR.
--- NOTE | 2017-07-28 21:30 | NUR ---
NO VISITORS PRESENT AT THIS TIME, PT RESTING ON VENT, CONT POC.
--- NOTE | 2017-07-28 23:30 | NUR ---
REASSESSMENT PER FLOWSHEET, NO ACUTE CHANGES NOTED. ORAL CARE PROVIDED, REPOSITIONED FOR COMFORT SUPPORTED WITH PILLOWS, EXTREMITITES ELEVATED, CONT POC.
[2017-07-29] VITALS (82 sets, daily range): BP systolic 76–125; BP diastolic 43–79
--- NOTE | 2017-07-29 01:19 | NUR ---
RT AT BEDSIDE, ORAL CARE COMPLETED, PT TOLERATED WELL, VSS, CONT TO MONITOR.
[2017-07-29 04:18] LABS: BASOPHILS 0.1 % (0-2); EOSINOPHILS 0.7 % (0-7); HEMATOCRIT 30.3 % (36.0-48.0); HEMOGLOBIN 9.7 g/dL (12-16); LYMPHOCYTES 5.8 % (15-50); MCV 90.7 fL (80.0-100.0); MEAN PLATELET VOLUME 10.6 fL (7.4-10.4); MONOCYTES 4.6 % (2-11); NEUTROPHILS 85.8 % (40-80); PLATELET COUNT 273 10x3/uL (130-400); RBC 3.34 10x6/uL (4.00-5.40); RDW 17.3 % (11.5-14.5); WBC 18.9 10x3/uL (4.8-10.8)
[2017-07-29 05:00] LABS: ALBUMIN 1.1 g/dL (3.4-5.0); ANION GAP 9.1 mmol/L (8-16); BILIRUBIN - TOTAL 0.27 mg/dL (0.2-1.3); CARBON DIOXIDE 29.6 mmol/L (21.0-32.0); CREATININE - SERUM 0.9 mg/dL (0.6-1.3); MAGNESIUM - SERUM 1.9 mg/dL (1.8-2.4); POTASSIUM - SERUM 3.7 mmol/L (3.5-5.1); PROTEIN - SERUM 3.5 g/dL (6.4-8.2)
[2017-07-29 05:05] LABS: PHOSPHOROUS 2.6 mg/dL (2.5-4.9)
--- NOTE | 2017-07-29 05:30 | NUR ---
AM LABS REVIEWED, NOTHING TO TREAT PER ELECTROLYTE PROTOCOL.
--- NOTE | 2017-07-29 09:38 | NUR ---
Nutrition follow-up: Labs reviewed. Will continue current TPN RDN following.
--- NOTE | 2017-07-29 19:30 | NUR ---
RESUMED CARE OF PT, ASSESSMENT PER FLOWSHEET. PT POSITIONED FOR COMFORT SUPPORTED WITH PILLOWS, ORAL CARE AND SUCTIONING COMPLETED, HR SR ON CM, CRACKLES AUSCULTATED BILAT WITH DIM BASES, PPP, SKIN ASSESSMENT PER FLOWSHEET, VALDEZ CATH PATENT, NGT TO LIWS WITH YELLOW-GREEN LIQUID IN TUBING-PLACEMENT VERIFIED WITH SMALL AIR BOLUS. WILL MONITOR.
--- NOTE | 2017-07-29 23:30 | NUR ---
REASSESSMENT PER FLOWSHEET, LEVOPHED GTT REMAINS AT 5 MCG, HR SR ON MONITOR, POSITIONED FOR COMFORT.
[2017-07-30] VITALS (83 sets, daily range): BP systolic 68–139; BP diastolic 41–80
--- NOTE | 2017-07-30 01:10 | NUR ---
PT RESTING ON VENT, SEDATION INCREASED FOR PT COMFORT, SBP REMAINS IN MD PARAMETERS, WILL MONITOR CLOSELY.
--- NOTE | 2017-07-30 03:20 | NUR ---
AM CXR COMPLETED PER RADIOLOGY, PT TOLERATED WELL, REPOSITIONED FOR COMFORT.
--- NOTE | 2017-07-30 05:10 | NUR ---
NO VISITORS PRESENT AT THIS TIME, VSS, CONT POC.
[2017-07-30 05:30] LABS: BASOPHILS 0.1 % (0-2); EOSINOPHILS 1.1 % (0-7); HEMATOCRIT 28.7 % (36.0-48.0); HEMOGLOBIN 9.2 g/dL (12-16); LYMPHOCYTES 6.2 % (15-50); MCH 28.9 pg (26.0-34.0); MCHC 32.1 g/dL (31.0-37.0); MCV 90.3 fL (80.0-100.0); MEAN PLATELET VOLUME 10.9 fL (7.4-10.4); MONOCYTES 4.7 % (2-11); NEUTROPHILS 83.9 % (40-80); PLATELET COUNT 267 10x3/uL (130-400); RBC 3.18 10x6/uL (4.00-5.40); RDW 17.7 % (11.5-14.5); WBC 18.1 10x3/uL (4.8-10.8)
[2017-07-30 05:58] LABS: ANION GAP 7.3 mmol/L (8-16); BILIRUBIN - TOTAL 0.2 mg/dL (0.2-1.3); CALCIUM 7.4 mg/dL (8.5-10.1); CARBON DIOXIDE 28.8 mmol/L (21.0-32.0); CREATININE - SERUM 0.9 mg/dL (0.6-1.3); POTASSIUM - SERUM 4.1 mmol/L (3.5-5.1); PROTEIN - SERUM 4.1 g/dL (6.4-8.2)
[2017-07-30 05:59] LABS: PHOSPHOROUS 3.5 mg/dL (2.5-4.9)
--- NOTE | 2017-07-30 19:10 | NUR ---
REPORT RECIEVED, SHIFT ASSESSMENT COMPLETE, PT IS SEDATED ON VENT, FOLLOWS COMMANDS, ON 40% FIO2 WITH 97% O2 SAT. CRACKLES HEARD IN B/L UPPER LOBES, DIMINISHED IN B/L LOWER LOBES, S1S2, CM-NSR, PATENT LEFT SC CVL...SEE IV FLOW SHEET...REE TO ABDOMINAL INCISION, NO REDNESS NOTED, WV TO LOWER ABDOMEN INCISION, PURULENT DRAINAGE, RIGHT MAGNOLIA AND IR DRAIN NOTED WITH PURULENT DRAINGE, DRSGS ARE CDI, HYPO BS NOTED, PATENT F/C WITH YELLOW UOP, EDEMA NOTED IN ALL EXTREMETIES, ALL PPP, VSS, WILL CON'T TO MONITOR
--- NOTE | 2017-07-30 21:00 | NUR ---
NO VISITORS AT THIS TIME, REPOSITIONED FOR COMFORT, WILL CON'T TO MONITOR
--- NOTE | 2017-07-30 23:12 | NUR ---
COMPLETE BATH AND LINEN CHANGE, PT TOLERATED WELL, WILL CON'T TO MONITOR
[2017-07-31] VITALS (93 sets, daily range): BP systolic 77–128; BP diastolic 45–82
--- NOTE | 2017-07-31 01:00 | NUR ---
REPOSITIONED FOR COMFORT, ORAL CARE PROVIDED,
--- NOTE | 2017-07-31 03:00 | NUR ---
REASSESSMENT COMPLETE, NO CHAGNES NOTED, RAD IN ROOM FOR DAILY CXR,
--- NOTE | 2017-07-31 05:27 | NUR ---
REPOSITIONED FOR COMFORT, ORAL CARE PROVIDED,
[2017-07-31 06:13] LABS: BASOPHILS 0.1 % (0-2); EOSINOPHILS 1.1 % (0-7); HEMATOCRIT 24.5 % (36.0-48.0); HEMOGLOBIN 7.8 g/dL (12-16); IMMATURE GRANULOCYTES 2.5 % (0-5); LYMPHOCYTES 6.5 % (15-50); MCH 28.7 pg (26.0-34.0); MCHC 31.8 g/dL (31.0-37.0); MCV 90.1 fL (80.0-100.0); MEAN PLATELET VOLUME 10.1 fL (7.4-10.4); MONOCYTES 6.8 % (2-11); PLATELET COUNT 225 10x3/uL (130-400); RBC 2.72 10x6/uL (4.00-5.40); RDW 17.9 % (11.5-14.5); WBC 14.2 10x3/uL (4.8-10.8)
[2017-07-31 06:35] LABS: ALBUMIN 0.8 g/dL (3.4-5.0); ANION GAP 7.4 mmol/L (8-16); BILIRUBIN - TOTAL 0.22 mg/dL (0.2-1.3); CALCIUM 7.1 mg/dL (8.5-10.1); CARBON DIOXIDE 27.1 mmol/L (21.0-32.0); CREATININE - SERUM 0.9 mg/dL (0.6-1.3); PHOSPHOROUS 3.8 mg/dL (2.5-4.9); POTASSIUM - SERUM 4.5 mmol/L (3.5-5.1); PROTEIN - SERUM 3.6 g/dL (6.4-8.2)
--- NOTE | 2017-07-31 08:29 | NUR ---
0800 AM ASSESMENT IS COMPLETE SEE FLOW SHEET FOR FINDINGS.. PT IS ORALLY INTUBATED ON THE VENT WITH SEDATION DIPRIVAN AND FENTANYLL ON EYES ARE OPEN AND PT IS RESPONSIVE AND APPROPRIATE.. [address] WATTS IS IN TO SEE PT.. UDPATE GIVEN..
--- NOTE | 2017-07-31 09:21 | NUR ---
Nutrition follow-up: TPN - D25W,4.25%AA - infusing @ 40 ml/hr; D5,1/2NS @ 50 ml/hr Propofol @ 17.3 ml/hr Pt remains intubated, sedated at this time NGT->LIWS Wt: 226# Labs reviewed TF, IVF, propofol providin kcal 41 gm protein Will continue current TPN at this time. RDN following.
--- NOTE | 2017-07-31 11:02 | NUR ---
1000 WITHOUT VISITORS AT THIS TIME PT IS WITHOUT CHANGES..
--- NOTE | 2017-07-31 14:14 | NUR ---
Wound vac dressing change: Abdomen: 9cm x 3.5cm x 2cm x 2cm @ 6 oclock Wound is red/pink with moderate amount of brownish drainage. There is no odor noted. No muscle or tendon is exposed. 2 pieces of black foam used for dressing change. Settings: -125mmhg low continuous. Pt tolerated well.
--- NOTE | 2017-07-31 17:36 | NUR ---
1200 WIHTOUT CHANGES IN PT STATUS.. 1300 DR CHANEY IN TO SEE PT.. 1400 NO NEW ORDERS 1600 I AND O DONE 1700 NO CHANGES IN PT STATUS..
--- NOTE | 2017-07-31 18:22 | NUR ---
1800 WIHTOUT VISITORS .. REPOSITIONED
--- NOTE | 2017-07-31 19:00 | NUR ---
REPORT RECIEVED, SHIFT ASSESSMENT COMPLETE, PT IS SEDATED ON VENT, ON 40% FIO2 WITH 97% O2 SAT. CRACKLES HEARD IN B/L UPPER LOBES, DIMINISHED IN B/L LOWER LOBES, S1S2, CM-NSR, PATENT LEFT SC CVL...SEE IV FLOW SHEET...PATENT F/C WITH YELLOW UOP, EDEMA NOTED IN ALL EXTREMETIES, ALL PPP, VSS, WILL CON'T TO MONITOR
--- NOTE | 2017-07-31 20:45 | NUR ---
UPDATE GIVEN TO OVER PHONE, PASSWORD OBTAINED
--- NOTE | 2017-07-31 23:02 | NUR ---
REASSESSMENT COMPLETE, NO CHANGES NOTED, PT RESTING AT THIS TIME, REPOSITIONED FOR COMFORT, ORAL CARE PROVIDED,
[2017-08-01] VITALS (90 sets, daily range): BP systolic 80–131; BP diastolic 47–83
--- NOTE | 2017-08-01 | NUR ---
CHANGED PATIENT VENT CIRCUIT..
--- NOTE | 2017-08-01 01:30 | NUR ---
REPOSITIONED FOR COMFORT, ORAL CARE PROVIDED, WILL CON'T TO MONITOR
--- NOTE | 2017-08-01 03:30 | NUR ---
REASSESSMENT COMPLETE, NO CHANGES NOTED, WILL CON'T TO MONITOR
[2017-08-01 04:35] LABS: BASOPHILS 0.1 % (0-2); EOSINOPHILS 1.2 % (0-7); HEMATOCRIT 24.9 % (36.0-48.0); LYMPHOCYTES 8.1 % (15-50); MCH 29.2 pg (26.0-34.0); MCHC 32.1 g/dL (31.0-37.0); MCV 90.9 fL (80.0-100.0); MONOCYTES 7.3 % (2-11); NEUTROPHILS 80.3 % (40-80); PLATELET COUNT 231 10x3/uL (130-400); RBC 2.74 10x6/uL (4.00-5.40); RDW 18.3 % (11.5-14.5); WBC 11.3 10x3/uL (4.8-10.8)
[2017-08-01 04:50] LABS: ALBUMIN 0.8 g/dL (3.4-5.0); ALKALINE PHOSPHATASE 181 U/L (46-116); BILIRUBIN - TOTAL 0.22 mg/dL (0.2-1.3); CALC OSMOLALITY 279 mosm/kg (275-300); CALCIUM 7.4 mg/dL (8.5-10.1); CARBON DIOXIDE 27.6 mmol/L (21.0-32.0); CHLORIDE - SERUM 107 mmol/L (98-107); CREATININE - SERUM 0.8 mg/dL (0.6-1.3); GLUCOSE 162 mg/dL (74-106); MAGNESIUM - SERUM 2.1 mg/dL (1.8-2.4); PHOSPHOROUS 3.6 mg/dL (2.5-4.9); POTASSIUM - SERUM 4.9 mmol/L (3.5-5.1); PROTEIN - SERUM 3.8 g/dL (6.4-8.2); SODIUM 137 mmol/L (136-145); UREA NITROGEN 19 mg/dL (7-18); eGFR NON AFRICAN AMERICAN 76 mL/min (90-120)
[2017-08-01 04:55] LABS: ALT (SGPT) 3 U/L (10-68)
--- NOTE | 2017-08-01 05:20 | NUR ---
PT RESTING COMFORTABLY AT THIS TIME, WILL CON'T TO MONITOR
--- NOTE | 2017-08-01 07:56 | NUR ---
Nutrition follow-up: Chart reviewed. Will continue current TPN regimen. RDN following.
--- NOTE | 2017-08-01 08:05 | NUR ---
0800 AM ASSESMENT IS COMPLETE SEE FLOW SHEET FOR FINDINGS.. PT IS AWAKE.. ORALLY INTUBATED ON VENT.. REPOSITIONED ORAL CARE....
--- NOTE | 2017-08-01 11:10 | NUR ---
1000 SISTER AT BEDSIDE TO SEE PT.. UPDATE IS GIVEN.. PT IS AWAKE AND RESPONDS TO FAMILY MEMBER.. TITRATING LEVOPHED DOWN 1100 CONITNUE TO TITRATE TTHE LEVOPHED DOWN SYS BP>100 AT THIS TIME
--- NOTE | 2017-08-01 15:14 | NUR ---
[address] PURCELL IN TO SEE PT SPOKE WITH AT BEDSIDE.. 1300 DR GARCÍA IN TO SEE PT SPOKE WITH AT BEDSIDE.. PT ON CPAP TRIALS AT HIS TIME DIPRPIVAN OFF.. 1400 GONE FROM BEDSIDE PT IS AWAKE AND APPROPRIATE.. 1440 ABG BY RT.. PT NOT TO BE EXUBATED AT THIS TIME.. 1500 DIPRIVAN ADJUSTED FOR VENT MANAGMENT.. LEVOPHED INCREASED SYS BP DECREASED WITH INCREASE OF DIPRIVAN
--- NOTE | 2017-08-01 17:39 | NUR ---
1600 CONTINUE TO TITRATE LEVOPHED.. PT IS DOZING EASILY ROUSED 1700 I AND O DONE 1730 NO CHANGES IN PT AT THIS TIME
--- NOTE | 2017-08-01 19:15 | NUR ---
REPORT RECIEVED, SHIFT ASSESSMENT COMPLETE, PT IS SEDATED ON VENT, FOLLOWS COMMANDS, ON 40% FIO2 WITH 94% O2 SAT. CRACKLES HEARD IN B/L UPPER LOBES, DIMINISHED IN B/L LOWER LOBES, S1S2, CM-NSR, PATENT LEFT SC CVL...SEE IV FLOW SHEET..ABDOMEN IS DISTENDED WITH HYPO BS, COLOSTOMY TO LEFT ABDOME, PATENT F/C WITH YELLOW UOP, ALL PPP, VSS, WILL CON'T TO MONITOR
--- NOTE | 2017-08-01 21:15 | NUR ---
COMPLETE BATH AND LINEN CHANGE, PT TOLERATED WELL
--- NOTE | 2017-08-01 23:13 | NUR ---
REASSESSMENT COMPLETE, NO CHANGES NOTED, WILL CON'T TO MONITOR
[2017-08-02] VITALS (41 sets, daily range): BP systolic 82–131; BP diastolic 51–85
--- NOTE | 2017-08-02 01:00 | NUR ---
REPOSITIONED FOR COMFORT, ORAL CARE PROVIDED, WILL CON'T TO MONITOR
--- NOTE | 2017-08-02 03:00 | NUR ---
RAD IN ROOM FOR DAILY CXR, PT TOLERATED WELL
[2017-08-02 04:17] LABS: BASOPHILS 0.2 % (0-2); EOSINOPHILS 1.7 % (0-7); HEMATOCRIT 25.7 % (36.0-48.0); IMMATURE GRANULOCYTES 3.4 % (0-5); LYMPHOCYTES 9.2 % (15-50); MCH 28.8 pg (26.0-34.0); MCHC 31.1 g/dL (31.0-37.0); MCV 92.4 fL (80.0-100.0); MEAN PLATELET VOLUME 9.8 fL (7.4-10.4); MONOCYTES 8.2 % (2-11); NEUTROPHILS 77.3 % (40-80); PLATELET COUNT 266 10x3/uL (130-400); RBC 2.78 10x6/uL (4.00-5.40); RDW 18.1 % (11.5-14.5); WBC 10.9 10x3/uL (4.8-10.8)
[2017-08-02 04:36] LABS: CALC OSMOLALITY 277 mosm/kg (275-300); CALCIUM 7.6 mg/dL (8.5-10.1); CARBON DIOXIDE 28.2 mmol/L (21.0-32.0); CHLORIDE - SERUM 107 mmol/L (98-107); CREATININE - SERUM 0.8 mg/dL (0.6-1.3); GLUCOSE 142 mg/dL (74-106); PHOSPHOROUS 3.5 mg/dL (2.5-4.9); POTASSIUM - SERUM 5.1 mmol/L (3.5-5.1); SODIUM 137 mmol/L (136-145); UREA NITROGEN 19 mg/dL (7-18); eGFR NON AFRICAN AMERICAN 76 mL/min (90-120)
--- NOTE | 2017-08-02 05:00 | NUR ---
ORAL CARE PROVIDED, REPOSITIONED FOR COMFORT
--- NOTE | 2017-08-02 07:00 | NUR ---
PT REPORT REC'D, PT CARE ASSUMED. PT SEDATED ON VENT, ABLE TO FOLLOW COMMANDS. BILAT WRIST RESTRAINTS. LEFT SUBCLAVIAN CVL WITH FLUIDS INFUSING, SEE FLOW SHEET. COLSOTOMY NOTED. RIGHT UPPER ABDOMEN IR DRAIN WITH PURULENT DRAINAGE, RIGHT LOWER ABDOMEN MAGNOLIA DRAIN COMPRESSED WITH PURULETN DRAINAGE. MIDLINE ABDOMEN TO WOUND VAC, NO LEAKS NOTED. VALDEZ CATHETER FREE OF KINKS TO GRAVITY WITH YELLOW URINE RETURN. SHIFT ASSESSMENT COMPLETED, SEE FLOW SHEET. ROOM FREE OF CLUTTER, CALL LIGHT IN REACH. BED LOCKED IN LOWEST POSITION, CALL LIGHT IN REACH, BED ALARM ACTIVE. WILL CONTINUE TO MONITOR PT.
--- NOTE | 2017-08-02 09:03 | NUR ---
PT FAMILY AT THE BEDSIDE, ALL QUESTIONS ANSWERED, VSS, WILL CONTINUE TO MONITOR PT.
--- NOTE | 2017-08-02 10:32 | NUR ---
Nutrition follow-up: Chart reviewed. K trending up New TPN orders sent to pharmacy. RDN following.
--- NOTE | 2017-08-02 11:11 | NUR ---
DR. GARCÍA AT THE BEDSIDE
--- NOTE | 2017-08-02 12:08 | NUR ---
Wound vac dressing change Midline abdomen: 8.5cm x 3.5cm x 2cm x 3cm @ 6 oclock Wound bed is pink. Moderate serous drainage with no odor. No muscle or tendon exposed. 2 pieces of rodriguez foam were used for dressing. Settings: -125mmhg low continuous. Pt tolerated well.,
--- NOTE | 2017-08-02 15:00 | NUR ---
REPOSITIONED PT, PROPPED WITH PILLOWS, VSS, REASSESSMENT COMPLETED, SEE FLOW SHEET. BED LOCKED IN LOWEST POSITION, CALL LIGHT IN REACH, BED ALARM ACTIVE, WILL CONTINUE TO MONITOR PT.
--- NOTE | 2017-08-02 16:00 | NUR ---
PTS CALLED, PASSWORD REC'D, UPDATE GIVEN, ALL QUESTIONS ANSWERED, WILL CONTINUE TO MONITOR PT.
--- NOTE | 2017-08-02 17:00 | NUR ---
PT FAMILY AT THE BEDSIDE, ALL QUESTIONS ANSWERED, VSS, WILL CONTINUE TO MONITOR PT.
--- NOTE | 2017-08-02 17:30 | NUR ---
DR. MC AT THE BEDSIDE, VS, WILL CONTINUE TO MONITOR PT.
--- NOTE | 2017-08-02 19:40 | NUR ---
REPORT RECIEVED. ASSESSMENT COMPLETE PER FLOW SHEET. VSS. REPOISITONED UP IN BED ON R SIDE. WILLCONTINUE TO MONITOR
--- NOTE | 2017-08-02 21:00 | NUR ---
NO FAMILY AT THIS TIME. VSS. NO NEW CHANGES. 2100 MEDS ADM WITHOUT DIFFICULTY.
--- NOTE | 2017-08-02 22:45 | NUR ---
CHANGED OUT PATIENTS VENT. (VENT ALERTED SERVICE ALERT ON SCREEN)
--- NOTE | 2017-08-02 23:12 | NUR ---
REASSESSMENT COMPLETE PER FLOW SHEET. VSS. NO NEW CHANGES. WILL CONTINUE TO MONITOR
--- NOTE | 2017-08-02 23:15 | NUR ---
REASSESSMENT COMPLETE PER FLOW SHEET. VSS NO NEW CHANGES. WILL CONTINUE TO MONITOR
[2017-08-03] VITALS (24 sets, daily range): BP systolic 92–127; BP diastolic 50–632
--- NOTE | 2017-08-03 01:00 | NUR ---
COMPLETE BB LINEN CHANGE ADM. NON EW CHANGES. WILL ONTINUE TO YASMEEN
--- NOTE | 2017-08-03 03:00 | NUR ---
REASSESSMENT COMPLETE PER FLOW SHEET. VSS. NO NEW CHANGES. WILLCONTINUE TO MONITOR
[2017-08-03 04:21] LABS: BASOPHILS 0.3 % (0-2); EOSINOPHILS 1.6 % (0-7); HEMATOCRIT 22.4 % (36.0-48.0); IMMATURE GRANULOCYTES 3.2 % (0-5); LYMPHOCYTES 8.8 % (15-50); MCH 29.3 pg (26.0-34.0); MCHC 31.7 g/dL (31.0-37.0); MCV 92.6 fL (80.0-100.0); MEAN PLATELET VOLUME 9.8 fL (7.4-10.4); MONOCYTES 7.3 % (2-11); NEUTROPHILS 78.8 % (40-80); PLATELET COUNT 261 10x3/uL (130-400); RBC 2.42 10x6/uL (4.00-5.40); RDW 18.2 % (11.5-14.5); WBC 10.4 10x3/uL (4.8-10.8)
[2017-08-03 04:29] LABS: CALC OSMOLALITY 285 mosm/kg (275-300); CALCIUM 7.7 mg/dL (8.5-10.1); CARBON DIOXIDE 28.3 mmol/L (21.0-32.0); CHLORIDE - SERUM 108 mmol/L (98-107); CREATININE - SERUM 0.8 mg/dL (0.6-1.3); GLUCOSE 129 mg/dL (74-106); POTASSIUM - SERUM 5.3 mmol/L (3.5-5.1); SODIUM 141 mmol/L (136-145); UREA NITROGEN 20 mg/dL (7-18); eGFR NON AFRICAN AMERICAN 76 mL/min (90-120)
[2017-08-03 04:33] LABS: HEMOGLOBIN 7.1 g/dL (12-16)
--- NOTE | 2017-08-03 05:00 | NUR ---
NO FAMILY AT THIS TIME. VSS. NO NEW CHANGES. REPOSITIONED UPIN BED ON L SIDE. WILL CONTINUE TO MONITOR
[2017-08-03 05:04] LABS: HEMATOCRIT 23.7 % (36.0-48.0); HEMOGLOBIN 7.6 g/dL (12-16)
[2017-08-03 07:43] LABS: PHOSPHOROUS 3.7 mg/dL (2.5-4.9)
--- NOTE | 2017-08-03 10:25 | NUR ---
DR. GARCÍA IN ROOM AND WILL EXTUBATE PATIENT. RESPIRATORY THERAPY HERE AND IN ROOM WITH PATIENT.
--- NOTE | 2017-08-03 10:30 | NUR ---
RESPIRATORY THERAPY IN ROOM, PATIENT WAS EXTUBATED, AND TOLERATING WELL.
--- NOTE | 2017-08-03 11:17 | NUR ---
PHYSICAL THERAPY IN ROOM PATIENT UP TO BEDSIDE, TOLERATED WELL. PATIENT BACK TO BED.
--- NOTE | 2017-08-03 12:15 | NUR ---
DR. PURCELL HERE IN TO SEE PATIENT, NEW ORDERS RECEIVED.
--- NOTE | 2017-08-03 12:21 | NUR ---
DR. MC HERE IN TO SEE PATIENT.
[2017-08-03 16:13] LABS: AFB SPECIMEN PROCESSING Concentration (())
--- NOTE | 2017-08-03 19:30 | NUR ---
SHIFT ASSESSMENT COMPLETE. PT IS A&O X4 WITH NO SIGNS OF ACUTE DISTRESS NOTED. NC @ 3 L/MIN O2 SAT 98%. VSS. NGT TO RIGHT NARE. SHE COMPLAINS THAT HER THROAT IS SORE AND THAT SHE WANTS ICE CHIPS. REFILLED ICE CHIPS, NO DIFFICULTY SWALLOWING. S1S2 AUDIBLE, CRACKLES HEARD BILAT THROUGHOUT ALL LOBES. PRODUCTIVE COUGH, ENCOURAGED PT TO KEEP COUGHING. HYPOACTIVE BS X4. MIDLINE ABD WOUND VAC, NO AIR LEAK DETECTED. R LOWER QUAD MAGNOLIA DRAIN DRAINING PURULENT DRAINAGE. IR DRAIN R MIDLINE ABD TO GRAVITY, PURULENT DRAINAGE. LEFT LOWER ABD, LARGE STOMA, COLOSTOMY BAG INTACT. STOMA IS PINK AND MOIST. GENERALIZED SWELLING IN UPPER EXT. LOWER EXT +2 PITTING EDEMA. ELEVATED LEGS FOR COMFORT AND TO DECREASE SWELLING. BUTTOCKS LOOKS GREAT, BUT THERE IS A SMALL REDDENED AREA. LT SUBCLAVIAN INFUSING NS @ 30 ML/HR AND TPN @ 40 ML/HR. CVP ZEROED, READING OF 3. VALDEZ CATH INTACT, VALDEZ CARE PROVIDED. NEW STAT LOCK APPLIED. REPOSITIONED FOR COMFORT. WILL CONT TO MONITOR.
--- NOTE | 2017-08-03 21:20 | NUR ---
NO VISITORS AT THIS TIME. VSS. PT DENIES ANY NEEDS. WILL CONT WITH POC.
--- NOTE | 2017-08-03 23:30 | NUR ---
REASSESSMENT COMPLETE. STOMA IS PINK, MOIST AND LARGE. COLOSTOMY BAG IN PLACE. PT STATES THAT SHE FEELS LIKE SHE CAN'T BREATHE. REPOSITIONED TO HIGH FOWLERS. O2 SAT 97%. RR SHALLOW. INSTRUCTED PT TO BREATHE SLOWLY THROUGH HER NOSE AND OUT OF HER MOUTH. SHE STATES THAT SHE FEELS BETTER. PT REQUESTS SOCKS TO BE REMOVED. APPLIED LOTION TO FEET AND LEGS DUE TO DRY SKIN. NO FURTHER NEEDS AT THIS TIME. WILL CONT TO MONITOR.
[2017-08-04] VITALS (24 sets, daily range): BP systolic 99–132; BP diastolic 67–97
--- NOTE | 2017-08-04 01:15 | NUR ---
REPOSITIONED FOR COMFORT. PT DENIES ANY NEEDS AT THIS TIME. WILL CONT TO REASSESS.
--- NOTE | 2017-08-04 03:30 | NUR ---
REASSESSMENT COMPLETE. NO CHANGES NOTED. SEE FLOWSHEET FOR DETAILS. REFILLED REFRESHMENTS. NO FURTHER NEEDS. WILL CONT WITH POC.
[2017-08-04 04:48] LABS: CALC OSMOLALITY 284 mosm/kg (275-300); CARBON DIOXIDE 27.8 mmol/L (21.0-32.0); CHLORIDE - SERUM 108 mmol/L (98-107); CREATININE - SERUM 0.8 mg/dL (0.6-1.3); GLUCOSE 146 mg/dL (74-106); PHOSPHOROUS 3.9 mg/dL (2.5-4.9); POTASSIUM - SERUM 4.9 mmol/L (3.5-5.1); SODIUM 140 mmol/L (136-145); UREA NITROGEN 20 mg/dL (7-18); eGFR NON AFRICAN AMERICAN 76 mL/min (90-120)
--- NOTE | 2017-08-04 05:30 | NUR ---
CHANGED IV TUBING. DATED AND LABELED. NO NEEDS AT THIS TIME. VSS. WILL CONT TO MONITOR.
--- NOTE | 2017-08-04 10:34 | NUR ---
NUTRITION F/U CHART REVIEWED. PT EXTUBATED AND UP IN CHAIR. CONTINUES TPN @ 40 CC/HR. BMP, MAG, PHOS ORDERED TIMES 3 DAYS. NO DIET STARTED OF YET. RD FOLLOWING
[2017-08-04 12:16] LABS: FUNGUS STAIN Final report (())
[2017-08-04 18:09] LABS: AEROBE ID Final report (())
--- NOTE | 2017-08-04 19:00 | NUR ---
REPORT RECIEVED, SHIFT ASSESSMENT COMPLETE, PLEASE SEE FLOW SHEETS FOR DETAILS. AWAKE AND ALERT, ORIENTED X4. PUPILS 3MM PERRLA. DENIES PAIN/NEEDS ATT. LUNGS WITH CLEAR IN UPPER LOBES WITH DIMINISHED CRACKLES IN LOWER LOBES. RR EVEN AND UNLABORED. S1S2 HEARD. SINUS TACHYCARDIA NOTED ON MONITOR @ 105. PPP. CAP REFIL <3 SECONDS. BS HYPO X4. COLOSTOMY IN LUQ. MIDLINE IN CISION WITH WOUND VAC IN PLACE. MAGNOLIA DRAIN TO RLQ AND IR GRAVITY DRAIN TO RUQ. OLD MAGNOLIA SITE ON LLQ, AND REE ABOVE MIDLINE VAC SITE. VALDEZ IN PLACE AND DRAINING VIA GRAVITY, YELLOW URINE NOTED. BRUISES NOTED ALL OVER BODY AND BUTTOCKS RED AND BLANCHABLE. BED LOW AND LOCKED, CALL LIGHT IN REACH. WILL CPOC.
--- NOTE | 2017-08-04 21:00 | NUR ---
ORAL CARE, VALDEZ CARE, AND TURNING PROVIDED. TOLERATED WELL. DENIES PAIN/NEEDS ATT. BED LOW AND LOCKED, CALL LIGHT IN REACH. VSS, WILL CPOC.
--- NOTE | 2017-08-04 23:00 | NUR ---
REASSESSMENT COMPLETE PER FLOW SHEET, PLEASE SEE FOR DETAILS. NO CHANGSE FROM PREVIOUS ASSESSMENT TO NOTE. ORAL CARE AND TURNING PROVIDED. BED LOW AND LOCKED, CALL LIGHT IN REACH. VSS, WILL CPOC.
[2017-08-05] VITALS (21 sets, daily range): BP systolic 94–127; BP diastolic 60–91
--- NOTE | 2017-08-05 01:00 | NUR ---
TURNING PROVIDED. DENIES PAIN/NEEDS ATT. BED LOW AND LOCKED, CALL LIGHT IN REACH. VSS, WILL CPOC.
--- NOTE | 2017-08-05 02:19 | NUR ---
RLQ MAGNOLIA DRAIN FLUSHED WITH 10ML STERILE SALINE, MAGNOLIA THEN COMPRESSED.
--- NOTE | 2017-08-05 02:56 | NUR ---
REASSESSMENT COMPLETE PER FLOW SHEET, PLEASE SEE FOR DETAILS. NO CHANGES TO NOTE FROM PREVIOUS ASSESSMENT. TURNING PROVIDED. BED LOW AND LOCKED, CALL LIGHT IN REACH. VSS, WILL CPOC.
[2017-08-05 04:55] LABS: BASOPHILS 0.4 % (0-2); EOSINOPHILS 2.1 % (0-7); HEMATOCRIT 26.4 % (36.0-48.0); HEMOGLOBIN 8.4 g/dL (12-16); LYMPHOCYTES 12.2 % (15-50); MCH 29.4 pg (26.0-34.0); MCHC 31.8 g/dL (31.0-37.0); MCV 92.3 fL (80.0-100.0); MONOCYTES 5.9 % (2-11); NEUTROPHILS 73.4 % (40-80); PLATELET COUNT 407 10x3/uL (130-400); RBC 2.86 10x6/uL (4.00-5.40); RDW 17.6 % (11.5-14.5); WBC 10.2 10x3/uL (4.8-10.8)
--- NOTE | 2017-08-05 05:00 | NUR ---
RESTING, EYES OPEN, WATCHING TV. DENIES PAIN/NEEDS ATT. VSS, BED LOW AND LOCKED, CALL LIGHT IN REACH. WILL CPOC.
[2017-08-05 05:19] LABS: CARBON DIOXIDE 30.2 mmol/L (21.0-32.0); CHLORIDE - SERUM 106 mmol/L (98-107); CREATININE - SERUM 0.8 mg/dL (0.6-1.3); MAGNESIUM - SERUM 1.8 mg/dL (1.8-2.4); PHOSPHOROUS 3.7 mg/dL (2.5-4.9); PRO BNP 2995 pg/mL (0-125); SODIUM 142 mmol/L (136-145); UREA NITROGEN 18 mg/dL (7-18); eGFR NON AFRICAN AMERICAN 76 mL/min (90-120)
[2017-08-05 05:22] LABS: CALC OSMOLALITY 290 mosm/kg (275-300); GLUCOSE 204 mg/dL (74-106); POTASSIUM - SERUM 3.8 mmol/L (3.5-5.1)
--- NOTE | 2017-08-05 23:03 | NUR ---
1900 REPORT RECIEVED, SHIFT ASSESSMENT COMPLETE, PLEASE SEE FLOW SHEET FOR DETAILS. AWAKE AND ALERT, ORIENTED X4, VOICE VERY SOFT, ALMOST INAUDIBLE. PERRLA @ 3MM. LUNGS WITH RHONCHI THROUGHOUT, DIMINISHED IN LOWER LOBES, PT SOB, WITH UNLAOBRED BREATHING. 3L NC ON AND SPO2 97%. S1S2 HEARD, SINUS TACH NOTED ON MONITOR @ 108, PPP, CAP REFIL <3 SECONDS. BS HYPO X4, ABD WITH MAGNOLIA DRAIN, IR DRAIN, MIDLINE WOUND VAC, AND COLOSTOMY ALL IN PLACE, ALL DRESSINGS CDI. VALDEZ IN PLACE AND DRAINING VIA GRAVITY, YELLOW URINE NOTED. DENEIS PAIN/NEEDS ATT. PROVIDES SELF ORAL CARE, AND SOME ASSISTANCE WITH TURNING PROVIDED. BED LOW AND LOCKED, CALL LIGHT IN REACH. VSS, WILL CPOC. 2100 WATCHING TV, NO S&S ACUTE DISTRESS NOTED. RR EVEN AND UNLABORED. COUGHING AND USING SUCTION EFFECTIVELY. VSS. BED LOW AND LOCKED, CALL LIGHT IN REACH. WILL CPOC. 2300 REASSESSMENT COMPLETE PER FLOW SHEET, PLEASE SEE FOR DETAILS. NO CHANGES FROM PREVIOUS ASSESSMENT TO NOTE. VSS, BED LOW AND LOCKED, CALL LIGHT IN REACH. WILL CPOC.
[2017-08-06] VITALS (24 sets, daily range): BP systolic 86–110; BP diastolic 47–82
--- NOTE | 2017-08-06 01:00 | NUR ---
TURNING PROVIDED. VSS, BED LOW AND LOCKED, CALL LIGHT IN REACH. WILL CPOC.
--- NOTE | 2017-08-06 02:17 | NUR ---
FLUSHED MAGNOLIA DRAIN WITH 10ML STERILE SALINE. FLUSHED IR DRAIN WITH 10ML STERILE SALINE. TOLERATED WELL. DENIES NEEDS ATT. ZERO'ED CVP LINE - CVP MEASURED 7. WILL CPOC.
--- NOTE | 2017-08-06 03:00 | NUR ---
REASSESSMENT COMPLETE PER FLOW SHEET, PLEASE SEE FOR DETAILS. NO CHANGES FROM PREVIOUS ASSESSMENTS TO NOTE. VSS, BED LOW AND LOCKED, CALL LIGHT IN REACH. VSS, WILL CPOC.
--- NOTE | 2017-08-06 05:00 | NUR ---
REFUSED TURNING. PROVIDES SELF ORAL CARE. VSS, NEW TUBING FOR CVP, FLUIDS PROVIDED. DENIES PAIN/NEEDS ATT. BED LOW AND LOCKED, CALL LIGHT IN REACH. WILL CPOC.
[2017-08-06 05:03] LABS: CALC OSMOLALITY 284 mosm/kg (275-300); CALCIUM 7.6 mg/dL (8.5-10.1); CARBON DIOXIDE 31.8 mmol/L (21.0-32.0); CHLORIDE - SERUM 107 mmol/L (98-107); CREATININE - SERUM 0.7 mg/dL (0.6-1.3); GLUCOSE 123 mg/dL (74-106); MAGNESIUM - SERUM 1.6 mg/dL (1.8-2.4); PHOSPHOROUS 3.2 mg/dL (2.5-4.9); POTASSIUM - SERUM 3.4 mmol/L (3.5-5.1); SODIUM 142 mmol/L (136-145); UREA NITROGEN 16 mg/dL (7-18); eGFR NON AFRICAN AMERICAN 89 mL/min (90-120)
--- NOTE | 2017-08-06 19:40 | NUR ---
Shift assessment complete. Pt is A&O x4 with no signs of acute distress noted and she denies any pain. NC @ 3.5 L/min O2 sat 97%. RR shallow, crackles heard bilat throughout all lobes. Productive cough, thick white sputum. S1S2 audible HR 102 sinus tach. CVP zeroed and reads as 1. Wound vac to mid abd, no air leak detected. MAGNOLIA drain to RLQ, clear drainage. IR drain to RUQ purulent drainage. LT subclavian CVL infusing D5 1/2 NS @ 50 ml/hr and TPN infusing @ 40 mL/hr. 1st step air overlay on mattress. Generalized swelling noted to upper ext and +2 pitting edema to lower ext. Xavier cath draining clear yellow urine. Repositioned for comfort. Refilled refreshments. Will cont with POC.
--- NOTE | 2017-08-06 21:20 | NUR ---
Repositioned for comfort. She denies any needs at this time. VSS. Will cont to monitor.
--- NOTE | 2017-08-06 23:30 | NUR ---
Reassessment complete. Pt states that she feels nauseated. Administered PRN zofran. Refilled ice chips. She refused to turn off of her R side. Productive cough with thick clear sputum. MAGNOLIA drain intact, clear drainage. IR drain, purulent drainage. Refilled refreshments. VSS. See flowsheet for details. Will cont with POC.
[2017-08-07] VITALS (24 sets, daily range): BP systolic 85–103; BP diastolic 48–68
--- NOTE | 2017-08-07 01:00 | NUR ---
No needs at this time. Pt states that she is not feeling nauseated any longer. VSS. Will cont to monitor.
--- NOTE | 2017-08-07 03:30 | NUR ---
Reassessment complete. No changed noted. Flushed MAGNOLIA drain with 15 mL NaCl. Clear drainage in return. She does not state any pain at this time. See flowsheet for details. Will cont to monitor. VSS.
[2017-08-07 04:23] LABS: BASOPHILS 0.2 % (0-2); EOSINOPHILS 2.7 % (0-7); HEMATOCRIT 22.5 % (36.0-48.0); IMMATURE GRANULOCYTES 4.7 % (0-5); LYMPHOCYTES 12.1 % (15-50); MCH 29.2 pg (26.0-34.0); MCHC 30.7 g/dL (31.0-37.0); MEAN PLATELET VOLUME 9.6 fL (7.4-10.4); MONOCYTES 6.6 % (2-11); NEUTROPHILS 73.7 % (40-80); PLATELET COUNT 398 10x3/uL (130-400); RBC 2.36 10x6/uL (4.00-5.40); RDW 17.7 % (11.5-14.5); WBC 10.6 10x3/uL (4.8-10.8)
[2017-08-07 04:26] LABS: HEMOGLOBIN 6.9 g/dL (12-16); MCV 95.3 fL (80.0-100.0)
[2017-08-07 04:41] LABS: ALBUMIN 0.9 g/dL (3.4-5.0); ALKALINE PHOSPHATASE 252 U/L (46-116); ALT (SGPT) 19 U/L (10-68); BILIRUBIN - TOTAL 0.15 mg/dL (0.2-1.3); CALC OSMOLALITY 279 mosm/kg (275-300); CALCIUM 7.4 mg/dL (8.5-10.1); CARBON DIOXIDE 31.4 mmol/L (21.0-32.0); CHLORIDE - SERUM 105 mmol/L (98-107); CREATININE - SERUM 0.7 mg/dL (0.6-1.3); GLUCOSE 93 mg/dL (74-106); MAGNESIUM - SERUM 1.6 mg/dL (1.8-2.4); PHOSPHOROUS 2.8 mg/dL (2.5-4.9); POTASSIUM - SERUM 3.7 mmol/L (3.5-5.1); PROTEIN - SERUM 4.3 g/dL (6.4-8.2); SODIUM 140 mmol/L (136-145); UREA NITROGEN 15 mg/dL (7-18); eGFR NON AFRICAN AMERICAN 89 mL/min (90-120)
--- NOTE | 2017-08-07 05:30 | NUR ---
Repositioned for comfort. Refilled refreshments. VSS. Will cont with POC.
--- NOTE | 2017-08-07 06:10 | NUR ---
Paged Dr. Orellana due to pt's Hgb value. Awaiting a call back. Mag 1.6, replacing with 2g Mag Sulfate via left subclavian CVL. Will cont with POC.
--- NOTE | 2017-08-07 10:45 | NUR ---
NUTRITION F/U CHART REVIEWED, PT VISIT. TPN OFF, ADA DIET. POOR INTAKE BREAKFAST. PT IS TAKING LIQUIDS WELL. WILL CONTINUE TO PROVIDE DIET, ENCOURAGE INTAKE. RD FOLLOWING
--- NOTE | 2017-08-07 13:35 | NUR ---
WOUND VAC DRESSING CHANGE WOUND TYPE: SURGICAL WOUND LOCATION: MIDLINE ABDOMEN MEASUREMENT DATE: 08/07/17 8.5CM X 3.5CM X 2.4CM (IMPROVED) FULL THICKNESS? YES MUSCLE, TENDON OR BONE EXPOSED? NO UNDERMINING? NO TUNNELING/SINUS? NO APPEARANCE OF WOUND BED : PINK WITH GRANULATION NOTED EXUDATE (AMOUNT, COLOR, ODOR): MODERATE FIBRINOUS/NO ODOR FOAM TYPE: BLACK # OF PIECES USED: 1 PIECE EDUCATION: PURPOSE OF WOUND VAC AND DRESSING CHANGE DAYS. -125MMGH MOD CONTINUOUS PT TOLERATED WELL.
--- NOTE | 2017-08-07 16:06 | NUR ---
1ST UNIT PRBC'S STARTED. PT TO CT SCAN.
--- NOTE | 2017-08-07 16:21 | NUR ---
Rehab Note- Acute Rehab Prescreen order received. The patient seems to be an appropriate acute rehab candidate when medically stable and ready for discharge from the acute hospital. Will continue to follow at this time. Thank you for this referral! Estefany Aldana RN Clinical Liaison, [facility]
--- NOTE | 2017-08-07 19:40 | NUR ---
Shift assessment complete. Pt is A&O x4 with no signs of acute distress. She is hunched over in the bed. Repositioned, NC @ 4 L/min, productive cough with clear secretions. S1S2 audible, crackles heard bilat throughout all lobes. Wound vac changed today to lower abd, no air leak detected. RLQ MAGNOLIA drain, clear drainage. RUQ IR drain, purulent drainage noted. LLQ colostomy, stoma is pink and moist. BS hypoactive x4. Xavier cath intact draining clear yellow urine. Left subclavian CVL infusing the second unit of PRBC's and D5 1/2 NS @ 50 mL/hr. Repositioned for comfort. VSS. Refilled refreshments. No further needs. Will cont to monitor.
--- NOTE | 2017-08-07 21:20 | NUR ---
Repositioned for comfort. No signs of transfusion reaction noted. VSS. Will cont with POC.
--- NOTE | 2017-08-07 22:30 | NUR ---
Pt complains of feeling nauseated. Administered PRN Zofran. Will cont to monitor.
--- NOTE | 2017-08-07 23:30 | NUR ---
Reassessment complete. No changes noted. Pt refused bath at this time. Will come back in a few hours to give bed bath. She states that she is still feeling a bit nauseated, but it's much better than before. Refilled refreshments. Repositioned for comfort. Will cont with POC.
[2017-08-08] VITALS (25 sets, daily range): BP systolic 90–111; BP diastolic 54–66
--- NOTE | 2017-08-08 01:30 | NUR ---
Complete bed bath and linen change complete. Pt tolerated well. She denies any needs at this time. Will cont to monitor.
--- NOTE | 2017-08-08 03:00 | NUR ---
Reassessment complete. No changes noted at this time. Flushed MAGNOLIA drain, clear drainage. IR drain to gravity with purulent drainage. S1S2 audible, crackles heard bilat throughout all lobes. Repositioned for comfort. Will cont to monitor.
[2017-08-08 05:23] LABS: BASOPHILS 0.2 % (0-2); EOSINOPHILS 2.9 % (0-7); IMMATURE GRANULOCYTES 3.9 % (0-5); LYMPHOCYTES 10.8 % (15-50); MCH 29.8 pg (26.0-34.0); MEAN PLATELET VOLUME 10.1 fL (7.4-10.4); MONOCYTES 6.9 % (2-11); NEUTROPHILS 75.3 % (40-80); PLATELET COUNT 370 10x3/uL (130-400); RDW 17.2 % (11.5-14.5); WBC 9.9 10x3/uL (4.8-10.8)
[2017-08-08 05:24] LABS: HEMATOCRIT 27.8 % (36.0-48.0); HEMOGLOBIN 8.9 g/dL (12-16); RBC 2.99 10x6/uL (4.00-5.40)
--- NOTE | 2017-08-08 05:30 | NUR ---
Refilled refreshments. Repositioned for comfort. No further needs. VSS. WIll cont with POC.
[2017-08-08 05:39] LABS: CALC OSMOLALITY 274 mosm/kg (275-300); CALCIUM 7.4 mg/dL (8.5-10.1); CARBON DIOXIDE 31.9 mmol/L (21.0-32.0); CHLORIDE - SERUM 103 mmol/L (98-107); CREATININE - SERUM 0.6 mg/dL (0.6-1.3); GLUCOSE 73 mg/dL (74-106); MAGNESIUM - SERUM 1.7 mg/dL (1.8-2.4); POTASSIUM - SERUM 3.6 mmol/L (3.5-5.1); SODIUM 138 mmol/L (136-145); UREA NITROGEN 12 mg/dL (7-18); eGFR NON AFRICAN AMERICAN > 90 mL/min (90-120)
--- NOTE | 2017-08-08 06:20 | NUR ---
Notified pharm about Robitussin. Will administer when available.
--- NOTE | 2017-08-08 07:30 | NUR ---
REPORT RECEIVED. ASSUMED CARE OF PATIENT. PT AWAKE, SITTING UP IN BED WATCHING TELEVISION. BREATHING TREATMENT IN PROGRESS.
--- NOTE | 2017-08-08 08:38 | NUR ---
MORNING MEDICATIONS PROVIDED. BREAKFAST TRAY SET UP FOR PATIENT. DENIES ANY OTHER NEEDS. CALL LIGHT IN REACH.
--- NOTE | 2017-08-08 10:11 | NUR ---
PT ASSISTED BACK TO BED FROM CHAIR BY PHYSICAL THERAPY. FULL LINEN CHANGE.
--- NOTE | 2017-08-08 10:26 | NUR ---
PT PROVIDED WITH BED BATH. DRAIN FLUSHED. VALDEZ CARE PROVIDED.
--- NOTE | 2017-08-08 11:36 | NUR ---
LUNCH TRAY PROVIDED. PT NOT READY TO EAT ANYTHING YET. ASKES TO KEEP LID ON FOOD FOR TIME BEING.
--- NOTE | 2017-08-08 12:59 | NUR ---
ORAL CONTRAST CONSUMED.
--- NOTE | 2017-08-08 13:04 | NUR ---
PT HAS ORDERS TO REMOVED VALDEZ CATHETER. HAS HAD CATHETER SINCE 07/14/17. WILL START BLADDER TRAINING AT THIS TIME AND WORK TO REMOVE CATHETER.
--- NOTE | 2017-08-08 14:15 | NUR ---
VALDEZ CATHETER UNCLAMPED. URINE RELEASED. RECLAMPED.
--- NOTE | 2017-08-08 14:46 | NUR ---
PT HAS BEEN TO CT. HOOKED BACK UP TO MONITORING. DENIES NEEDS AT THIS TIME.
--- NOTE | 2017-08-08 15:55 | NUR ---
VALDEZ CATHETER UNCLAMPED PER PT REQUEST. URINE RELEASED AND RECLAMPED.
--- NOTE | 2017-08-08 16:52 | NUR ---
PT PROVIDED WITH DINNER TRAY. SET UP IN BED AND PROVIDED WITH COVERING TO EAT. PT TAKING A FEW BITES BEFORE NURSE LEFT ROOM. DENIED ANY OTHER NEEDS.
--- NOTE | 2017-08-08 17:39 | NUR ---
DINNER TRAY REMOVED, PT ONLY ATE A COUPLE OF BITES OF SPAGHETTI. VALDEZ UNCLAMPED, URINE RELEASED AND RECLAMPED.
--- NOTE | 2017-08-08 19:40 | NUR ---
Shift assessment complete. Pt is A&O x4 with no complaints of nausea or pain. Bladder training in progress. Unclamped norman, pt stated that she felt the need to urinate. 300 mL of clear yellow urine in collection bag. S1S2 audible. V/S: HR 91, normal sinus with PVC's, Temp 97.4 temporal, BP 106/59, RR 14, O2 94%, 4 L/min via NC. Left subclavian CVL saline loc'd, swab caps in use, dressing CDI. ABD is tender to touch, BS active x4. MAGNOLIA drain in RLQ, clear drainage. IR drain RUQ, purulent drainage. LLQ colostomy, stoma pink, moist, collection bag in use. Upper ext generalized edema, lower ext +2 pitting edema. Repositioned for comfort. Elevated legs. Radial and pedal pulses palp. Refilled refreshments. She denies any other needs. Will cont to monitor.
--- NOTE | 2017-08-08 19:45 | NUR ---
CVP zeroed, reading 5.
--- NOTE | 2017-08-08 21:00 | NUR ---
Spoke with , Gui, code word provided. Updated him on pt condition. Pt denies any needs at this time. PO meds administered with no difficulty. IV abx infusing now. Repositioned for comfort. Will cont with POC.
--- NOTE | 2017-08-08 21:45 | NUR ---
Unclammped norman cath. Reclammped. Will cont with bladder training.
--- NOTE | 2017-08-08 23:30 | NUR ---
Reassessment complete. She states that she feels nauseated at this time. Administered PRN Zofran. Refused Robitussin. Educated her on the benefits of the medication. No further needs. Will cont with POC.
[2017-08-09] VITALS (26 sets, daily range): BP systolic 86–118; BP diastolic 45–97
--- NOTE | 2017-08-09 01:30 | NUR ---
Pt is resting peacefully. No distress noted. VSS. Will cont with POC.
--- NOTE | 2017-08-09 02:00 | NUR ---
Flushed MAGNOLIA drain with 15 cc saline. Clear drainage noted.
--- NOTE | 2017-08-09 03:30 | NUR ---
Reassessment complete. Pt is lying in bed with no signs of acute distress. She denies any pain. X-ray at bedside for chest X-ray. Pt's O2 sat is staying above 95%. Will cont to titrate O2. No further needs. Repositioned for comfort. Will cont with POC.
--- NOTE | 2017-08-09 05:00 | NUR ---
CVL dressing change to left subclavian using sterile technique. No needs at this time. Repositioned for comfort.
[2017-08-09 05:01] LABS: BASOPHILS 0.2 % (0-2); HEMATOCRIT 28.4 % (36.0-48.0); HEMOGLOBIN 9.1 g/dL (12-16); IMMATURE GRANULOCYTES 3.9 % (0-5); LYMPHOCYTES 11.8 % (15-50); MCH 29.7 pg (26.0-34.0); MCV 92.8 fL (80.0-100.0); MEAN PLATELET VOLUME 10.2 fL (7.4-10.4); MONOCYTES 6.3 % (2-11); NEUTROPHILS 75.8 % (40-80); RBC 3.06 10x6/uL (4.00-5.40); RDW 16.8 % (11.5-14.5); WBC 9.1 10x3/uL (4.8-10.8)
[2017-08-09 05:10] LABS: CALC OSMOLALITY 268 mosm/kg (275-300); CALCIUM 7.3 mg/dL (8.5-10.1); CARBON DIOXIDE 33.7 mmol/L (21.0-32.0); CHLORIDE - SERUM 100 mmol/L (98-107); CREATININE - SERUM 0.6 mg/dL (0.6-1.3); MAGNESIUM - SERUM 1.6 mg/dL (1.8-2.4); PLATELET COUNT 465 10x3/uL (130-400); POTASSIUM - SERUM 3.3 mmol/L (3.5-5.1); SODIUM 136 mmol/L (136-145); UREA NITROGEN 9 mg/dL (7-18); eGFR NON AFRICAN AMERICAN > 90 mL/min (90-120)
[2017-08-09 05:19] LABS: GLUCOSE 58 mg/dL (74-106)
[2017-08-09 05:54] LABS: INR 1.18 (0.85-1.17); PROTIME 14.6 SECONDS (11.6-15.0)
--- NOTE | 2017-08-09 06:00 | NUR ---
Changed CVP line and started 1/2 bags of 20 meq of K+.
--- NOTE | 2017-08-09 07:27 | NUR ---
LABS REVIEWED. PT GLUCOSE 58. CHECKED AT BEDSIDE. READING 59. HYPOGLYCEMIA PROTOCOL ORDER ENTERED. HALF AMP D50 GIVEN. PT NPO SINCE MIDNIGHT FOR CT GUIDED THORACENTESIS. DID NOT EAT BUT A FEW BITES AT DINNER TIME YESTERDAY. WILL CONTINUE TO MONITOR AND TREAT ACCORDINGLY.
--- NOTE | 2017-08-09 08:06 | NUR ---
GLUCOSE READING 91.
--- NOTE | 2017-08-09 08:47 | NUR ---
VALDEZ CATHETER REMOVED, TIP INTACT. 1100 CLEAR YELLOW URINE OUT.
--- NOTE | 2017-08-09 08:57 | NUR ---
PT SET UP TO CHAIR BY PHYSICAL THERAPIST. CALL LIGHT IN REACH.
--- NOTE | 2017-08-09 09:06 | NUR ---
FELIPE CALLED. UPDATE PROVIDED. WILL NOT BE COMING TO HOSPITAL TODAY. PLANS TO COME TOMORROW.
--- NOTE | 2017-08-09 09:11 | NUR ---
NUTRITION F/U CHART REVIEWED. PT UP IN CHAIR. NPO FOR PROCEDURE. WILL PROVIDE DIET WHEN RESUMED, MONITOR PO INTAKE. RD FOLLOWING
--- NOTE | 2017-08-09 10:40 | NUR ---
PT RETURNED TO BED BY PHYSICAL THERAPIST. FELT NEED TO URINATE. 250 ML URINE OUT
--- NOTE | 2017-08-09 11:05 | NUR ---
MAGNOLIA DRAIN REMOVED. 15ML PURULENT DRAINAGE FOLLOWED ONCE DRAIN REMOVED. SITE COVERED WITH GAUZE.
--- NOTE | 2017-08-09 11:56 | NUR ---
PT REMAINS NPO. HAVE BEEN NOTIFIED THORACENTESIS NOT UNTIL 2PM.
--- NOTE | 2017-08-09 13:00 | NUR ---
SISTER AT BEDSIDE FOR VISITATION. NOTICED PT BEDDING WAS WET AT HER LAP. PT HAD URINARY ACCIDENT. CLEANED UP AND NEW GOWN AND SHEET PLACED.
[2017-08-09 13:21] LABS: FUNGUS CULTURE RESULT 1 Candida albicans (())
--- NOTE | 2017-08-09 14:01 | NUR ---
WOUND VAC DRESSING CHANGE WOUND TYPE: surgical WOUND LOCATION: midline abdomen MEASUREMENT DATE: 08/09/17 8cm x 3.5cm x 1.5cm (improved) FULL THICKNESS? yes MUSCLE, TENDON OR BONE EXPOSED? no UNDERMINING? no TUNNELING/SINUS? no APPEARANCE OF WOUND BED : pink EXUDATE (AMOUNT, COLOR, ODOR): moderate serosanguinous no odor FOAM TYPE: black # OF PIECES USED: 1 piece -125mmhg low continuous
--- NOTE | 2017-08-09 14:07 | NUR ---
PT OFF FLOOR FOR CT.
--- NOTE | 2017-08-09 15:35 | NUR ---
PT RETURNED TO ROOM FROM IMAGING. IR DRAIN REMOVED, DRESSING CLEAN DRY AND INTACT. DRESSING TO RIGHT UPPER BACK FROM THORACENTESIS CLEAN DRY AND INTACT. O2 2L NC. SCD'S PLACED. PT POSITIONED FOR COMFORT AND PROVIDED WITH ICE WATER AND ICE CREAM SHE REQUESTED. CALL LIGHT IN REACH.
--- NOTE | 2017-08-09 16:34 | NUR ---
PT ASSISTED WITH BEDPAN. THEN SET UP FOR DINNER AND DINNER TRAY PROVIDED. SISTER AT BEDSIDE.
--- NOTE | 2017-08-09 17:35 | NUR ---
PT SLEEPING. NO DISTRESS NOTED. PT HAD 2-3 BITES OF DINNER.
--- NOTE | 2017-08-09 19:05 | NUR ---
PT IN BED AND USED CALL LIGHT TO STATE NEED FOR BEDPAN AND WAS ASSISTED TO BEDPAN. PT INCONTINENT PRIOR TO USE OF BEDPAN BUT PLACE ON BEDPAN WITH 50MLS COLLECTED. PADS CHANGED AND PERICARE PROVIDED. NO CONCERNS MADE KNOWN. CALL LIGHT IN REACH. WILL CONTINUE TO OBSERVE.
[2017-08-09 19:58] LABS: PROTEIN - BODY FLUID 1.2 G/DL
[2017-08-09 21:03] LABS: EOS BF 9 %; MACROPHAGES BF 10 %; MESOTHELIALS BF 4 %; NEUT - BF 9 %
--- NOTE | 2017-08-09 21:16 | NUR ---
PT IN BED AND ASSISTED WITH BEDPAN WITH 275 MLS OUTPUT OF YELLOW URINE. PT WITH NO S/S OF DISTRESS. NO OTHER NEEDS OR CONCERNS NOTED. CALL LIGHT IN REACH. WILL CONTINUE TO OBSERVE.
--- NOTE | 2017-08-09 23:50 | NUR ---
PT ASSISTED WITH BEDPAN WITH 250MLS OUTPUT. COMPLAINS OF NAUSEA WITH PRN ZOFRAN GIVEN. NO OTHER CONCERNS NOTED. CALL LIGHT IN REACH. WILL CONTINUE TO OBSERVE.
[2017-08-10] VITALS (17 sets, daily range): BP systolic 105–117; BP diastolic 60–76
--- NOTE | 2017-08-10 01:15 | NUR ---
PT INCONTINENT OF URINE WITH PADS AND LINENS CHANGED. NO OTHER NEEDS OR CONCERNS NOTED. CALL LIGHT IN REACH. WILL CONTINUE TO OBSERVE.
--- NOTE | 2017-08-10 03:36 | NUR ---
PT USES BEDPAN WITH 100MLS OUTPUT, YELLOW. NO COMPLAINTS OR CONCERNS NOTED. CALL LIGHT IN REACH. WILL CONTINUE TO OBSERVE.
[2017-08-10 04:36] LABS: BASOPHILS 0.2 % (0-2); EOSINOPHILS 2.6 % (0-7); HEMATOCRIT 27.4 % (36.0-48.0); HEMOGLOBIN 8.8 g/dL (12-16); IMMATURE GRANULOCYTES 4.1 % (0-5); LYMPHOCYTES 13.2 % (15-50); MCH 29.8 pg (26.0-34.0); MCHC 32.1 g/dL (31.0-37.0); MCV 92.9 fL (80.0-100.0); MEAN PLATELET VOLUME 9.9 fL (7.4-10.4); MONOCYTES 7.1 % (2-11); NEUTROPHILS 72.8 % (40-80); PLATELET COUNT 486 10x3/uL (130-400); RBC 2.95 10x6/uL (4.00-5.40); RDW 16.5 % (11.5-14.5); WBC 8.1 10x3/uL (4.8-10.8)
[2017-08-10 04:46] LABS: CALCIUM 7.5 mg/dL (8.5-10.1); CARBON DIOXIDE 34.1 mmol/L (21.0-32.0); CHLORIDE - SERUM 102 mmol/L (98-107); CREATININE - SERUM 0.5 mg/dL (0.6-1.3); MAGNESIUM - SERUM 1.7 mg/dL (1.8-2.4); POTASSIUM - SERUM 3.5 mmol/L (3.5-5.1); SODIUM 136 mmol/L (136-145); eGFR NON AFRICAN AMERICAN > 90 mL/min (90-120)
[2017-08-10 04:48] LABS: CALC OSMOLALITY 267 mosm/kg (275-300); GLUCOSE 60 mg/dL (74-106); UREA NITROGEN 6 mg/dL (7-18)
--- NOTE | 2017-08-10 08:39 | NUR ---
PT CLEANED UP FROM URINARY ACCIDENT. REPOSITIONED. ATE 75% OF BOWL OF OATMEAL AND 2 PIECES OF VALDEZ.
--- NOTE | 2017-08-10 10:03 | NUR ---
NUTRITION F/U CHART REVIEWED. NURSING REPORTS PT WITH IMPROVING PO INTAKE. OATMEAL AND VALDEZ THIS AM. WILL CONTINUE TO PROVIDE DIET, MONITOR PT PROGRESS. RD FOLLOWING
--- NOTE | 2017-08-10 10:26 | NUR ---
VASCULAR ACCESS NURSE MARCELO CONTACTED ABOUT NEEDING LINE PLACEMENT. PT C/O NAUSEA. ZOFRAN GIVEN. DR PURCELL BY TO SEE PATIENT. UPDATE PROVIDED. ASKS THAT WHEN NEXT WOUND VAC CHANGE, WANTS REE REMOVED.
--- NOTE | 2017-08-10 11:33 | NUR ---
PT CLEANED UP FROM URINARY ACCIDENT. PARTIAL BEDDING CHANGE.
--- NOTE | 2017-08-10 11:40 | NUR ---
VASCULAR ACCESS NURSE AT BEDSIDE TO PLACE NEW LINE. LSUBCLAVIAN WILL BE REMOVED
--- NOTE | 2017-08-10 12:00 | NUR ---
DR MARCELO ASKING WHEN GOING TO HAVE LEFT THORACENTESIS PERFORMED. NO ORDER FOR. HE ASKED ME TO CALL IMAGING TO FIND OUT BECAUSE HE SAID IN ORDER WAS BILATERAL. RIGHT SIDE PERFORMED 08/09/17.
--- NOTE | 2017-08-10 14:19 | NUR ---
PT SITTING UP ON BEDSIDE COMMODE BY ASSIST FROM PHYSICAL THERAPY. IS SUPPOSED TO GO TO CHAIR TO CONTINUE THERAPY. WANTS TO GO BACK TO BED. TOLD HER SHE NEEDED TO SPEND SOME TIME UP AND IN THE CHAIR, NEEDS TO BE ABLE TO DO MORE TO BE ABLE TO GO TO REHAB. FAMILY AT BEDSIDE FOR THIS CONVERSATION.
--- NOTE | 2017-08-10 14:30 | NUR ---
Order rec'd for inpatient rehab evaluation & transfer - Evaluation complete. Patient has been denied at this time due to being unable to participate in 3 hours of therapy per day. Recommend transfer to floor, work with physical therapy another day or two, then transfer to rehab. CM will follow.
--- NOTE | 2017-08-10 14:35 | NUR ---
PT RETURNED TO BED SHE REQUESTED. THERAPIST SAID HAD TALKED TO [employer] SALES REPRESENTATIVE AND LET HER KNOW PATIENT'S CONDITIONING AND INABILITY TO STAND ON HER OWN. WILL CONTINUE TO WORK WITH HER.
--- NOTE | 2017-08-10 14:53 | NUR ---
LEFT SUBCLAVIAN CENTRAL LINE REMOVED. TIP INTACT. NO BLEEDING. SITE COVERED WITH GAUZE AND TEGADERM.
--- NOTE | 2017-08-10 18:10 | NUR ---
SISTER HAS LEFT FOR THE NIGHT. PT NEEDED BEDPAN. PLACED ON BEDPAN. CALL LIGHT IN REACH.
--- NOTE | 2017-08-10 19:48 | NUR ---
PT IN BED WITH EYES CLOSED AND CHEST RISING. COMPLAINTS OF NAUSEA AT SHIFT CHANGE WITH PRN ZOFRAN GIVEN. PLACED ON BEDPAN PER REQUEST WITH 250MLS OUTPUT YELLOW IN COLOR. NO S/S OF DISTRESS. CALL LIGHT IN REACH. WILL CONTINUE TO OBSERVE.
--- NOTE | 2017-08-10 21:25 | NUR ---
PT WATCHING TV WITH NO S/S OF DISTRESS NOTED. ASSISTED WITH BEDPAN WITH 200MLS OUTPUT YELLOW URINE. MEDICATIONS GIVEN PER MAR AND TOLERATED WELL. NO OTHER CONCERNS NOTED. CALL LIGHT IN REACH. WILL CONTINUE TO OBSERVE.
--- NOTE | 2017-08-10 23:34 | NUR ---
PT IN BED WITH EYES CLOSED AND CHEST RISING. NO S/S OF DISTRESS. ASSISTED WITH BEDPAN WITH 250MLS OUTPUT. NO CONCERNS MADE KNOWN. CALL LIGHT IN REACH. WILL CONTINUE TO OBSERVE.
[2017-08-11] VITALS (17 sets, daily range): BP systolic 87–116; BP diastolic 60–78
--- NOTE | 2017-08-11 01:25 | NUR ---
PT IN BED WITH EYES CLOSED AND CHEST RISING AT THIS TIME. NO S/S OF DISTRESS. CALL LIGHT IN REACH. WILL CONTINUE TO OBSERVE.
--- NOTE | 2017-08-11 03:18 | NUR ---
PT IN BED WITH EYES CLOSED AND CHEST RISING. NO CONCERNS NOTED. ASSISTED TO BEDPAN WITH 200MLS YELLOW OUTPUT. CALL LIGHT IN REACH. WILL CONTINUE TO OBSERVE.
[2017-08-11 04:36] LABS: BASOPHILS 0.2 % (0-2); EOSINOPHILS 2.5 % (0-7); HEMATOCRIT 29.2 % (36.0-48.0); HEMOGLOBIN 9.2 g/dL (12-16); IMMATURE GRANULOCYTES 2.9 % (0-5); LYMPHOCYTES 13.5 % (15-50); MCH 29.3 pg (26.0-34.0); MCHC 31.5 g/dL (31.0-37.0); MEAN PLATELET VOLUME 9.9 fL (7.4-10.4); MONOCYTES 9.4 % (2-11); NEUTROPHILS 71.5 % (40-80); PLATELET COUNT 503 10x3/uL (130-400); RBC 3.14 10x6/uL (4.00-5.40); RDW 16.3 % (11.5-14.5); WBC 8.3 10x3/uL (4.8-10.8)
[2017-08-11 04:48] LABS: CALCIUM 7.7 mg/dL (8.5-10.1); CHLORIDE - SERUM 102 mmol/L (98-107); CREATININE - SERUM 0.6 mg/dL (0.6-1.3); MAGNESIUM - SERUM 1.6 mg/dL (1.8-2.4); POTASSIUM - SERUM 3.6 mmol/L (3.5-5.1); SODIUM 137 mmol/L (136-145); eGFR NON AFRICAN AMERICAN > 90 mL/min (90-120)
[2017-08-11 04:49] LABS: CALC OSMOLALITY 268 mosm/kg (275-300); GLUCOSE 70 mg/dL (74-106); UREA NITROGEN 4 mg/dL (7-18)
--- NOTE | 2017-08-11 06:51 | NUR ---
PT IN BED WITH EYES OPEN WATCHING TV. ELECTROLYTE PROTOCOL MAG 1.6 WITH 2GM IV MAG GIVEN. ASSISTED WITH BEDPAN WITH 2OOML YELLOW OUTPUT. NO CONCERNS NOTED. CALL LIGHT IN REACH. WILL CONTINUE TO OBSERVE.
[2017-08-11 08:46] LABS: APTT 42.8 SECONDS (22.8-39.4); INR 1.09 (0.85-1.17); PROTIME 13.7 SECONDS (11.6-15.0)
--- NOTE | 2017-08-11 10:02 | NUR ---
Visited with patient yesterday regarding the inpatient rehab referral. She wants to be able to participate in the 3 hrs daily required therapy, but does not feel she can at this time. She has only been lifted to a chair by PT and has not even tried to stand. Spoke to the charge nurse Michelle Houser in ICU re the need to advance her therapy. She voices understanding and will talk with PT. She certainly meets criteria for IRF when she is able to participate in the therapy. Rehab will follow. Nata Hartman RN Clinical Liaison, Rehab
--- NOTE | 2017-08-11 10:20 | NUR ---
COLOSTOMY WAFER AND SET UP CHANGED OUT. PT TO RADIOLOGY FOR THORACENTISIS.
--- NOTE | 2017-08-11 11:30 | NUR ---
RETURNED FROM RADIOLOGY. VSS.
[2017-08-11 13:17] LABS: PROTEIN - BODY FLUID 1.7 G/DL
[2017-08-11 14:19] LABS: FUNGUS STAIN Final report (())
--- NOTE | 2017-08-11 14:35 | NUR ---
Wound vac dressing change with gayla removed from midline abdominal incision. 8 gayla removed. Steristrips applied. No changes in measurements / wound vac dressing change. 1 piece black foam used. Pt tolerated well.
[2017-08-11 16:11] LABS: AFB SPECIMEN PROCESSING Not Indicated (())
--- NOTE | 2017-08-11 18:21 | NUR ---
REPORT GIVEN TO NOEL STODDARD.
--- NOTE | 2017-08-11 18:22 | NUR ---
NOTIFIED OF ROOM TRANSFER. PT TO TRANSFER TO 2224.
--- NOTE | 2017-08-11 19:00 | NUR ---
PT ARRIVED ON UNIT VIA BED ESCORTED BY 2 ICU NURSES. RIGHT MIDLINE IV SALINE LOCKED. O2 VIA NC AT 2L. WOUND VAC ON LOWER ABDOMEN. COLOSTOMY ON LEFT ABDOMEN. HEALING MIDLINE ABDOMINAL INCISION. PLACED SCD'S ON PT PER ORDER. 1ST STEP AIR MATTRESS OVERLAY IN USE. WILL MONITOR CLOSLEY FOR NEEDS. CALL LIGHT WITHIN REACH.
--- NOTE | 2017-08-11 19:10 | NUR ---
TRANSFERRED TO ROOM 2224 VIA BED WITH ALL BELONGINGS. MET IN ROOM BY ROD MILL TENDER NURSE NOEMY STODDARD. BEDSIDE REPORT GIVEN TO NOEMY STODDARD.
--- NOTE | 2017-08-11 21:50 | NUR ---
HS MEDICATIONS GIVEN. WILL CONTINUE TO MONITOR FOR NEEDS.
--- NOTE | 2017-08-11 23:20 | NUR ---
PAGED DR PURCELL PER PT REQUEST FOR PAIN MEDICATION. ORDERS RECEIVED FOR TYLENOL 650 PO Q4 PRN , AND NORCO 5/325 Q4 HR PRN PAIN.
--- NOTE | 2017-08-11 23:35 | NUR ---
GAVE TYLENOL 650 PO PER PRN ORDER, PER PT REQUEST FOR PAIN. WILL MONITOR FOR EFFECTIVENESS.
--- NOTE | 2017-08-12 00:23 | NUR ---
PT STILL C/P PAIN AT LEVEL 5/10. GAVE NORCO 5/325 PO PER REQUEST, PER PRN ORDER. WILL MONITOR FOR EFFECTIVENESS. CALL LIGHT WITHIN REACH.
--- NOTE | 2017-08-12 03:45 | NUR ---
ASSISTED PT TO USE BEDPAN. WILL CONTINUE TO MONITOR FOR NEEDS.
[2017-08-12 04:00] VITALS: BP 110/66
--- NOTE | 2017-08-12 06:40 | NUR ---
ASSISTED PT TO USE BEDPAN. CHANGED PADS ON BED. WILL CONTINUE TO MONITOR FOR NEEDS.
[2017-08-12 06:47] LABS: BASOPHILS 0.4 % (0-2); EOSINOPHILS 3.6 % (0-7); HEMATOCRIT 29.2 % (36.0-48.0); HEMOGLOBIN 9.4 g/dL (12-16); IMMATURE GRANULOCYTES 4.2 % (0-5); LYMPHOCYTES 16.9 % (15-50); MCH 29.8 pg (26.0-34.0); MCHC 32.2 g/dL (31.0-37.0); MCV 92.7 fL (80.0-100.0); MEAN PLATELET VOLUME 9.8 fL (7.4-10.4); MONOCYTES 9.7 % (2-11); NEUTROPHILS 65.2 % (40-80); PLATELET COUNT 568 10x3/uL (130-400); RBC 3.15 10x6/uL (4.00-5.40); RDW 16.3 % (11.5-14.5); WBC 7.9 10x3/uL (4.8-10.8)
[2017-08-12 07:16] LABS: CALC OSMOLALITY 264 mosm/kg (275-300); CARBON DIOXIDE 31.9 mmol/L (21.0-32.0); CHLORIDE - SERUM 98 mmol/L (98-107); CREATININE - SERUM 0.5 mg/dL (0.6-1.3); MAGNESIUM - SERUM 1.5 mg/dL (1.8-2.4); POTASSIUM - SERUM 3.1 mmol/L (3.5-5.1); SODIUM 135 mmol/L (136-145); UREA NITROGEN 4 mg/dL (7-18); eGFR NON AFRICAN AMERICAN > 90 mL/min (90-120)
--- NOTE | 2017-08-12 07:20 | NUR ---
REPORT RECEIVED FROM REJECT OPENER AND FILLER NURSE. CALL LIGHT IN REACH.
[2017-08-12 07:21] LABS: GLUCOSE 65 mg/dL (74-106)
[2017-08-12 07:47] VITALS: BP 105/65
--- NOTE | 2017-08-12 08:22 | NUR ---
PATIENT SITTING UP IN BED WITH NO COMPLAINTS AT THIS TIME. IV INTACT. CALL LIGHT WITHIN REACH.
--- NOTE | 2017-08-12 09:00 | NUR ---
ASSESSMENT COMPLETED. SCDs TO BLE. BED ALARM ON. CALL LIGHT IN REACH. WILL CONTINUE WITH PLAN OF CARE.
--- NOTE | 2017-08-12 10:49 | NUR ---
AM MEDS ADMINISTERED. CALL LIGHT IN REACH.
[2017-08-12 12:15] VITALS: BP 107/67
--- NOTE | 2017-08-12 12:15 | NUR ---
NO NEEDS VOICED AT THIS TIME. CALL LIGHT IN REACH.
--- NOTE | 2017-08-12 13:53 | NUR ---
NORCO PO PER C/O PAIN OF 6 TO ABDOMEN. CALL LIGHT IN REACH.
--- NOTE | 2017-08-12 14:00 | NUR ---
DR. PURCELL IN ROOM TO SEE PATIENT.
[2017-08-12 15:35] VITALS: BP 102/62
--- NOTE | 2017-08-12 16:00 | NUR ---
RESTING WITH EYES CLOSED. RESP EVEN AND UNLABORED. CALL LIGHT IN REACH.
--- NOTE | 2017-08-12 17:00 | NUR ---
TEMP 103.3 TEMPORAL, HR 181, RESP 52, O2 SAT 89% ON ROOM AIR. O2 PLACED @ 0.5L PER NC WHICH BROUGHT O2 SAT UP TO 93-94%. INCREASED TO 0.75L PER NC. IBUPROFEN 127MG PO. ELEVATED IN BED WITH 2 PILLOWS. O2 SAT 96% AT THIS TIME. WILL CONTINUE TO MONITOR. CALL LIGHT IN REACH.
--- NOTE | 2017-08-12 17:07 | NUR ---
POTASSIUM AND TORADOL AND SYNTHROID ADMINISTERED. STATES PAIN IS DOWN TO A 2. CALL LIGHT IN REACH.
--- NOTE | 2017-08-12 19:00 | NUR ---
REPORT RECEIVED AND CARE OF PT ASSUMED. RIGHT MIDLINE SALINE LOCKED. O2 IN USE VIA NC AT 2L. WOUND VAC ON LOWER ABDOMEN WELL COMPRESSED WITH NO LEAKAGE ALARMS. COLOSTOMY PATENT, STOMA PINK, WITH SOFT BROWN STOOL IN COLLECTION BAG. 1ST STEP AIR MATTRESS OVERLAY IN USE. SCD'S IN PLACE ON BLE. WILL MONITOR CLOSLEY FOR NEEDS.
[2017-08-12 19:08] LABS: AFB SPECIMEN PROCESSING Not Indicated (())
--- NOTE | 2017-08-12 19:25 | NUR ---
NO CHANGES IN INITIAL ASSESSMENT. CALL LIGHT IN REACH. SCDs TO BLE. BED ALARM ON. WILL CONTINUE WITH PLAN OF CARE.
--- NOTE | 2017-08-12 19:30 | NUR ---
EMPTIED 200 ML OF SOFT BROWN STOOL FROM COLOSTOMY BAG.
[2017-08-12 20:00] VITALS: BP 104/64
--- NOTE | 2017-08-12 21:57 | NUR ---
HS MEDICATIONS GIVEN. WILL CONTINUE TO MONITOR FOR NEEDS. CALL LIGHT WITHIN REACH.
[2017-08-13] VITALS: BP 99/51
--- NOTE | 2017-08-13 01:10 | NUR ---
PT RESTING QUIETLY IN LOW THURSTON'S POSITION WITH UNLABORED BREATHING. SIDE RAILS UP X2 FOR SAFETY. CALL LIGHT WITHIN REACH.
--- NOTE | 2017-08-13 02:50 | NUR ---
ASSISTED PT TO USE BEDPAN. CHANGED ALL LINENS AND GOWN DUE TO INCONTINENCE EPISODE PRIOR. POSITIONED FOR COMFORT. WILL CONTINUE TO MONITOR FOR NEEDS.
[2017-08-13 04:00] VITALS: BP 98/59
--- NOTE | 2017-08-13 07:20 | NUR ---
REPORT RECEIVED FROM PEDIATRIC PHYSICIAN ASSISTANT NURSE. CALL LIGHT IN REACH.
[2017-08-13 08:49] VITALS: BP 98/63
--- NOTE | 2017-08-13 09:30 | NUR ---
ASSESSMENT COMPLETED. SCDs TO BLE. BED ALARM ON. TO CHAIR PER PT. CALL LIGHT IN REACH. WILL CONTINUE WITH PLAN OF CARE.
--- NOTE | 2017-08-13 11:10 | NUR ---
AM MEDS ADMINISTERED. TAQUERIA LOPES CALL LIGHT IN REACH.
[2017-08-13 11:44] VITALS: BP 89/61
--- NOTE | 2017-08-13 12:20 | NUR ---
PLACED BEDPAN UNDER PATIENT WHILE IN CHAIR WITH ASSISTANCE FROM ANOTHER NURSE AND A POINT OF SALE ASSOCIATE. AFTER PATIENT WAS FINISHED VOIDING, WE PLACED HER BACK IN THE BED AND REPOSITIONED FOR COMFORT. BED ALARM ON. SCDs BACK ON. CALL LIGHT IN REACH.
--- NOTE | 2017-08-13 14:57 | NUR ---
IV TORADOL PER SCHEDULE. REPOSITIONED FOR COMFORT. CALL LIGHT IN REACH.
--- NOTE | 2017-08-13 15:15 | NUR ---
PATIENT REPOSITIONED IN BED X 2 ASSIST. NO COMPLAINTS OR PROBLEMS. IV INTACT. CALL LIGHT WITHIN REACH.
[2017-08-13 16:20] VITALS: BP 98/61
--- NOTE | 2017-08-13 16:21 | NUR ---
STATES PAIN IS STILL A 6 AND IS NOW REQUESTING PAIN PILL. ADMINISTERED PER ORDER. ASKING TO GO AHEAD AND TAKE ROBITUSSIN. EXPLAINED TO PATIENT THAT IT IS NOT DUE UNTIL 6 SO THE EARLIEST I CAN GIVE IT IS 5. VERBALIZED UNDERSTANDING.
--- NOTE | 2017-08-13 18:19 | NUR ---
WIL PO. NO CHANGES IN INITIAL ASSESSMENT. SCDs TO BLE. BED ALARM ON. CALL LIGHT IN REACH. WILL CONTINUE WITH PLAN OF CARE.
--- NOTE | 2017-08-13 19:00 | NUR ---
REPORT RECEIVD AND CARE OF PT ASSUMED. PT LYING IN SUPINE POSITION ON 1ST STEP AIR MATTRESS OVERLAY. RIGHT MIDLINE IV SALINE LOCKED. SCD'S IN PLACE ON BLE. WOUND VAC ON LOWER ABDOMEN WELL COMPRESSED WITH NO LEAKAGE ALARMS. COLOSTOMY PATENT, STOMA PINK, WITH SMALL AMOUNT OF SOFT BROWN STOOL IN COLLECTION BAG. WILL MONITOR FOR NEEDS. CALL LIGHT WITHIN REACH.
[2017-08-13 20:00] VITALS: BP 103/56
--- NOTE | 2017-08-13 21:30 | NUR ---
HS MEDICAITONS GIVEN. WILL CONTINUE TO MONITOR FOR NEEDS.
--- NOTE | 2017-08-13 22:05 | NUR ---
PT ASSISTED TO USE BEDPAN. PAD CHANGED. WILL CONTINUE TO MONITOR FOR NEEDS.
[2017-08-14] VITALS: BP 106/62
--- NOTE | 2017-08-14 01:27 | NUR ---
PT RESTING QUIETLY IN SUPINE POSITION WITH EYES CLOSED AND EASY RESPIRATIONS. SIDE RAILS UP X2 FOR SAFETY.
[2017-08-14 04:55] LABS: BASOPHILS 0.5 % (0-2); EOSINOPHILS 2.7 % (0-7); HEMATOCRIT 28.6 % (36.0-48.0); HEMOGLOBIN 9.1 g/dL (12-16); IMMATURE GRANULOCYTES 3.9 % (0-5); LYMPHOCYTES 13.2 % (15-50); MCH 29.9 pg (26.0-34.0); MCHC 31.8 g/dL (31.0-37.0); MCV 94.1 fL (80.0-100.0); MEAN PLATELET VOLUME 9.5 fL (7.4-10.4); MONOCYTES 10.2 % (2-11); NEUTROPHILS 69.5 % (40-80); PLATELET COUNT 557 10x3/uL (130-400); RBC 3.04 10x6/uL (4.00-5.40); RDW 16.1 % (11.5-14.5); WBC 8.3 10x3/uL (4.8-10.8)
[2017-08-14 05:00] VITALS: BP 110/62
[2017-08-14 05:15] LABS: ALBUMIN 1.2 g/dL (3.4-5.0); ALKALINE PHOSPHATASE 191 U/L (46-116); ALT (SGPT) 17 U/L (10-68); CALCIUM 8.4 mg/dL (8.5-10.1); CARBON DIOXIDE 33.1 mmol/L (21.0-32.0); CHLORIDE - SERUM 100 mmol/L (98-107); GLUCOSE 97 mg/dL (74-106); POTASSIUM - SERUM 3.9 mmol/L (3.5-5.1); PROTEIN - SERUM 4.8 g/dL (6.4-8.2); SODIUM 137 mmol/L (136-145); eGFR NON AFRICAN AMERICAN 89 mL/min (90-120)
[2017-08-14 05:18] LABS: CALC OSMOLALITY 271 mosm/kg (275-300); CREATININE - SERUM 0.7 mg/dL (0.6-1.3); UREA NITROGEN 8 mg/dL (7-18)
--- NOTE | 2017-08-14 08:00 | NUR ---
SLEEPING ,WITHOUT SIGNS OF DISTRESS.
[2017-08-14 09:10] VITALS: BP 105/64
[2017-08-14 10:11] LABS: FUNGUS STAIN Final report (())
[2017-08-14 13:10] VITALS: BP 88/55
--- NOTE | 2017-08-14 13:36 | NUR ---
WOUND VAC DRESSING CHANGE WOUND TYPE: SURGICAL WOUND LOCATION: MIDLINE ABDOMEN MEASUREMENT DATE: 08/14/17 10CM X 3CM X 1CM FULL THICKNESS? YES MUSCLE, TENDON OR BONE EXPOSED? NO UNDERMINING? NO TUNNELING/SINUS? NO APPEARANCE OF WOUND BED : PALE PINK EXUDATE (AMOUNT, COLOR, ODOR): SMALL SEROUS NO ODOR FOAM TYPE: BLACK # OF PIECES USED: 1 PIECE EDUCATION: DRESSING CHANGES/PT VOICED UNDERSTANDING
--- NOTE | 2017-08-14 13:58 | NUR ---
NO C/O NOTED OR VOICED AT THIS TIME BACK TO BED WITH NO DISTRESS NOTED. C/L IN REACH AT BEDSIDE.
--- NOTE | 2017-08-14 14:50 | NUR ---
NUTRITION F/U CHART REVIEWED. PT VISIT. TOLERATING REG DIET. GOOD INTAKE BREAKFAST. VERY LITTLE LUNCH. NOTE POSSIBLE REHAB TOMORROW. RD FOLLOWING
[2017-08-14 16:29] VITALS: BP 102/69
--- NOTE | 2017-08-14 20:00 | NUR ---
ASSESSMENT PER FLOWSHEET. IV PATENT RT AC MIDLINE SITE. SALINE LOCKED. O2 ON 2L/M PER NC PRODUCTIVE COUGH CLEAR SPUTUM. PT ON FIRST STEP AIR BED. MIDLINE ABDOMINAL INCISION C/D/I WITH WOUND VAC IN PLACE.
--- NOTE | 2017-08-14 21:30 | NUR ---
MEDS GIVEN W[place] MAR.
[2017-08-14 23:00] VITALS: BP 98/57
--- NOTE | 2017-08-15 | NUR ---
EYES CLOSED RESPIRATIONS WITH EASE AND UNLABORED.
--- NOTE | 2017-08-15 02:30 | NUR ---
MEDS GIVEN PER OCT. BEDSIDE UPDRAFT TX GIVEN PER RT TECH.
--- NOTE | 2017-08-15 04:00 | NUR ---
VOIDED ONBEDPAN RESTING QUIETLY. DENIES NEEDS.
[2017-08-15 05:00] VITALS: BP 102/55
--- NOTE | 2017-08-15 06:00 | NUR ---
NO CHANGES IN ASSESSMENT.
[2017-08-15 06:02] LABS: ALBUMIN 1.2 g/dL (3.4-5.0); ALKALINE PHOSPHATASE 195 U/L (46-116); ALT (SGPT) 16 U/L (10-68); CALC OSMOLALITY 270 mosm/kg (275-300); CALCIUM 8.6 mg/dL (8.5-10.1); CARBON DIOXIDE 32.9 mmol/L (21.0-32.0); CHLORIDE - SERUM 100 mmol/L (98-107); CREATININE - SERUM 0.6 mg/dL (0.6-1.3); GLUCOSE 89 mg/dL (74-106); POTASSIUM - SERUM 3.7 mmol/L (3.5-5.1); SODIUM 137 mmol/L (136-145); UREA NITROGEN 8 mg/dL (7-18); eGFR NON AFRICAN AMERICAN > 90 mL/min (90-120)
[2017-08-15 08:05] VITALS: BP 108/69
--- NOTE | 2017-08-15 08:15 | NUR ---
PT RESTING IN BED WITH EYES OPEN EATING BREAKFAST CALL LIGHT IN REACH NO PROBLEMS WILL MONITER
--- NOTE | 2017-08-15 09:55 | NUR ---
PATIENT BEING DISCHARGED TO INPATIENT REHAB TODAY. IMM SERVED
--- NOTE | 2017-08-15 16:15 | NUR ---
LYING IN BED,WITHOUT DISTRESS.READY FOR TRANSPORT TO REHAB
--- NOTE | 2017-08-15 16:50 | NUR ---
PT DISCHARGED TO REHAB REPORT CALLED TO HAIDER SOTO RN PT EXPLAINED DISCHARGE SUMMARY AND MEDS IN BED TOLERATED WELL
[2017-08-16 09:16] LABS: FUNGUS MYCOLOGY CULTURE Final report (())
[2017-08-30 08:15] LABS: FUNGUS MYCOLOGY CULTURE Final report (())
[2017-09-08 12:18] LABS: ACID FAST CULTURE Negative (()); ACID FAST SMEAR Negative (())
[2017-09-08 15:20] LABS: FUNGUS MYCOLOGY CULTURE Final report (())
[2017-09-08 15:20] LABS: FUNGUS MYCOLOGY CULTURE Final report (())
--- NOTE | 2017-09-15 09:56 | DS ---
PATIENT:MARCELO PATTERSON :51 MEDICAL RECORD: [id number] DISCHARGE SUMMARY ADMISSION DATE: 07/13/17 DISCHARGE DATE: 08/15/17 DATE OF ADMISSION: 07/14/2017 DATE OF DISCHARGE: 08/15/2017 ADMISSION DIAGNOSES: 1. Perforated viscus. 2. Sepsis. 3. Peritonitis. 4. Bacteremia. 5. Asthma. 6. Chronic obstructive pulmonary disease. 7. Nicotine dependence syndrome. DISCHARGE DIAGNOSES: 1. Perforated viscus. 2. Sepsis. 3. Peritonitis. 4. Bacteremia. 5. Asthma. 6. Chronic obstructive pulmonary disease. 7. Nicotine dependence syndrome. 8. Critical illness myopathy. 9. Septic shock. 10. Candidal peritonitis. 11. Anemia of acute blood loss. 12. Stenotrophomonas pneumonia. PROCEDURES: 1. Exploratory laparotomy with lysis of adhesions, sigmoid colectomy and colostomy and (Jordan's procedure on 07/14/2017). 2. Drainage of right lower quadrant abscess on 07/27/2017. 3. Right CT-guided thoracentesis on 08/09/2017. 4. Left thoracentesis on 08/11/2017. 5. Midline placement on 08/10/2017. CONSULTATIONS: Infectious disease, interventional radiology, anesthesia, and pulmonary. REPORT OF HOSPITALIZATION: The patient was admitted to the hospital through the ER with signs of peritonitis and sepsis with perforated viscus, which appeared to be related to severe constipation. The patient was taken to the operating room after IV antibiotics were instilled and she underwent an exploratory laparotomy with washout and Ojrdan's procedure. The patient had gross contamination with fecal peritonitis. Postoperatively, the patient was quite ill in the ICU with septic shock. The patient was on pressors and the ventilator. We were able to fairly quickly get her off the pressors, but she remained on the ventilator. The patient had a history of lung disease which made this difficult. Eventually, we started having ostomy output and we were able to start the patient on tube feeds. The patient was able to be extubated, but continued to have some breathing difficulties which required her to be placed on BiPAP. She had some drainage from her abdominal wound and this was DISCHARGE SUMMARY REPORT [id number] MARCELO APTTERSON opened up revealing some purulent material. She had drains placed intraoperatively in the bilateral lower quadrants and these were putting out purulent type material. Eventually, we repeated a CT scan that showed a large fluid collection. CT-guided drainage was performed of this, there was concern that this may actually be tube feeds. I did not have as much concern as this was the same colored material that had been coming out since immediately postoperatively. The tube feeds were held for a little while and then restarted. The patient tolerated the tube feeds, but unfortunately had to be placed back on the ventilator due to respiratory issues. She remained back on the ventilator for quite a while, but overall had improvement in her status. She was noted on her cultures to have Mirta in her abdominal wound and she had Stenotrophomonas in her bronchial washings. The patient had bilateral large pleural effusions. These were both drained with CT-guided thoracentesis and we were eventually able to get her back off the ventilator. At this point, she actually was doing quite well. She was able to be started on a diet after a swallow study showed that she was not aspirating. Her fevers resolved. Her breathing improved significantly. She was off pressors. Her white blood cell count had normalized on Unasyn. She had been on Bactrim for the Stenotrophomonas and it was on Diflucan for the Mirta peritonitis. She did have some anemia from the multiple blood draws and from just normal postoperative care. She did require blood transfusions. Eventually, she began to get up out of bed and was able to be transferred down to rehab for further care. DISCHARGE INSTRUCTIONS: 1. Continue antibiotics and antifungals. 2. Increase activity and rehabilitation. 3. The patient had a wound VAC placed in the lower abdomen and this was to be changed on Monday, Monday, and Fridays. TRANSINT:[id number] Voice Confirmation ID: [id number] DOCUMENT ID: [id number] CALLUM PURCELL MD at 0956 CC: [id number] DICTATION DATE: 08/31/17 1240 NEUROLOGY HOSPITALIST: 09/01/17 0007 DIS IN 08/15/17 [id number] [place] [address]
[2017-09-18 17:12] LABS: ACID FAST CULTURE Negative (()); ACID FAST SMEAR Negative (())
[2017-09-27 11:18] LABS: ACID FAST CULTURE Negative (()); ACID FAST SMEAR Negative (())
[2017-09-29 13:17] LABS: ACID FAST CULTURE Negative (()); ACID FAST SMEAR Negative (())
== END 2017-08-15 16:51 | DRG 853 ==
LOC: D.ER 13:24 → D.ICU 17:30 → D.MS 17:30 → D.ICU 07-14 12:35 → D.MS 08-11 19:37
PROVIDERS: Family Medicine; General Practice; Internal Medicine Pulmonary Disease; Radiology Diagnostic Radiology; Specialist; Surgery; ADMIT Surgery
PROC: 0DBN0ZZ Excision of Sigmoid Colon, Open Approach (ICD-10-PCS; 2017-07-14)
PROC: 0DBP0ZZ Excision of Rectum, Open Approach (ICD-10-PCS; 2017-07-14)
PROC: 0D1N0Z4 Bypass Sigmoid Colon to Cutaneous, Open Approach (ICD-10-PCS; 2017-07-14)
PROC: 5A1955Z Respiratory Ventilation, Greater than 96 Consecutive Hours (ICD-10-PCS; principal; 2017-07-14 09:30)
PROC: 0BH17EZ Insertion of Endotracheal Airway into Trachea, Via Natural or Artificial Opening (ICD-10-PCS; 2017-07-14 09:30)
PROC: 05H633Z Insertion of Infusion Device into Left Subclavian Vein, Percutaneous Approach (ICD-10-PCS; 2017-07-14 09:30)
PROC: 0DNW0ZZ Release Peritoneum, Open Approach (ICD-10-PCS; 2017-07-14 09:30)
PROC: 0B978ZZ Drainage of Left Main Bronchus, Via Natural or Artificial Opening Endoscopic (ICD-10-PCS; 2017-07-19)
PROC: 0B938ZZ Drainage of Right Main Bronchus, Via Natural or Artificial Opening Endoscopic (ICD-10-PCS; 2017-07-19)
PROC: 0BH17EZ Insertion of Endotracheal Airway into Trachea, Via Natural or Artificial Opening (ICD-10-PCS; 2017-07-24)
PROC: 5A1955Z Respiratory Ventilation, Greater than 96 Consecutive Hours (ICD-10-PCS; 2017-07-24)
PROC: 0W9G30Z Drainage of Peritoneal Cavity with Drainage Device, Percutaneous Approach (ICD-10-PCS; 2017-07-27)
PROC: 0B978ZZ Drainage of Left Main Bronchus, Via Natural or Artificial Opening Endoscopic (ICD-10-PCS; 2017-08-02)
PROC: 0B938ZZ Drainage of Right Main Bronchus, Via Natural or Artificial Opening Endoscopic (ICD-10-PCS; 2017-08-02)
PROC: 0W9B3ZZ Drainage of Left Pleural Cavity, Percutaneous Approach (ICD-10-PCS; 2017-08-09)
PROC: 05HB33Z Insertion of Infusion Device into Right Basilic Vein, Percutaneous Approach (ICD-10-PCS; 2017-08-10)
PROC: B54MZZA Ultrasonography of Right Upper Extremity Veins, Guidance (ICD-10-PCS; 2017-08-10)
PROC: 0W993ZZ Drainage of Right Pleural Cavity, Percutaneous Approach (ICD-10-PCS; 2017-08-11)
DX: A41.9 Sepsis, unspecified organism (principal); K63.1 Perforation of intestine (nontraumatic); R65.21 Severe sepsis with septic shock; J96.21 Acute and chronic respiratory failure with hypoxia; J96.22 Acute and chronic respiratory failure with hypercapnia; J15.1 Pneumonia due to Pseudomonas; T81.4XXA Infection following a procedure, initial encounter; J45.901 Unspecified asthma with (acute) exacerbation; F17.203 Nicotine dependence unspecified, with withdrawal; I50.22 Chronic systolic (congestive) heart failure; E87.1 Hypo-osmolality and hyponatremia; E87.2 Acidosis; J44.9 Chronic obstructive pulmonary disease, unspecified; E03.9 Hypothyroidism, unspecified; E88.09 Other disorders of plasma-protein metabolism, not elsewhere classified; R00.0 Tachycardia, unspecified; D69.6 Thrombocytopenia, unspecified; F32.9 Major depressive disorder, single episode, unspecified; N73.6 Female pelvic peritoneal adhesions (postinfective); K66.0 Peritoneal adhesions (postprocedural) (postinfection)

== ENCOUNTER 2017-08-15 16:41 | Inpatient (IN) | payer MEDICARE, BC ==
[~2017-08-15] VITALS: Ht 162.6 cm; Wt 55.3 kg
--- NOTE | ~2017-08-15 | RHP ---
PATIENT: MARCELO PATTERSON MEDICAL RECORD: [id number] ACCOUNT: [id number] LOCATION:[facility]1115 : 51 ADMISSION DATE: 08/15/17 REHABILITATION HISTORY AND PHYSICAL EXAMINATION POST ADMISSION PHYSICIAN EXAMINATION DATE OF ADMISSION TO THE REHAB: 08/15/2017. ADMITTING DIAGNOSIS: Critical illness myopathy. HISTORY OF PRESENT ILLNESS: The patient admitted to inpatient rehab for a neurological condition, critical illness myopathy. She is a 62-year-old female patient who presented with severe abdominal pain and nausea for less than 24 hours prior to admission on 07/13. She complained of constipation, been using multiple laxatives, pain was worse in lower abdomen. She had a history of COPD, asthma, pneumonia, strep pneumoniae with methicillin-sensitive Staphylococcus in May, sinusitis, hypothyroidism, depression was admitted for abdominal pain with CT of the abdomen on 07/13 showing marked distention of the entire colon with fecal material consistent with severe constipation or impaction and a small volume of free air present with the patient underwent emergent exploratory lap with lysis of adhesions, sigmoid colectomy, colostomy and peritonitis. Postop, the patient was on a ventilator. She was weaned and had to be reintubated due to hypercapnic respiratory failure. She is now out of the ICU and on 3 liters O2 via nasal cannula. She has had an extended acute hospitalization including an abscess drainage, thoracentesis times 2 for increased pleural effusion. She now has a colostomy and a wound VAC to her abdomen and surgical incision. She is being followed by pulmonary, infectious disease and also interventional radiology during her hospitalization. She feels she is slowly getting stronger with proximal weakness noted with difficulty getting up from bed to chair. She lived at home with her and was independent with ADLs and mobility prior to this hospitalization. She is currently max assist to total assist for mobility and is sit up total assist for her ADLs. Plan is to return home at her prior level of function. COMORBIDITIES: In this patient include chronic heart failure, COPD, dysphagia, severe sepsis, oropharyngeal dysphagia, speech disturbance, leukocytosis, intestinal perforation, COPD, nicotine dependence, bacteremia, peritonitis, sepsis, critical illness myopathy, status post exploratory lap with Jordan's procedure, septic shock, anemia, insomnia, hypothyroidism, hypoalbuminemia, debility, respiratory failure, atelectasis. PAST MEDICAL HISTORY: Significant for sinus problems, thyroid problems, COPD, emphysema, asthma, depression, CHF, kidney stones, chronic back pain, eczema and tobacco use. PAST SURGICAL HISTORY: Includes appendectomy, tonsillectomy and adenoidectomy, hysterectomy and then the surgery she has had done here in the hospital. ALLERGIES: IODINE, SULFA, TRIMETHOPRIM AND AVELOX. CURRENT MEDICATIONS: Include Synthroid 125 mcg daily, Floranex 460 mg daily, aspirin 81 mg daily, DuoNeb updrafts q.i.d. p.r.n. She is on trazodone 300 mg at bedtime, Singulair 10 mg at bedtime, [place] 1 tab q.6 hours p.r.n., Mucinex-D 1 tab b.i.d., estrogen 0.3 mg at bedtime, Tessalon Perles 100 mg t.i.d., Tylenol 500 mg at bedtime and polyethylene glycol 17 grams in 8 ounces of water daily. HISTORY AND PHYSICAL [id number] LEONARDOMARCELO S HABITS: Does have a history of tobacco use. FAMILY HISTORY: Noncontributory. SOCIAL HISTORY: The patient hopes to return back home with her and get back to her prior level of functioning. REVIEW OF SYSTEMS: GENERAL: Does complain of weakness and fatigue. HEENT: Denies cold, cough, or congestion. CARDIOVASCULAR: Denies chest pain. LUNGS: Denies any shortness of breath. PHYSICAL EXAMINATION: VITAL SIGNS: Stable, afebrile. GENERAL: A thin female in no acute distress, alert upon exam. HEENT: Normocephalic and atraumatic. Oral mucosa moist. NECK: Supple. No lymphadenopathy. LUNGS: Clear at this time. HEART: Regular rate and rhythm. ABDOMEN: Does have a colostomy and wound VAC in place. EXTREMITIES: No clubbing, cyanosis, or edema. NEUROLOGIC: Intact. LABORATORY DATA: White count is 9.8, H&H of 9.5 and 30.9, platelet count was noted to be 597. Sodium is 136, potassium is 4.1, BUN and creatinine of 7 and 0.5 and blood sugar was noted to be 80. ASSESSMENT: This is a 62-year-old female patient admitted to rehab with a working diagnosis of critical illness myopathy. The patient has potential to make improvement. We instituted the following multidisciplinary therapies including to, but not limited to physical, occupational, respiratory, speech, nutritional services, prosthetics and orthotics. Given her complex condition and risk, complications, rehabilitation services cannot be provided at a lower level of care such as a fpc facility. PLAN: 1. Admit to [facility] rehab for intensive inpatient therapy to include the following disciplines: HISTORY AND PHYSICAL [id number] MARCELO PATTERSON A. Physical therapy to improve gait, all transfer skills and bed mobility to a modified independent level. B. Occupational therapy to improve activities of daily living to a modified independent level. C. Case management to assist with discharge planning and placement options. D. Nutrition to assist with nutritional needs. E. Rehabilitation nursing to assist in monitoring the patient's underlying medical conditions and to assist with any type of bowel or bladder management. 2. The patient's current medication and medical care will be continued. 3. The patient will be placed on standard fall precautions. 4. We will continue wound care to her abdomen including a wound VAC. 5. We will discuss this patient during care team staff meeting this week. TRANSINT:[id number] Voice Confirmation ID: [id number] DOCUMENT ID: [id number] GUILLERMO notes whether there has been none or any medical/functional change since admission: - No change since prescreen. GUILLERMO attests patient continues to be appropriate for IRF: - Continues to be appropriate. RAKESH URBINA MD at 1838 CC: [id number] DICTATION DATE: 08/16/17 0844 COMMERCIAL FIELD INSPECTOR: 08/16/17 0917 ADM IN [facility] [address] [place] [address]
[2017-08-15 17:27] VITALS: BP 102/61; BMI 21.0
[2017-08-15 21:45] VITALS: BP 106/68
[2017-08-16 07:25] LABS: BASOPHILS 0.3 % (0-2); EOSINOPHILS 2.7 % (0-7); HEMATOCRIT 30.9 % (36.0-48.0); HEMOGLOBIN 9.5 g/dL (12-16); IMMATURE GRANULOCYTES 2.7 % (0-5); LYMPHOCYTES 11.2 % (15-50); MCH 29.3 pg (26.0-34.0); MCHC 30.7 g/dL (31.0-37.0); MCV 95.4 fL (80.0-100.0); MEAN PLATELET VOLUME 9.3 fL (7.4-10.4); MONOCYTES 11.5 % (2-11); NEUTROPHILS 71.6 % (40-80); PLATELET COUNT 597 10x3/uL (130-400); RBC 3.24 10x6/uL (4.00-5.40); RDW 15.7 % (11.5-14.5); WBC 9.8 10x3/uL (4.8-10.8)
[2017-08-16 07:27] LABS: CALC OSMOLALITY 268 mosm/kg (275-300); CALCIUM 9.1 mg/dL (8.5-10.1); CARBON DIOXIDE 34.3 mmol/L (21.0-32.0); CHLORIDE - SERUM 100 mmol/L (98-107); CREATININE - SERUM 0.5 mg/dL (0.6-1.3); GLUCOSE 80 mg/dL (74-106); POTASSIUM - SERUM 4.1 mmol/L (3.5-5.1); SODIUM 136 mmol/L (136-145); UREA NITROGEN 7 mg/dL (7-18); eGFR NON AFRICAN AMERICAN > 90 mL/min (90-120)
[2017-08-16 07:58] VITALS: BP 107/61
[2017-08-16 10:19] VITALS: Ht 162.6 cm; Wt 55.3 kg
[2017-08-17 08:12] VITALS: BP 117/71
[2017-08-17 23:25] VITALS: BP 99/65
[2017-08-18 07:05] LABS: BASOPHILS 0.7 % (0-2); EOSINOPHILS 1.9 % (0-7); HEMATOCRIT 28.7 % (36.0-48.0); HEMOGLOBIN 9.1 g/dL (12-16); IMMATURE GRANULOCYTES 7.4 % (0-5); LYMPHOCYTES 10.8 % (15-50); MCH 29.8 pg (26.0-34.0); MCHC 31.7 g/dL (31.0-37.0); MCV 94.1 fL (80.0-100.0); MEAN PLATELET VOLUME 8.7 fL (7.4-10.4); MONOCYTES 14.9 % (2-11); NEUTROPHILS 64.3 % (40-80); PLATELET COUNT 509 10x3/uL (130-400); RBC 3.05 10x6/uL (4.00-5.40); RDW 15.4 % (11.5-14.5); WBC 8.8 10x3/uL (4.8-10.8)
[2017-08-18 07:27] LABS: CALC OSMOLALITY 267 mosm/kg (275-300); CALCIUM 9.2 mg/dL (8.5-10.1); CARBON DIOXIDE 34.1 mmol/L (21.0-32.0); CHLORIDE - SERUM 97 mmol/L (98-107); CREATININE - SERUM 0.6 mg/dL (0.6-1.3); GLUCOSE 83 mg/dL (74-106); POTASSIUM - SERUM 3.9 mmol/L (3.5-5.1); SODIUM 135 mmol/L (136-145); UREA NITROGEN 9 mg/dL (7-18); eGFR NON AFRICAN AMERICAN > 90 mL/min (90-120)
[2017-08-18 08:37] VITALS: BP 91/53
[2017-08-18 20:35] VITALS: BP 112/66
[2017-08-19 08:33] VITALS: BP 107/65
[2017-08-19 19:31] VITALS: BP 103/68
[2017-08-20 08:42] VITALS: BP 102/60
[2017-08-20 19:52] VITALS: BP 93/75
[2017-08-21 07:23] LABS: BASOPHILS 0.3 % (0-2); HEMATOCRIT 26.1 % (36.0-48.0); HEMOGLOBIN 8.1 g/dL (12-16); IMMATURE GRANULOCYTES 5.1 % (0-5); LYMPHOCYTES 6.9 % (15-50); MCH 29.5 pg (26.0-34.0); MCV 94.9 fL (80.0-100.0); MEAN PLATELET VOLUME 9.1 fL (7.4-10.4); MONOCYTES 15.6 % (2-11); NEUTROPHILS 71.1 % (40-80); PLATELET COUNT 511 10x3/uL (130-400); RBC 2.75 10x6/uL (4.00-5.40); RDW 15.2 % (11.5-14.5); WBC 9.7 10x3/uL (4.8-10.8)
[2017-08-21 07:47] LABS: CALC OSMOLALITY 268 mosm/kg (275-300); CALCIUM 8.8 mg/dL (8.5-10.1); CARBON DIOXIDE 32.9 mmol/L (21.0-32.0); CHLORIDE - SERUM 99 mmol/L (98-107); CREATININE - SERUM 0.5 mg/dL (0.6-1.3); GLUCOSE 79 mg/dL (74-106); POTASSIUM - SERUM 3.5 mmol/L (3.5-5.1); SODIUM 136 mmol/L (136-145); UREA NITROGEN 8 mg/dL (7-18); eGFR NON AFRICAN AMERICAN > 90 mL/min (90-120)
[2017-08-21 09:54] VITALS: BP 77/43
[2017-08-21 21:42] VITALS: BP 96/58
[2017-08-22 10:30] VITALS: BP 102/57
[2017-08-22 19:30] VITALS: BP 104/59; BP 99/62
[2017-08-23] VITALS (8 sets, daily range): BP systolic 88–103; BP diastolic 36–66
[2017-08-23 07:18] LABS: BASOPHILS 0.6 % (0-2); EOSINOPHILS 1.4 % (0-7); HEMATOCRIT 25.3 % (36.0-48.0); HEMOGLOBIN 7.8 g/dL (12-16); IMMATURE GRANULOCYTES 11.6 % (0-5); LYMPHOCYTES 5.7 % (15-50); MCH 29.2 pg (26.0-34.0); MCHC 30.8 g/dL (31.0-37.0); MCV 94.8 fL (80.0-100.0); MEAN PLATELET VOLUME 9.1 fL (7.4-10.4); MONOCYTES 16.3 % (2-11); NEUTROPHILS 64.4 % (40-80); PLATELET COUNT 437 10x3/uL (130-400); RBC 2.67 10x6/uL (4.00-5.40); RDW 15.3 % (11.5-14.5); WBC 12.3 10x3/uL (4.8-10.8)
[2017-08-23 07:54] LABS: CALC OSMOLALITY 270 mosm/kg (275-300); CALCIUM 8.4 mg/dL (8.5-10.1); CARBON DIOXIDE 34.2 mmol/L (21.0-32.0); CHLORIDE - SERUM 100 mmol/L (98-107); CREATININE - SERUM 0.4 mg/dL (0.6-1.3); GLUCOSE 87 mg/dL (74-106); POTASSIUM - SERUM 3.5 mmol/L (3.5-5.1); SODIUM 137 mmol/L (136-145); UREA NITROGEN 7 mg/dL (7-18); eGFR NON AFRICAN AMERICAN > 90 mL/min (90-120)
[2017-08-24 08:48] VITALS: BP 96/63
[2017-08-24 19:11] VITALS: BP 96/51
[2017-08-25 06:23] LABS: BASOPHILS 0.7 % (0-2); EOSINOPHILS 0.5 % (0-7); HEMATOCRIT 27.9 % (36.0-48.0); HEMOGLOBIN 8.6 g/dL (12-16); IMMATURE GRANULOCYTES 16.4 % (0-5); LYMPHOCYTES 5.5 % (15-50); MCH 28.9 pg (26.0-34.0); MCHC 30.8 g/dL (31.0-37.0); MCV 93.6 fL (80.0-100.0); MEAN PLATELET VOLUME 9.4 fL (7.4-10.4); MONOCYTES 14.1 % (2-11); NEUTROPHILS 62.8 % (40-80); PLATELET COUNT 489 10x3/uL (130-400); RBC 2.98 10x6/uL (4.00-5.40)
[2017-08-25 06:24] LABS: WBC 16.5 10x3/uL (4.8-10.8)
[2017-08-25 06:34] LABS: CALCIUM 9.1 mg/dL (8.5-10.1); CARBON DIOXIDE 32.3 mmol/L (21.0-32.0); CHLORIDE - SERUM 98 mmol/L (98-107); GLUCOSE 99 mg/dL (74-106); POTASSIUM - SERUM 3.3 mmol/L (3.5-5.1); SODIUM 135 mmol/L (136-145)
[2017-08-25 06:35] LABS: CALC OSMOLALITY 268 mosm/kg (275-300); CREATININE - SERUM 0.6 mg/dL (0.6-1.3); UREA NITROGEN 10 mg/dL (7-18); eGFR NON AFRICAN AMERICAN > 90 mL/min (90-120)
[2017-08-25 18:35] VITALS: BP 97/61
[2017-08-25 22:45] VITALS: BP 92/60
[2017-08-26 08:30] VITALS: BP 99/62
[2017-08-26 19:33] VITALS: BP 111/66
[2017-08-27 08:08] VITALS: BP 82/51
[2017-08-27 19:30] VITALS: BP 100/60
[2017-08-28 07:08] LABS: BASOPHILS 0.5 % (0-2); HEMATOCRIT 29.3 % (36.0-48.0); HEMOGLOBIN 8.6 g/dL (12-16); IMMATURE GRANULOCYTES 11.9 % (0-5); LYMPHOCYTES 6.8 % (15-50); MCHC 29.4 g/dL (31.0-37.0); MCV 98.7 fL (80.0-100.0); MEAN PLATELET VOLUME 9.3 fL (7.4-10.4); MONOCYTES 6.6 % (2-11); NEUTROPHILS 73.2 % (40-80); PLATELET COUNT 516 10x3/uL (130-400); RBC 2.97 10x6/uL (4.00-5.40); WBC 18.7 10x3/uL (4.8-10.8)
[2017-08-28 07:20] LABS: CALC OSMOLALITY 276 mosm/kg (275-300); CALCIUM 8.8 mg/dL (8.5-10.1); CARBON DIOXIDE 35.2 mmol/L (21.0-32.0); CHLORIDE - SERUM 102 mmol/L (98-107); CREATININE - SERUM 0.5 mg/dL (0.6-1.3); GLUCOSE 95 mg/dL (74-106); POTASSIUM - SERUM 4.5 mmol/L (3.5-5.1); SODIUM 139 mmol/L (136-145); UREA NITROGEN 10 mg/dL (7-18); eGFR NON AFRICAN AMERICAN > 90 mL/min (90-120)
[2017-08-28 18:14] VITALS: BP 90/52
[2017-08-28 19:43] VITALS: BP 92/52
[2017-08-29 08:39] VITALS: BP 92/59
[2017-08-29 19:00] VITALS: BP 101/53
[2017-08-30 07:56] VITALS: BP 94/54
[2017-08-30 19:30] VITALS: BP 98/52
[2017-08-31 08:32] VITALS: BP 98/59
[2017-08-31 19:15] VITALS: BP 97/51
[2017-09-01 06:59] LABS: BASOPHILS 0.2 % (0-2); EOSINOPHILS 0.4 % (0-7); HEMATOCRIT 26.7 % (36.0-48.0); HEMOGLOBIN 7.8 g/dL (12-16); IMMATURE GRANULOCYTES 8.4 % (0-5); LYMPHOCYTES 7.7 % (15-50); MCH 28.8 pg (26.0-34.0); MCHC 29.2 g/dL (31.0-37.0); MCV 98.5 fL (80.0-100.0); MEAN PLATELET VOLUME 9.1 fL (7.4-10.4); MONOCYTES 9.9 % (2-11); NEUTROPHILS 73.4 % (40-80); PLATELET COUNT 570 10x3/uL (130-400); RBC 2.71 10x6/uL (4.00-5.40); RDW 15.6 % (11.5-14.5); WBC 18.5 10x3/uL (4.8-10.8)
[2017-09-01 07:27] LABS: CALC OSMOLALITY 273 mosm/kg (275-300); CARBON DIOXIDE 36.2 mmol/L (21.0-32.0); CHLORIDE - SERUM 100 mmol/L (98-107); CREATININE - SERUM 0.4 mg/dL (0.6-1.3); GLUCOSE 89 mg/dL (74-106); POTASSIUM - SERUM 5.2 mmol/L (3.5-5.1); SODIUM 138 mmol/L (136-145); UREA NITROGEN 10 mg/dL (7-18); eGFR NON AFRICAN AMERICAN > 90 mL/min (90-120)
[2017-09-01 08:00] VITALS: BP 90/56
[2017-09-01] MEDS ORDERED: HYDROCODONE-APA1 TAB PO (09:18)
[2017-09-01] MEDS ORDERED: LEXAPRO10 MG PO (10:27)
== END 2017-09-01 16:02 | DRG 91 ==
LOC: D.REHAB 16:41
PROVIDERS: Emergency Medicine
DX: G72.81 Critical illness myopathy (principal); A41.9 Sepsis, unspecified organism; R65.21 Severe sepsis with septic shock; J96.90 Respiratory failure, unspecified, unspecified whether with hypoxia or hypercapnia; K63.1 Perforation of intestine (nontraumatic); K65.9 Peritonitis, unspecified; J98.11 Atelectasis; I50.22 Chronic systolic (congestive) heart failure; R13.12 Dysphagia, oropharyngeal phase; J44.9 Chronic obstructive pulmonary disease, unspecified; F17.200 Nicotine dependence, unspecified, uncomplicated; D64.9 Anemia, unspecified; D72.829 Elevated white blood cell count, unspecified; E03.9 Hypothyroidism, unspecified; E88.09 Other disorders of plasma-protein metabolism, not elsewhere classified; R53.81 Other malaise

== ENCOUNTER 2017-09-17 20:03 | Inpatient (IN) | payer MEDICARE, BC ==
[~2017-09-17] VITALS: Ht 162.6 cm; Wt 67.0 kg
[~2017-09-17 20:03] MED LIST changes: +LEXAPRO10 MG PO
[2017-09-17 20:46] LABS: BASOPHILS 0.2 % (0-2); EOSINOPHILS 1.2 % (0-7); HEMATOCRIT 28.6 % (36.0-48.0); IMMATURE GRANULOCYTES 1.8 % (0-5); LYMPHOCYTES 7.4 % (15-50); MCH 28.1 pg (26.0-34.0); MCV 100.4 fL (80.0-100.0); MEAN PLATELET VOLUME 8.6 fL (7.4-10.4); MONOCYTES 9.1 % (2-11); NEUTROPHILS 80.3 % (40-80); RBC 2.85 10x6/uL (4.00-5.40); RDW 15.3 % (11.5-14.5); WBC 14.6 10x3/uL (4.8-10.8)
[2017-09-17 20:53] LABS: PLATELET COUNT 446 10x3/uL (130-400)
[2017-09-17 21:18] LABS: ALBUMIN 1.9 g/dL (3.4-5.0); ALKALINE PHOSPHATASE 100 U/L (46-116); ALT (SGPT) 6 U/L (10-68); CALC OSMOLALITY 265 mosm/kg (275-300); CALCIUM 9.5 mg/dL (8.5-10.1); CHLORIDE - SERUM 93 mmol/L (98-107); CKMB 1.4 U/L (0.0-3.6); CREATINE KINASE 11 UL (21-215); CREATININE - SERUM 0.3 mg/dL (0.6-1.3); GLUCOSE 127 mg/dL (74-106); POTASSIUM - SERUM 4.5 mmol/L (3.5-5.1); PRO BNP 18259 pg/mL (0-125); PROTEIN - SERUM 5.7 g/dL (6.4-8.2); SODIUM 133 mmol/L (136-145); TROPONIN-I 0.021 ng/mL (0.000-0.060); UREA NITROGEN 7 mg/dL (7-18); eGFR NON AFRICAN AMERICAN > 90 mL/min (90-120)
[2017-09-17 21:52] LABS: APPEARANCE CLOUDY (CLEAR); BILIRUBIN NEGATIVE (NEGATIVE); COLOR YELLOW (YELLOW); GLUCOSE NEGATIVE (NEGATIVE); KETONE NEGATIVE (NEGATIVE); NITRITE NEGATIVE (NEGATIVE); PROTEIN NEGATIVE (NEGATIVE); SPECIFIC GRAVITY 1.015 (1.005-1.020); UROBILINOGEN NORMAL (NORMAL)
[2017-09-17 21:54] LABS: AMORPHOUS SEDIMENT <1+ /lpf (NONE SEEN); BACTERIA MODERATE /hpf (NONE SEEN); WHITE CELLS - URINE 25-50 /hpf (0-5)
[2017-09-18] VITALS (28 sets, daily range): BP systolic 87–105; BP diastolic 56–70; BMI 25.1
[2017-09-18 03:34] LABS: CKMB 1.9 U/L (0.0-3.6); CREATINE KINASE 100 UL (21-215); TROPONIN-I 0.017 ng/mL (0.000-0.060)
[2017-09-18 09:00] LABS: CALC OSMOLALITY 272 mosm/kg (275-300); CHLORIDE - SERUM 92 mmol/L (98-107); CKMB 0.7 U/L (0.0-3.6); CREATINE KINASE 14 UL (21-215); CREATININE - SERUM 0.5 mg/dL (0.6-1.3); GLUCOSE 153 mg/dL (74-106); POTASSIUM - SERUM 4.1 mmol/L (3.5-5.1); SODIUM 136 mmol/L (136-145); TROPONIN-I < 0.017 ng/mL (0.000-0.060); UREA NITROGEN 8 mg/dL (7-18); eGFR NON AFRICAN AMERICAN > 90 mL/min (90-120)
[2017-09-18 09:02] LABS: CARBON DIOXIDE 41.1 mmol/L (21.0-32.0)
[2017-09-18 14:40] LABS: CKMB 0.2 U/L (0.0-3.6); TROPONIN-I 0.018 ng/mL (0.000-0.060)
[2017-09-18 14:54] LABS: CREATINE KINASE 4 UL (21-215)
[2017-09-19] VITALS (87 sets, daily range): BP systolic 86–123; BP diastolic 25–78; Ht 162.6 cm; Wt 67.0 kg
[2017-09-19 04:19] LABS: BASOPHILS 0.1 % (0-2); EOSINOPHILS 1.5 % (0-7); HEMOGLOBIN 7.8 g/dL (12-16); IMMATURE GRANULOCYTES 4.6 % (0-5); MCH 28.7 pg (26.0-34.0); MEAN PLATELET VOLUME 8.9 fL (7.4-10.4); MONOCYTES 8.4 % (2-11); NEUTROPHILS 73.4 % (40-80); PLATELET COUNT 493 10x3/uL (130-400); RBC 2.72 10x6/uL (4.00-5.40); RDW 15.9 % (11.5-14.5); WBC 14.5 10x3/uL (4.8-10.8)
[2017-09-19 04:26] LABS: MCV 95.6 fL (80.0-100.0)
[2017-09-19 04:45] LABS: ALBUMIN 1.6 g/dL (3.4-5.0); ALKALINE PHOSPHATASE 83 U/L (46-116); BILIRUBIN - TOTAL 0.27 mg/dL (0.2-1.3); CALCIUM 8.8 mg/dL (8.5-10.1); CHLORIDE - SERUM 91 mmol/L (98-107); CREATININE - SERUM 0.4 mg/dL (0.6-1.3); MAGNESIUM - SERUM 1.5 mg/dL (1.8-2.4); PHOSPHOROUS 3.4 mg/dL (2.5-4.9); PROTEIN - SERUM 5.5 g/dL (6.4-8.2); SODIUM 136 mmol/L (136-145); UREA NITROGEN 10 mg/dL (7-18); eGFR NON AFRICAN AMERICAN > 90 mL/min (90-120)
[2017-09-19 04:50] LABS: CALC OSMOLALITY 270 mosm/kg (275-300); GLUCOSE 98 mg/dL (74-106)
[2017-09-19 04:51] LABS: ALT (SGPT) 4 U/L (10-68); CARBON DIOXIDE 42.7 mmol/L (21.0-32.0); POTASSIUM - SERUM 2.9 mmol/L (3.5-5.1)
[2017-09-20] VITALS (82 sets, daily range): BP systolic 86–128; BP diastolic 51–81
[2017-09-20 03:48] LABS: BASOPHILS 0.1 % (0-2); EOSINOPHILS 0 % (0-7); HEMATOCRIT 28.6 % (36.0-48.0); HEMOGLOBIN 8.5 g/dL (12-16); IMMATURE GRANULOCYTES 5.1 % (0-5); LYMPHOCYTES 5.4 % (15-50); MCHC 29.7 g/dL (31.0-37.0); MCV 94.1 fL (80.0-100.0); MEAN PLATELET VOLUME 9.6 fL (7.4-10.4); MONOCYTES 4.1 % (2-11); NEUTROPHILS 85.3 % (40-80); RBC 3.04 10x6/uL (4.00-5.40); RDW 15.9 % (11.5-14.5)
[2017-09-20 03:50] LABS: PLATELET COUNT 391 10x3/uL (130-400)
[2017-09-20 04:19] LABS: ALBUMIN 1.8 g/dL (3.4-5.0); ALKALINE PHOSPHATASE 86 U/L (46-116); BILIRUBIN - TOTAL 0.32 mg/dL (0.2-1.3); CALC OSMOLALITY 273 mosm/kg (275-300); CALCIUM 8.8 mg/dL (8.5-10.1); CHLORIDE - SERUM 92 mmol/L (98-107); CREATININE - SERUM 0.5 mg/dL (0.6-1.3); GLUCOSE 127 mg/dL (74-106); MAGNESIUM - SERUM 1.6 mg/dL (1.8-2.4); PHOSPHOROUS 3.9 mg/dL (2.5-4.9); PRO BNP 11974 pg/mL (0-125); PROTEIN - SERUM 6.1 g/dL (6.4-8.2); SODIUM 137 mmol/L (136-145); THYROID STIMULATING HORMONE 1.05 uIU/mL (0.36-3.74); UREA NITROGEN 8 mg/dL (7-18); eGFR NON AFRICAN AMERICAN > 90 mL/min (90-120)
[2017-09-20 04:26] LABS: ALT (SGPT) 7 U/L (10-68); POTASSIUM - SERUM 3.7 mmol/L (3.5-5.1)
[2017-09-20 04:27] LABS: CARBON DIOXIDE 40.7 mmol/L (21.0-32.0)
[2017-09-20 13:49] LABS: APTT 27.5 SECONDS (22.8-39.4); INR 1.08 (0.85-1.17); PROTIME 13.6 SECONDS (11.6-15.0)
[2017-09-20 18:59] LABS: MACROPHAGES BF 14 %; MESOTHELIALS BF 1 %; NEUT - BF 66 %
[2017-09-21] VITALS (63 sets, daily range): BP systolic 80–119; BP diastolic 49–74
[2017-09-21 04:25] LABS: BASOPHILS 0.1 % (0-2); EOSINOPHILS 0.1 % (0-7); HEMATOCRIT 27.9 % (36.0-48.0); HEMOGLOBIN 8.3 g/dL (12-16); IMMATURE GRANULOCYTES 2.6 % (0-5); LYMPHOCYTES 5.5 % (15-50); MCH 28.3 pg (26.0-34.0); MCHC 29.7 g/dL (31.0-37.0); MCV 95.2 fL (80.0-100.0); MEAN PLATELET VOLUME 9.1 fL (7.4-10.4); MONOCYTES 6.6 % (2-11); NEUTROPHILS 85.1 % (40-80); RBC 2.93 10x6/uL (4.00-5.40); RDW 16.3 % (11.5-14.5); WBC 18.8 10x3/uL (4.8-10.8)
[2017-09-21 04:31] LABS: PLATELET COUNT 493 10x3/uL (130-400)
[2017-09-21 04:51] LABS: ALBUMIN 1.9 g/dL (3.4-5.0); ALKALINE PHOSPHATASE 78 U/L (46-116); BILIRUBIN - TOTAL 0.29 mg/dL (0.2-1.3); CALC OSMOLALITY 279 mosm/kg (275-300); CALCIUM 8.2 mg/dL (8.5-10.1); CHLORIDE - SERUM 94 mmol/L (98-107); CREATININE - SERUM 0.5 mg/dL (0.6-1.3); GLUCOSE 139 mg/dL (74-106); LDH 103 U/L (81-234); PRO BNP 9728 pg/mL (0-125); PROTEIN - SERUM 5.9 g/dL (6.4-8.2); SODIUM 140 mmol/L (136-145); UREA NITROGEN 10 mg/dL (7-18); eGFR NON AFRICAN AMERICAN > 90 mL/min (90-120)
[2017-09-21 04:53] LABS: ALT (SGPT) 5 U/L (10-68); MAGNESIUM - SERUM 2.4 mg/dL (1.8-2.4); PHOSPHOROUS 2.6 mg/dL (2.5-4.9)
[2017-09-21 04:54] LABS: CARBON DIOXIDE 41.7 mmol/L (21.0-32.0); POTASSIUM - SERUM 2.5 mmol/L (3.5-5.1)
[2017-09-21 14:00] LABS: PROTEIN - SERUM 6.1 g/dL (6.4-8.2); VANCOMYCIN - TROUGH 22.1 ug/mL (10.0-20.0)
[2017-09-22] VITALS (89 sets, daily range): BP systolic 81–120; BP diastolic 50–81
[2017-09-22 04:21] LABS: BASOPHILS 0.1 % (0-2); EOSINOPHILS 0 % (0-7); HEMATOCRIT 30.5 % (36.0-48.0); IMMATURE GRANULOCYTES 3.3 % (0-5); MCH 28.3 pg (26.0-34.0); MCHC 29.5 g/dL (31.0-37.0); MCV 95.9 fL (80.0-100.0); MEAN PLATELET VOLUME 9.2 fL (7.4-10.4); MONOCYTES 4.4 % (2-11); NEUTROPHILS 85.2 % (40-80); PLATELET COUNT 402 10x3/uL (130-400); RBC 3.18 10x6/uL (4.00-5.40); RDW 16.3 % (11.5-14.5); WBC 17.2 10x3/uL (4.8-10.8)
[2017-09-22 04:47] LABS: ALBUMIN 2.1 g/dL (3.4-5.0); ALKALINE PHOSPHATASE 81 U/L (46-116); CALC OSMOLALITY 281 mosm/kg (275-300); CALCIUM 8.4 mg/dL (8.5-10.1); CHLORIDE - SERUM 95 mmol/L (98-107); CREATININE - SERUM 0.4 mg/dL (0.6-1.3); GLUCOSE 161 mg/dL (74-106); LDH 119 U/L (81-234); POTASSIUM - SERUM 3.5 mmol/L (3.5-5.1); PROTEIN - SERUM 5.9 g/dL (6.4-8.2); SODIUM 140 mmol/L (136-145); UREA NITROGEN 12 mg/dL (7-18); eGFR NON AFRICAN AMERICAN > 90 mL/min (90-120)
[2017-09-22 04:48] LABS: ALT (SGPT) 5 U/L (10-68); CARBON DIOXIDE 41.2 mmol/L (21.0-32.0)
[2017-09-22 18:11] LABS: ACID FAST SMEAR Negative (()); AFB SPECIMEN PROCESSING Not Indicated (())
[2017-09-23] VITALS (46 sets, daily range): BP systolic 86–133; BP diastolic 51–84
[2017-09-23 04:36] LABS: BASOPHILS 0.1 % (0-2); EOSINOPHILS 0.1 % (0-7); HEMOGLOBIN 8.5 g/dL (12-16); IMMATURE GRANULOCYTES 3.8 % (0-5); MCH 28.4 pg (26.0-34.0); MCHC 29.3 g/dL (31.0-37.0); MEAN PLATELET VOLUME 9.1 fL (7.4-10.4); PLATELET COUNT 374 10x3/uL (130-400); RBC 2.99 10x6/uL (4.00-5.40); RDW 16.3 % (11.5-14.5); WBC 14.8 10x3/uL (4.8-10.8)
[2017-09-23 05:12] LABS: ALBUMIN 2.1 g/dL (3.4-5.0); ALKALINE PHOSPHATASE 71 U/L (46-116); BILIRUBIN - TOTAL 0.45 mg/dL (0.2-1.3); CALC OSMOLALITY 282 mosm/kg (275-300); CALCIUM 8.5 mg/dL (8.5-10.1); CHLORIDE - SERUM 96 mmol/L (98-107); CREATININE - SERUM 0.4 mg/dL (0.6-1.3); GLUCOSE 120 mg/dL (74-106); POTASSIUM - SERUM 3.3 mmol/L (3.5-5.1); PRO BNP 7939 pg/mL (0-125); PROTEIN - SERUM 6.2 g/dL (6.4-8.2); SODIUM 142 mmol/L (136-145); UREA NITROGEN 11 mg/dL (7-18); eGFR NON AFRICAN AMERICAN > 90 mL/min (90-120)
[2017-09-23 05:25] LABS: ALT (SGPT) 8 U/L (10-68); CARBON DIOXIDE 41.8 mmol/L (21.0-32.0)
[2017-09-24] VITALS (24 sets, daily range): BP systolic 80–133; BP diastolic 45–84
[2017-09-24 07:05] LABS: BASOPHILS 0.1 % (0-2); EOSINOPHILS 0.5 % (0-7); HEMATOCRIT 28.4 % (36.0-48.0); HEMOGLOBIN 8.3 g/dL (12-16); IMMATURE GRANULOCYTES 3.1 % (0-5); LYMPHOCYTES 7.8 % (15-50); MCH 28.8 pg (26.0-34.0); MCHC 29.2 g/dL (31.0-37.0); MCV 98.6 fL (80.0-100.0); MEAN PLATELET VOLUME 8.7 fL (7.4-10.4); MONOCYTES 4.6 % (2-11); NEUTROPHILS 83.9 % (40-80); PLATELET COUNT 358 10x3/uL (130-400); RBC 2.88 10x6/uL (4.00-5.40); RDW 16.1 % (11.5-14.5); WBC 14.7 10x3/uL (4.8-10.8)
[2017-09-24 07:17] LABS: ALKALINE PHOSPHATASE 64 U/L (46-116); BILIRUBIN - TOTAL 0.22 mg/dL (0.2-1.3); CALC OSMOLALITY 277 mosm/kg (275-300); CALCIUM 8.9 mg/dL (8.5-10.1); CHLORIDE - SERUM 99 mmol/L (98-107); CREATININE - SERUM 0.3 mg/dL (0.6-1.3); GLUCOSE 109 mg/dL (74-106); PROTEIN - SERUM 5.6 g/dL (6.4-8.2); SODIUM 139 mmol/L (136-145); UREA NITROGEN 10 mg/dL (7-18); eGFR NON AFRICAN AMERICAN > 90 mL/min (90-120)
[2017-09-24 07:25] LABS: POTASSIUM - SERUM 3.9 mmol/L (3.5-5.1)
[2017-09-24 07:26] LABS: ALT (SGPT) 12 U/L (10-68); CARBON DIOXIDE 44.3 mmol/L (21.0-32.0)
[2017-09-25] VITALS (13 sets, daily range): BP systolic 83–98; BP diastolic 48–64
[2017-09-25 04:23] LABS: BASOPHILS 0.1 % (0-2); EOSINOPHILS 0.2 % (0-7); HEMATOCRIT 29.9 % (36.0-48.0); HEMOGLOBIN 8.6 g/dL (12-16); IMMATURE GRANULOCYTES 2.3 % (0-5); LYMPHOCYTES 6.4 % (15-50); MCH 28.7 pg (26.0-34.0); MCHC 28.8 g/dL (31.0-37.0); MCV 99.7 fL (80.0-100.0); MEAN PLATELET VOLUME 9.3 fL (7.4-10.4); MONOCYTES 4.3 % (2-11); NEUTROPHILS 86.7 % (40-80); PLATELET COUNT 398 10x3/uL (130-400); RDW 16.1 % (11.5-14.5)
[2017-09-25 05:06] LABS: ALKALINE PHOSPHATASE 61 U/L (46-116); ALT (SGPT) 12 U/L (10-68); BILIRUBIN - TOTAL 0.16 mg/dL (0.2-1.3); CALCIUM 8.8 mg/dL (8.5-10.1); GLUCOSE 153 mg/dL (74-106); PROTEIN - SERUM 5.5 g/dL (6.4-8.2); UREA NITROGEN 9 mg/dL (7-18)
[2017-09-25 05:18] LABS: CREATININE - SERUM 0.4 mg/dL (0.6-1.3); eGFR NON AFRICAN AMERICAN > 90 mL/min (90-120)
[2017-09-25 05:19] LABS: CARBON DIOXIDE 41.2 mmol/L (21.0-32.0)
[2017-09-25 05:43] LABS: CALC OSMOLALITY 279 mosm/kg (275-300); CHLORIDE - SERUM 97 mmol/L (98-107); POTASSIUM - SERUM 3.5 mmol/L (3.5-5.1); SODIUM 139 mmol/L (136-145)
[2017-09-25 10:12] LABS: FUNGUS STAIN Final report (())
[2017-09-26 01:29] VITALS: BP 82/52
[2017-09-26 04:59] VITALS: BP 98/74
[2017-09-26 06:04] LABS: BASOPHILS 0.1 % (0-2); EOSINOPHILS 0.3 % (0-7); HEMATOCRIT 29.5 % (36.0-48.0); HEMOGLOBIN 8.8 g/dL (12-16); IMMATURE GRANULOCYTES 2.1 % (0-5); LYMPHOCYTES 10.1 % (15-50); MCH 28.9 pg (26.0-34.0); MCHC 29.8 g/dL (31.0-37.0); MEAN PLATELET VOLUME 9.8 fL (7.4-10.4); MONOCYTES 4.5 % (2-11); NEUTROPHILS 82.9 % (40-80); PLATELET COUNT 369 10x3/uL (130-400); RBC 3.04 10x6/uL (4.00-5.40); RDW 15.8 % (11.5-14.5)
[2017-09-26 06:11] LABS: ALBUMIN 2.1 g/dL (3.4-5.0); ALKALINE PHOSPHATASE 68 U/L (46-116); ALT (SGPT) 14 U/L (10-68); CALC OSMOLALITY 271 mosm/kg (275-300); CALCIUM 9.1 mg/dL (8.5-10.1); CHLORIDE - SERUM 96 mmol/L (98-107); CREATININE - SERUM 0.4 mg/dL (0.6-1.3); GLUCOSE 153 mg/dL (74-106); MAGNESIUM - SERUM 1.7 mg/dL (1.8-2.4); PHOSPHOROUS 2.1 mg/dL (2.5-4.9); PROTEIN - SERUM 5.6 g/dL (6.4-8.2); SODIUM 135 mmol/L (136-145); THYROID STIMULATING HORMONE 10.76 uIU/mL (0.36-3.74); UREA NITROGEN 10 mg/dL (7-18); eGFR NON AFRICAN AMERICAN > 90 mL/min (90-120)
[2017-09-26 08:28] VITALS: BP 97/58
[2017-09-26 12:08] VITALS: BP 89/50
[2017-09-26 16:19] VITALS: BP 89/56
[2017-09-26 22:39] VITALS: BP 111/60
[2017-09-27 02:54] VITALS: BP 116/62
[2017-09-27 05:31] VITALS: BP 91/53
[2017-09-27 07:57] VITALS: BP 90/50
[2017-09-27 12:30] VITALS: BP 89/51
[2017-09-27 16:28] VITALS: BP 130/78
[2017-09-27 23:32] VITALS: BP 93/55
[2017-09-28 04:00] VITALS: BP 100/63
[2017-09-28 05:48] LABS: BASOPHILS 0 % (0-2); EOSINOPHILS 0.6 % (0-7); HEMATOCRIT 27.2 % (36.0-48.0); HEMOGLOBIN 8.3 g/dL (12-16); IMMATURE GRANULOCYTES 2.6 % (0-5); LYMPHOCYTES 11.6 % (15-50); MCH 28.9 pg (26.0-34.0); MCHC 30.5 g/dL (31.0-37.0); MCV 94.8 fL (80.0-100.0); MEAN PLATELET VOLUME 9.1 fL (7.4-10.4); MONOCYTES 5.4 % (2-11); NEUTROPHILS 79.8 % (40-80); PLATELET COUNT 373 10x3/uL (130-400); RBC 2.87 10x6/uL (4.00-5.40); RDW 16.1 % (11.5-14.5); WBC 12.7 10x3/uL (4.8-10.8)
[2017-09-28 06:13] LABS: CALC OSMOLALITY 271 mosm/kg (275-300); CALCIUM 9.2 mg/dL (8.5-10.1); CARBON DIOXIDE 36.5 mmol/L (21.0-32.0); CHLORIDE - SERUM 99 mmol/L (98-107); CREATININE - SERUM 0.3 mg/dL (0.6-1.3); POTASSIUM - SERUM 3.7 mmol/L (3.5-5.1); SODIUM 137 mmol/L (136-145); UREA NITROGEN 7 mg/dL (7-18); eGFR NON AFRICAN AMERICAN > 90 mL/min (90-120)
[2017-09-28 06:15] LABS: GLUCOSE 98 mg/dL (74-106)
[2017-09-28 07:59] VITALS: BP 91/52
[2017-09-28 12:31] VITALS: BP 96/59
[2017-09-28 16:19] VITALS: BP 90/59
[2017-09-28 21:39] VITALS: BP 162/55
[2017-09-29 00:15] VITALS: BP 96/63
[2017-09-29 04:00] VITALS: BP 92/56
[2017-09-29 08:54] VITALS: BP 98/62
[2017-09-29 09:43] LABS: CALCIUM 9.1 mg/dL (8.5-10.1); CARBON DIOXIDE 31.9 mmol/L (21.0-32.0); CHLORIDE - SERUM 99 mmol/L (98-107); GLUCOSE 108 mg/dL (74-106); POTASSIUM - SERUM 3.9 mmol/L (3.5-5.1); SODIUM 135 mmol/L (136-145)
[2017-09-29 09:44] LABS: CALC OSMOLALITY 269 mosm/kg (275-300); CREATININE - SERUM 0.5 mg/dL (0.6-1.3); UREA NITROGEN 9 mg/dL (7-18); eGFR NON AFRICAN AMERICAN > 90 mL/min (90-120)
[2017-09-29 09:48] LABS: BASOPHILS 0.1 % (0-2); EOSINOPHILS 1.1 % (0-7); HEMOGLOBIN 8.5 g/dL (12-16); IMMATURE GRANULOCYTES 2.3 % (0-5); LYMPHOCYTES 13.3 % (15-50); MCHC 30.4 g/dL (31.0-37.0); MCV 95.6 fL (80.0-100.0); MEAN PLATELET VOLUME 9.3 fL (7.4-10.4); MONOCYTES 5.9 % (2-11); NEUTROPHILS 77.3 % (40-80); PLATELET COUNT 392 10x3/uL (130-400); RBC 2.93 10x6/uL (4.00-5.40); RDW 16.7 % (11.5-14.5); WBC 13.6 10x3/uL (4.8-10.8)
[2017-09-29 11:19] LABS: FUNGUS MYCOLOGY CULTURE Preliminary report (())
[2017-09-29 11:42] VITALS: BP 125/77
[2017-09-29 16:30] VITALS: BP 91/55
[2017-09-29 23:18] VITALS: BP 94/53
[2017-09-30 02:11] VITALS: BP 97/51
[2017-09-30 04:56] VITALS: BP 97/58
[2017-09-30 09:24] VITALS: BP 99/63
[2017-09-30 16:10] VITALS: BP 81/50
[2017-09-30 22:20] VITALS: BP 92/58
[2017-10-01 01:15] VITALS: BP 75/35
[2017-10-01 05:05] VITALS: BP 90/58
[2017-10-01 07:54] VITALS: BP 92/54
[2017-10-01 11:59] VITALS: BP 75/45
[2017-10-01 16:14] VITALS: BP 75/35
[2017-10-01 22:26] VITALS: BP 93/57
[2017-10-02 01:39] VITALS: BP 95/31
[2017-10-02 05:15] VITALS: BP 93/50
[2017-10-02 05:15] LABS: BASOPHILS 0.3 % (0-2); EOSINOPHILS 1.4 % (0-7); IMMATURE GRANULOCYTES 2.7 % (0-5); LYMPHOCYTES 15.2 % (15-50); MCH 29.5 pg (26.0-34.0); MCHC 29.6 g/dL (31.0-37.0); MCV 99.6 fL (80.0-100.0); MEAN PLATELET VOLUME 8.9 fL (7.4-10.4); MONOCYTES 7.5 % (2-11); NEUTROPHILS 72.9 % (40-80); PLATELET COUNT 379 10x3/uL (130-400); RBC 2.71 10x6/uL (4.00-5.40); RDW 17.7 % (11.5-14.5); WBC 11.8 10x3/uL (4.8-10.8)
[2017-10-02 05:37] LABS: ALBUMIN 2.2 g/dL (3.4-5.0); ALKALINE PHOSPHATASE 60 U/L (46-116); ALT (SGPT) 16 U/L (10-68); CALC OSMOLALITY 273 mosm/kg (275-300); CALCIUM 9.8 mg/dL (8.5-10.1); CARBON DIOXIDE 31.5 mmol/L (21.0-32.0); CHLORIDE - SERUM 100 mmol/L (98-107); CREATININE - SERUM 0.4 mg/dL (0.6-1.3); GLUCOSE 108 mg/dL (74-106); MAGNESIUM - SERUM 1.8 mg/dL (1.8-2.4); PHOSPHOROUS 3.6 mg/dL (2.5-4.9); POTASSIUM - SERUM 4.3 mmol/L (3.5-5.1); PROTEIN - SERUM 5.6 g/dL (6.4-8.2); SODIUM 136 mmol/L (136-145); UREA NITROGEN 15 mg/dL (7-18); eGFR NON AFRICAN AMERICAN > 90 mL/min (90-120)
[2017-10-02 08:37] VITALS: BP 82/49
[2017-10-02 11:47] VITALS: BP 79/41
[2017-10-02 15:50] VITALS: BP 82/38
[2017-10-02 22:21] VITALS: BP 87/49
[2017-10-03 00:56] VITALS: BP 94/54
[2017-10-03 05:20] VITALS: BP 100/60
[2017-10-03 08:59] VITALS: BP 97/56
[2017-10-03] MEDS ORDERED: MAXIPIME 2 GM/D52 G1 IV (11:05)
[2017-10-03] MEDS ORDERED: ALBUTEROL2.5 MG/3 M INH (11:06)
[2017-10-03] MEDS ORDERED: BROVANA15 MCG/2 M INH (11:06)
[2017-10-03] MEDS ORDERED: PULMICORT0.5 MG/21 UPD (11:08)
[2017-10-03] MEDS ORDERED: PROTONIX40 MG PO (11:10)
[2017-10-03] MEDS ORDERED: PREDNISONE10 MG PO (11:12)
[2017-10-03 12:57] LABS: BASOPHILS 0.1 % (0-2); EOSINOPHILS 1.1 % (0-7); HEMATOCRIT 28.3 % (36.0-48.0); HEMOGLOBIN 8.6 g/dL (12-16); IMMATURE GRANULOCYTES 2.2 % (0-5); LYMPHOCYTES 5.7 % (15-50); MCHC 30.4 g/dL (31.0-37.0); MCV 95.3 fL (80.0-100.0); MEAN PLATELET VOLUME 9.2 fL (7.4-10.4); MONOCYTES 5.8 % (2-11); NEUTROPHILS 85.1 % (40-80); PLATELET COUNT 447 10x3/uL (130-400); RBC 2.97 10x6/uL (4.00-5.40); RDW 17.1 % (11.5-14.5); WBC 13.8 10x3/uL (4.8-10.8)
[2017-10-03 13:02] LABS: CALC OSMOLALITY 266 mosm/kg (275-300); CALCIUM 9.4 mg/dL (8.5-10.1); CARBON DIOXIDE 37.6 mmol/L (21.0-32.0); CHLORIDE - SERUM 94 mmol/L (98-107); GLUCOSE 110 mg/dL (74-106); POTASSIUM - SERUM 4.5 mmol/L (3.5-5.1); SODIUM 132 mmol/L (136-145); UREA NITROGEN 15 mg/dL (7-18)
[2017-10-03 13:06] LABS: CREATININE - SERUM 0.6 mg/dL (0.6-1.3); eGFR NON AFRICAN AMERICAN > 90 mL/min (90-120)
== END 2017-10-03 15:32 | DRG 870 ==
LOC: D.ER 20:03 → D.ICU 09-18 02:25 → D.MS 09-25 18:21
PROVIDERS: Family Medicine; General Practice; Internal Medicine Pulmonary Disease
PROC: 5A09357 Assistance with Respiratory Ventilation, Less than 24 Consecutive Hours, Continuous Positive Airway Pressure (ICD-10-PCS; 2017-09-17)
PROC: 0BH17EZ Insertion of Endotracheal Airway into Trachea, Via Natural or Artificial Opening (ICD-10-PCS; principal; 2017-09-18)
PROC: 5A1955Z Respiratory Ventilation, Greater than 96 Consecutive Hours (ICD-10-PCS; 2017-09-18)
PROC: 0W9930Z Drainage of Right Pleural Cavity with Drainage Device, Percutaneous Approach (ICD-10-PCS; 2017-09-20)
PROC: 0W9B3ZZ Drainage of Left Pleural Cavity, Percutaneous Approach (ICD-10-PCS; 2017-09-21)
DX: A41.9 Sepsis, unspecified organism (principal); J96.02 Acute respiratory failure with hypercapnia; G93.41 Metabolic encephalopathy; I50.21 Acute systolic (congestive) heart failure; J96.21 Acute and chronic respiratory failure with hypoxia; F17.203 Nicotine dependence unspecified, with withdrawal; N39.0 Urinary tract infection, site not specified; J44.1 Chronic obstructive pulmonary disease with (acute) exacerbation; E46 Unspecified protein-calorie malnutrition; G72.81 Critical illness myopathy; J90 Pleural effusion, not elsewhere classified; E03.9 Hypothyroidism, unspecified; Z68.25 Body mass index [BMI] 25.0-25.9, adult; B95.2 Enterococcus as the cause of diseases classified elsewhere; B96.4 Proteus (mirabilis) (morganii) as the cause of diseases classified elsewhere; D63.8 Anemia in other chronic diseases classified elsewhere

== ENCOUNTER 2017-10-03 15:45 | Inpatient (IN) | payer MEDICARE, BC ==
[~2017-10-03] VITALS: Ht 162.6 cm; Wt 66.7 kg
--- NOTE | ~2017-10-03 | RHP ---
PATIENT: MARCELO PATTERSON MEDICAL RECORD: [id number] ACCOUNT: [id number] [facility] : 51 ADMISSION DATE: 10/03/17 REHABILITATION HISTORY AND PHYSICAL EXAMINATION POST ADMISSION PHYSICIAN EXAMINATION DATE OF ADMISSION: 10/03/2017. ADMITTING DIAGNOSES: Critical illness myopathy HISTORY OF PRESENT ILLNESS: The patient is a 62-year-old female patient who is put in the inpatient rehab for neurological condition, critical illness myopathy. She was brought to the ER via EMS from [facility] for altered mental status, respiratory distress and cough. She required intubation secondary to hypercapnic respiratory failure and was admitted to the ICU on 09/18/2017 and required ventilation until 09/23/2017. She was transferred out of ICU on 09/25/2017. She was recently on the acute inpatient rehab and was very sick prior to her stay. She was transferred to care home facility unit and was there until recent respiratory failure episode. She now feels she is stronger and is ambulating short distances with therapy during her acute hospital stay. She is currently on 2.5 liters of nasal cannula. She was hypotensive, but states that this is normal for her and she is asymptomatic with low blood pressure. Her H&H continued to stay low. She underwent a transfusion of 2 units on 09/19/2017. She had a CT-guided thoracentesis on 09/21/2017 that pulled off 900 cc of straw-colored fluid. She has an air mattress and a Xavier catheter secondary to some noted skin breakdown on her coccyx. She has a colostomy that was placed a little over a month ago with a healing surgical wound to her abdomen. She is very motivated to return back to inpatient rehab and is steadily making progress with therapy. She is moderately independent with mobility and independent with ADLs prior to these recent illnesses. She is currently set up for total assist with her ADLs, moderate to total assist with her mobility. She plans to return back to her prior level of functioning before these recent hospital stays. COMORBIDITIES: In this patient include sepsis, systolic heart failure, pneumonia, [id number] respiratory failure and hypercapnia, dysphagia, aphonia, metabolic encephalopathy, ostomy, leukocytosis, anemia, hypothyroidism, debility, acute COPD exacerbation, chronic asthma, chronic emphysema, nicotine dependence and withdrawal, critical illness myopathy, peritonitis, perforated viscus, pneumonia, and malnutrition. PAST MEDICAL HISTORY: Significant for sinus problems, thyroid problems, COPD, emphysema, asthma, colostomy problems secondary to a perforated viscus, depression, kidney stones, chronic back pain, eczema, and history of tobacco use. PAST SURGICAL HISTORY: Includes appendectomy, tonsillectomy and adenoidectomy, hysterectomy, and colostomy. ALLERGIES: IODINE, any type of SULFA PRODUCTS, and AVELOX. CURRENT MEDICATIONS: She is on a prednisone tapering dose at this time. She is on Protonix 40 mg b.i.d., Synthroid 125 mcg daily, Floranex 460 mg daily, Lexapro 5 mg daily, polyethylene glycol 17 grams in 8 ounces of water daily. She is on albuterol updrafts 3 cc per respiratory therapy q.4 hours p.r.n., HISTORY AND PHYSICAL [id number] MARCELO PATTERSON Barbara Pulmicort 0.5 mg b.i.d., Iota 1 tab q.6 hours p.r.n. pain, Mucinex D 1 tab b.i.d. She is on Maxipime which her last dose was actually on 10/03/2017, aspirin chewable 81 mg daily, Brovana 15 mg b.i.d., and Tylenol 500 mg q.h.s. HABITS: No current alcohol or tobacco use. She does have a history of tobacco use. FAMILY HISTORY: Noncontributory. SOCIAL HISTORY: The patient hopes to return back home and get back to her prior level of functioning. REVIEW OF SYSTEMS: GENERAL: Does complain of weakness and fatigue. HEENT: Denies cold, cough, or congestion. CARDIOVASCULAR: Denies any chest pain. PHYSICAL EXAMINATION: VITAL SIGNS: Stable, afebrile. GENERAL: A thin female in no acute distress, alert upon exam. HEENT: Normocephalic and atraumatic. Mucosa moist. NECK: Supple. No lymphadenopathy. LUNGS: Clear at this time. HEART: Regular rate and rhythm. ABDOMEN: Soft. She does have a noted colostomy. EXTREMITIES: No clubbing, cyanosis, or edema. NEUROLOGIC: Seems intact. LABORATORY DATA: Her white count is 9.9, H&H 8.2 and 27.1, and platelet count was 394. Sodium 134, potassium 4.0, BUN and creatinine of 14 and 0.4, and blood sugar was noted to be 78. ASSESSMENT: This is a 62-year-old female patient admitted to the rehab with a working diagnosis of critical illness myopathy secondary to a prolonged vent and also sepsis and a recent colostomy. The patient has potential to make improvement. We instituted the following multidisciplinary therapies including to, but not limited to physical, occupational, respiratory, speech, nutritional services, prosthetics and orthotics. Given her complex medical condition and risk of further medical complications, a care home facility is not really appropriate for this patient. ASSESSMENT: The patient is admitted to inpatient rehab for the following disciplines: A. Physical therapy to improve gait, all transfer skills and bed mobility to a modified independent level. B. Occupational therapy to improve activities of daily living to modified independent level. C. Case management to assist with discharge planning and placement options. D. Nutrition to assist with nutritional needs. E. Rehabilitation nursing to assist in monitoring the patient's underlying medical conditions and to assist with any type of bowel or bladder management. 1. The patient's current medication and medical care will be continued. 2. The patient will be placed on standard fall precautions. 3. The patient's estimated length of stay is approximately 7 to 10 days. 4. Discuss this patient during care team staff meeting this week. HISTORY AND PHYSICAL [id number] MARCELO PATTERSON TRANSINT:[id number] Voice Confirmation ID: [id number] DOCUMENT ID: [id number] GUILLERMO notes whether there has been none or any medical/functional change since admission: - NO CHANGE SINCE PRESCREEN. GUILLERMO attests patient continues to be appropriate for IRF: - CONTINUES TO BE APPROPRIATE. RAKESH URBINA MD at 1802 CC: [id number] DICTATION DATE: 10/04/17 0821 SYSTEM SUPPORT DEVELOPER: 10/04/17 1036 ADM IN [facility] [address] [place] [address]
[~2017-10-03 15:45] MED LIST changes: +ALBUTEROL2.5 MG/3 M INH; +BROVANA15 MCG/2 M INH; +MAXIPIME 2 GM/D52 G1 IV; +PROTONIX40 MG PO; +PULMICORT0.5 MG/21 UPD
[2017-10-03 19:00] VITALS: BP 80/43
[2017-10-03 21:17] VITALS: BP 80/43; BMI 25.3
[2017-10-04 06:33] LABS: BASOPHILS 0.2 % (0-2); EOSINOPHILS 1.9 % (0-7); HEMATOCRIT 27.1 % (36.0-48.0); HEMOGLOBIN 8.2 g/dL (12-16); IMMATURE GRANULOCYTES 3.6 % (0-5); LYMPHOCYTES 17.4 % (15-50); MCHC 30.3 g/dL (31.0-37.0); MCV 95.8 fL (80.0-100.0); MEAN PLATELET VOLUME 8.9 fL (7.4-10.4); MONOCYTES 9.2 % (2-11); NEUTROPHILS 67.7 % (40-80); PLATELET COUNT 394 10x3/uL (130-400); RBC 2.83 10x6/uL (4.00-5.40); RDW 17.1 % (11.5-14.5)
[2017-10-04 06:34] LABS: WBC 9.9 10x3/uL (4.8-10.8)
[2017-10-04 07:12] LABS: CALC OSMOLALITY 267 mosm/kg (275-300); CALCIUM 9.4 mg/dL (8.5-10.1); CARBON DIOXIDE 31.2 mmol/L (21.0-32.0); CHLORIDE - SERUM 99 mmol/L (98-107); CREATININE - SERUM 0.4 mg/dL (0.6-1.3); GLUCOSE 78 mg/dL (74-106); SODIUM 134 mmol/L (136-145); UREA NITROGEN 14 mg/dL (7-18); eGFR NON AFRICAN AMERICAN > 90 mL/min (90-120)
[2017-10-04 07:45] VITALS: BP 86/41
[2017-10-04 10:42] VITALS: BMI 25.2
[2017-10-04 21:40] VITALS: BP 96/52
[2017-10-05 08:00] VITALS: BP 94/49
[2017-10-05 20:10] VITALS: BP 92/50
[2017-10-06 05:44] LABS: BASOPHILS 0.2 % (0-2); EOSINOPHILS 2.6 % (0-7); HEMATOCRIT 26.9 % (36.0-48.0); HEMOGLOBIN 8.3 g/dL (12-16); IMMATURE GRANULOCYTES 3.8 % (0-5); LYMPHOCYTES 21.9 % (15-50); MCH 29.5 pg (26.0-34.0); MCHC 30.9 g/dL (31.0-37.0); MCV 95.7 fL (80.0-100.0); MEAN PLATELET VOLUME 9.2 fL (7.4-10.4); MONOCYTES 9.4 % (2-11); NEUTROPHILS 62.1 % (40-80); PLATELET COUNT 385 10x3/uL (130-400); RBC 2.81 10x6/uL (4.00-5.40); RDW 16.9 % (11.5-14.5); WBC 8.9 10x3/uL (4.8-10.8)
[2017-10-06 06:00] LABS: CALC OSMOLALITY 267 mosm/kg (275-300); CALCIUM 9.4 mg/dL (8.5-10.1); CARBON DIOXIDE 33.6 mmol/L (21.0-32.0); CHLORIDE - SERUM 98 mmol/L (98-107); CREATININE - SERUM 0.5 mg/dL (0.6-1.3); GLUCOSE 80 mg/dL (74-106); POTASSIUM - SERUM 4.4 mmol/L (3.5-5.1); SODIUM 134 mmol/L (136-145); UREA NITROGEN 16 mg/dL (7-18); eGFR NON AFRICAN AMERICAN > 90 mL/min (90-120)
[2017-10-06 08:00] VITALS: BP 98/50
[2017-10-06 19:00] VITALS: BP 86/43
[2017-10-07 08:00] VITALS: BP 92/045
[2017-10-07 19:35] VITALS: BP 97/46
[2017-10-08 08:53] VITALS: BP 96/52
[2017-10-08 19:49] VITALS: BP 74/37
[2017-10-09 06:07] LABS: BASOPHILS 0.1 % (0-2); EOSINOPHILS 2.3 % (0-7); HEMATOCRIT 24.8 % (36.0-48.0); HEMOGLOBIN 7.6 g/dL (12-16); IMMATURE GRANULOCYTES 2.6 % (0-5); LYMPHOCYTES 17.5 % (15-50); MCH 29.1 pg (26.0-34.0); MCHC 30.6 g/dL (31.0-37.0); MEAN PLATELET VOLUME 8.8 fL (7.4-10.4); MONOCYTES 8.6 % (2-11); NEUTROPHILS 68.9 % (40-80); PLATELET COUNT 347 10x3/uL (130-400); RBC 2.61 10x6/uL (4.00-5.40); RDW 16.8 % (11.5-14.5); WBC 8.9 10x3/uL (4.8-10.8)
[2017-10-09 06:35] LABS: CALC OSMOLALITY 268 mosm/kg (275-300); CALCIUM 9.3 mg/dL (8.5-10.1); CARBON DIOXIDE 34.8 mmol/L (21.0-32.0); CHLORIDE - SERUM 97 mmol/L (98-107); CREATININE - SERUM 0.4 mg/dL (0.6-1.3); GLUCOSE 82 mg/dL (74-106); POTASSIUM - SERUM 4.1 mmol/L (3.5-5.1); SODIUM 135 mmol/L (136-145); UREA NITROGEN 13 mg/dL (7-18); eGFR NON AFRICAN AMERICAN > 90 mL/min (90-120)
[2017-10-09 08:00] VITALS: BP 91/46
[2017-10-09 20:00] VITALS: BP 99/52
[2017-10-10 08:00] VITALS: BP 100/61
[2017-10-10 21:55] VITALS: BP 96/56
[2017-10-11 06:17] LABS: BASOPHILS 0.2 % (0-2); IMMATURE GRANULOCYTES 3.8 % (0-5); LYMPHOCYTES 16.8 % (15-50); MCHC 32.1 g/dL (31.0-37.0); MCV 93.5 fL (80.0-100.0); MONOCYTES 9.8 % (2-11); NEUTROPHILS 67.4 % (40-80); PLATELET COUNT 292 10x3/uL (130-400); RDW 17.2 % (11.5-14.5); WBC 8.9 10x3/uL (4.8-10.8)
[2017-10-11 06:20] LABS: CALC OSMOLALITY 270 mosm/kg (275-300); CALCIUM 9.4 mg/dL (8.5-10.1); CHLORIDE - SERUM 98 mmol/L (98-107); CREATININE - SERUM 0.3 mg/dL (0.6-1.3); GLUCOSE 83 mg/dL (74-106); HEMATOCRIT 34.6 % (36.0-48.0); HEMOGLOBIN 11.1 g/dL (12-16); POTASSIUM - SERUM 3.7 mmol/L (3.5-5.1); SODIUM 136 mmol/L (136-145); UREA NITROGEN 13 mg/dL (7-18); eGFR NON AFRICAN AMERICAN > 90 mL/min (90-120)
[2017-10-11 08:32] VITALS: BP 87/52
[2017-10-11 21:55] VITALS: BP 80/45
[2017-10-12 08:00] VITALS: BP 99/61
[2017-10-12 21:16] VITALS: BP 93/46
[2017-10-13 06:45] LABS: BASOPHILS 0.1 % (0-2); EOSINOPHILS 1.4 % (0-7); HEMATOCRIT 31.7 % (36.0-48.0); HEMOGLOBIN 9.8 g/dL (12-16); IMMATURE GRANULOCYTES 4.1 % (0-5); LYMPHOCYTES 10.3 % (15-50); MCH 28.9 pg (26.0-34.0); MCHC 30.9 g/dL (31.0-37.0); MCV 93.5 fL (80.0-100.0); MEAN PLATELET VOLUME 9.1 fL (7.4-10.4); NEUTROPHILS 73.1 % (40-80); PLATELET COUNT 277 10x3/uL (130-400); RBC 3.39 10x6/uL (4.00-5.40); RDW 16.4 % (11.5-14.5)
[2017-10-13 06:53] LABS: WBC 11.2 10x3/uL (4.8-10.8)
[2017-10-13 06:57] LABS: CALC OSMOLALITY 269 mosm/kg (275-300); CALCIUM 8.8 mg/dL (8.5-10.1); CARBON DIOXIDE 31.6 mmol/L (21.0-32.0); CHLORIDE - SERUM 97 mmol/L (98-107); GLUCOSE 71 mg/dL (74-106); SODIUM 136 mmol/L (136-145); UREA NITROGEN 13 mg/dL (7-18)
[2017-10-13 06:58] LABS: CREATININE - SERUM 0.4 mg/dL (0.6-1.3); POTASSIUM - SERUM 4.3 mmol/L (3.5-5.1); eGFR NON AFRICAN AMERICAN > 90 mL/min (90-120)
[2017-10-13 08:32] VITALS: BP 81/36
[2017-10-13 19:21] VITALS: BP 102/54
[2017-10-14 14:24] VITALS: BP 96/47
[2017-10-14 19:13] VITALS: BP 97/58
[2017-10-15 08:34] VITALS: BP 96/48
[2017-10-15 21:25] VITALS: BP 101/52
[2017-10-16 06:04] LABS: BASOPHILS 0.3 % (0-2); EOSINOPHILS 1.1 % (0-7); HEMATOCRIT 33.2 % (36.0-48.0); HEMOGLOBIN 10.5 g/dL (12-16); IMMATURE GRANULOCYTES 6.4 % (0-5); LYMPHOCYTES 10.3 % (15-50); MCH 29.2 pg (26.0-34.0); MCHC 31.6 g/dL (31.0-37.0); MCV 92.2 fL (80.0-100.0); MEAN PLATELET VOLUME 9.2 fL (7.4-10.4); MONOCYTES 8.4 % (2-11); NEUTROPHILS 73.5 % (40-80); RDW 15.7 % (11.5-14.5); WBC 12.3 10x3/uL (4.8-10.8)
[2017-10-16 06:06] LABS: PLATELET COUNT 337 10x3/uL (130-400)
[2017-10-16 06:10] LABS: CALC OSMOLALITY 266 mosm/kg (275-300); CALCIUM 9.4 mg/dL (8.5-10.1); CARBON DIOXIDE 35.9 mmol/L (21.0-32.0); CHLORIDE - SERUM 96 mmol/L (98-107); CREATININE - SERUM 0.4 mg/dL (0.6-1.3); GLUCOSE 82 mg/dL (74-106); POTASSIUM - SERUM 4.4 mmol/L (3.5-5.1); SODIUM 134 mmol/L (136-145); UREA NITROGEN 13 mg/dL (7-18); eGFR NON AFRICAN AMERICAN > 90 mL/min (90-120)
[2017-10-16 08:00] VITALS: BP 95/54
[2017-10-16 22:10] VITALS: BP 89/46
[2017-10-17 08:16] VITALS: BP 99/53
[2017-10-17 20:30] VITALS: BP 91/56
[2017-10-18 07:01] LABS: BASOPHILS 0.1 % (0-2); EOSINOPHILS 0.7 % (0-7); HEMATOCRIT 32.9 % (36.0-48.0); HEMOGLOBIN 10.3 g/dL (12-16); LYMPHOCYTES 6.3 % (15-50); MCH 29.3 pg (26.0-34.0); MCHC 31.3 g/dL (31.0-37.0); MCV 93.5 fL (80.0-100.0); NEUTROPHILS 80.9 % (40-80); PLATELET COUNT 366 10x3/uL (130-400); RBC 3.52 10x6/uL (4.00-5.40); RDW 15.4 % (11.5-14.5); WBC 16.5 10x3/uL (4.8-10.8)
[2017-10-18 07:23] LABS: CALC OSMOLALITY 265 mosm/kg (275-300); CALCIUM 9.6 mg/dL (8.5-10.1); CARBON DIOXIDE 35.4 mmol/L (21.0-32.0); CHLORIDE - SERUM 94 mmol/L (98-107); CREATININE - SERUM 0.4 mg/dL (0.6-1.3); GLUCOSE 84 mg/dL (74-106); POTASSIUM - SERUM 5.7 mmol/L (3.5-5.1); SODIUM 134 mmol/L (136-145); UREA NITROGEN 10 mg/dL (7-18); eGFR NON AFRICAN AMERICAN > 90 mL/min (90-120)
[2017-10-18 08:07] VITALS: BP 92/56
[2017-10-18 09:40] LABS: CALCIUM 9.2 mg/dL (8.5-10.1); CARBON DIOXIDE 31.6 mmol/L (21.0-32.0); CHLORIDE - SERUM 93 mmol/L (98-107); SODIUM 131 mmol/L (136-145); UREA NITROGEN 10 mg/dL (7-18)
[2017-10-18 09:42] LABS: CALC OSMOLALITY 266 mosm/kg (275-300); CREATININE - SERUM 0.6 mg/dL (0.6-1.3); GLUCOSE 196 mg/dL (74-106); POTASSIUM - SERUM 4.4 mmol/L (3.5-5.1); eGFR NON AFRICAN AMERICAN > 90 mL/min (90-120)
[2017-10-18 21:25] VITALS: BP 93/55
[2017-10-18 22:52] LABS: APPEARANCE HAZY (CLEAR); BACTERIA MANY /hpf (NONE SEEN); BILIRUBIN NEGATIVE (NEGATIVE); COLOR YELLOW (YELLOW); EPITHELIAL CELLS 0-5 /hpf (0-5); GLUCOSE NEGATIVE (NEGATIVE); KETONE NEGATIVE (NEGATIVE); NITRITE POSITIVE (NEGATIVE); PROTEIN NEGATIVE (NEGATIVE); RED CELLS - URINE OCC /hpf (0-5); UROBILINOGEN NORMAL (NORMAL); WHITE CELLS - URINE 0-5 /hpf (0-5)
[2017-10-19 08:00] VITALS: BP 100/58
[2017-10-19 22:09] VITALS: BP 95/53
[2017-10-20 08:29] VITALS: BP 77/47
[2017-10-20 15:00] VITALS: Ht 162.6 cm; Wt 66.7 kg
[2017-10-20] MEDS ORDERED: MACROBID100 MG PO (15:39)
== END 2017-10-20 16:01 | disposition short-term general hospital (02) | DRG 91 ==
LOC: D.REHAB 15:45
PROVIDERS: Emergency Medicine
DX: G72.81 Critical illness myopathy (principal); A41.9 Sepsis, unspecified organism; J96.22 Acute and chronic respiratory failure with hypercapnia; J18.9 Pneumonia, unspecified organism; G93.41 Metabolic encephalopathy; K65.9 Peritonitis, unspecified; K65.1 Peritoneal abscess; J44.1 Chronic obstructive pulmonary disease with (acute) exacerbation; I50.20 Unspecified systolic (congestive) heart failure; F17.203 Nicotine dependence unspecified, with withdrawal; E46 Unspecified protein-calorie malnutrition; T81.4XXA Infection following a procedure, initial encounter; R49.1 Aphonia; E03.9 Hypothyroidism, unspecified; D64.9 Anemia, unspecified; R13.12 Dysphagia, oropharyngeal phase

== ENCOUNTER 2017-10-20 16:19 | Inpatient (IN) | payer MEDICARE, BC ==
[~2017-10-20] VITALS: Ht 152.4 cm; Wt 64.0 kg
--- NOTE | ~2017-10-20 | DS ---
PATIENT:MARCELO PATTERSON :51 MEDICAL RECORD: [id number] DISCHARGE SUMMARY ADMISSION DATE: 10/20/17 DISCHARGE DATE: 10/31/17 DATE OF ADMISSION: 10/20/2017. DATE OF DISCHARGE: 10/31/2017. ADMISSION DIAGNOSES: 1. Intra-abdominal abscess. 2. 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 3. Constipation. 4. Gastroesophageal reflux disease. 5. Sepsis. DISCHARGE DIAGNOSES: 1. Intraabdominal abscess. 2. 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 3. Constipation. 4. Gastroesophageal reflux disease. 5. Sepsis. PROCEDURE: 1. IR-guided drainage of intra-abdominal abscesses times 3. 2. PICC line placement on 10/30/2017 in the left upper extremity. CONSULTATIONS: To interventional radiology and infectious disease. REPORT OF HOSPITALIZATION: The patient was admitted to the hospital from inpatient rehabilitation secondary to abdominal distention with a CT scan showing multiple areas of abscess collections present nearly 3 months out from a Jordan's procedure for large bowel perforation secondary to severe constipation. The patient had been doing really well in rehab and was actually getting set up for discharge home when she became distended and these findings were noted on the CT. She is admitted to the inpatient floor. She was set up with a CT-guided drainage of the abscess pockets, originally 2 of the pockets were drained and over the next week, she had to have another pocket drained. She began to improve slowly. She was always tolerating a diet and her white count was stable, but elevated. Infectious disease was consulted to help set up a plan for this outpatient antibiotics. The patient's culture results grew Proteus and enterococcus. Eventually, it was decided to set the patient up with daily Invanz as an outpatient and so a PICC line was placed to accomplish this. At that time, the patient was doing well and felt to be stable for discharge home. She had [address] at the time of discharge. DISCHARGE INSTRUCTIONS: Return to clinic or call with any questions or concerns, fevers, chills, nausea, vomiting, or worsening abdominal pain. ACTIVITIES: As tolerated. DISCHARGE MEDICATIONS: Resume home medications excluding the Macrobid and starting Invanz. FOLLOWUP: In clinic with me in 1-2 weeks and follow up with interventional radiology in 1-2 weeks. DISCHARGE SUMMARY REPORT [id number] MARCELO PATTERSON S TRANSINT:[id number] Voice Confirmation ID: [id number] DOCUMENT ID: [id number] CALLUM PURCELL MD at 0922 CC: [id number] DICTATION DATE: 11/28/17 140 BRANCH SERVICE SPECIALIST: 11/28/17 1534 DIS IN 10/31/17 [place] [address] [facility], [facility]
--- NOTE | ~2017-10-20 | HEMODYNAMI ---
PATIENT:MARCELO PATTERSON MEDICAL RECORD: [id number] : 51 LOCATION:D.[facility] [place] ADMISSION DATE: 10/20/17 Generatedon:10/27/201711:59 Patient name: MARCELO PATTERSON Patient #: [id number] SSN: : 1955 Date of study: 10/27/2017 Page: Of Hemodynamic Procedure Report Patient Data Patient Demographics Procedure consent was obtained First Name: MARCELO Gender: Female Last Name: LEONARDO : 1955 [facility] Initial: S Age: 62 year(s) Patient #: [id number] Race: Unknown Additional ID: [id number] Contact details Address: [address] [place] [address] State: [place] City: [place] Zip code: [address] Past Medical History Allergies Allergen Reaction Date Comments Reported Iodine 05/03/2017 Other allergy 05/03/2017 Avelox, Benadryl, Advil Betadine 10/27/2017 Bactrim 10/27/2017 Admission Admission Data Admission Date: 10/20/2017 Admission Time: 16:19 Room #: D.2227 Weight (lbs.): 140 Weight (kg.): 63.5 Procedure Procedure Types Cath Procedure Peripheral Cath Diagnostic Procedure Cath Peripheral Abscess Abcess Abdomen Drain Procedure Description Procedure Date Procedure Date: 10/27/2017 Procedure Start Time: 11:54 Procedure Staff Name Function Jordan Dickson MD Performing Physician Syl Campos RT Canned Food Reconditioning Inspector Syl Campos RT Monitor Marjorie Gottlieb RN Nurse Jovan Kimbrough Nurse Luis Hutchison RT Scrub Procedure Data Cath Procedure Fluoroscopy Diagnostic fluoroscopy Total fluoroscopy Time: 0.3 time: 0.3 min min Diagnostic fluoroscopy Total fluoroscopy dose: 17 dose: 17 mGy mGy Contrast Material Contrast Material Type Amount (ml) Isovue 300 12 Procedure Medications Medication Administration Route Dosage Heparin Flush Bag added to field 1 bags (1000units/500ml NS) Oxygen NC 3 l/min Lidocaine 1% added to field 20 Hemodynamics Rest Heart Rate: 99 (bpm) Snapshots Pre Cath Intra NCS Post Cath Vital Signs Time Heart Resp SPO2 etCO2 NIBP Rhythm Pain Sedation Rate (ipm) (%) (mmHg) (mmHg) Status Level (bpm) 11:44:17 99 16 99 31.1 No Cuff NSR 0 (11) 10(A) , No pain 11:48:16 97 17 99 33.4 No Cuff NSR 0 (11) 10(A) , No pain 11:50:34 97 11 98 32.6 98/51(85) NSR 0 (11) 10(A) , No pain 11:54:33 96 9 96 39.5 102/60(77) NSR 0 (11) 10(A) , No pain 11:58:31 97 15 96 31.9 106/72(91) NSR 0 (11) 10(A) , No pain Medications Time Medication Route Dose Verified by Delivered Reason Notes Effectiveness by 11:39:12 Heparin Flush added 1 Jovan Dickson, used for Bag to bags Kaylan CONROY procedure (1000units/500ml field NS) 11:39:40 Oxygen NC 3 Jovan Aldana used for l/min Kaylan Kimbrough procedure 11:41:29 Lidocaine 1% added 20ml Jovan Dickson, to vial Kaylan CONROY field Procedure Log Time Note 10:24:38 Patient Weight : 140 lbs 10:25:11 Use device set IR Diagnostic 10:25:16 Sterile Angiographic Pack opened to sterile field. 10:25:17 Bag Decanter (2002S) opened to sterile field. 11:32:01 Time tracking: Regular hours 11:32:10 Plan of Care:Hemodynamics will remain stable., Cardiac rhythm will remain stable., Comfort level will be maintained., Respiratory function will remain adequate., Patient/ family verbilizes understanding of procedure., Procedure tolerated without complication., Recovers from procedure without complications.. 11:32:20 Patient received from Med/Surg to IR Alert and oriented. Tansferred to table in Supine position. 11:33:09 Correct patient and procedure confirmed by team. 11:33:11 Signed procedure consent form obtained from patient. 11:33:16 H&P Date Dictated: 10/27/2017 Within 30 days and on chart.. 11:33:26 Pre-procedure instructions explained to patient. 11:33:27 Pre-op teaching completed and patient verbalized understanding. 11:33:29 Family in waiting room. 11:33:33 Patient NPO since Midnight. :34:29 Patient allergic to Betadine 11:34:34 Patient allergic to Bactrim 11:35:19 Is the patient allergic to Iodine/contrast media? No. 11:35:24 Is patient on blood thinner?No 11:35:46 Patient diabetic? No. 11:36:17 - 11:36:18 ----Pre-sedation anethsthesia assessment.---- 11:36:22 Previous problem with sedation/anesthesia? No ? 11:36:28 Snore? Yes 11:36:30 Sleep apnea? No 11:36:33 Deviated septum? No 11:36:36 Opens mouth fully? Yes 11:36:38 Sticks out tongue? Yes 11:36:42 Airway obstruction? No ? 11:36:45 Dentures? No ? 11:36:48 - 11:37:01 IV patent on arrival in left forearm with D5/.45%NaCl at KVO. 11:37:56 Right abdomen area was prepped with chlora-prep and draped in sterile fashion 11:38:02 - 11:39:12 Heparin Flush Bag (1000units/500ml NS) 1 bags added to field was administered by Jordan Dickson MD; used for procedure; 11:39:40 Oxygen 3 l/min NC was administered by Jovan Kimbrough; used for procedure; 11:41:29 Lidocaine 1% 20ml vial added to field was administered by Jordan Dickson MD; ; 11:43:17 - 11:43:24 ECG and BP/O2 sat monitors applied to patient. 11:43:26 Vital chart was started 11:43:35 Baseline sample Acquired. 11:43:49 Full Disclosure recording started 11:43:50 - 11:49:06 Physician arrived 11:53:25 --------ALL STOP TIME OUT------ 11:53:25 Final Timeout: patient, procedure, and site verified with staff and physician. All members of the team are in agreement. 11:54:37 RAYMOND .035 15cm wire ([id number]) opened to sterile field. 11:54:50 Procedure started. 11:56:07 Contrast amount:Isovue 300 12ml. 11:56:11 Procedure ended.(Physican Out) 11:56:47 Fluoroscopy time 00.30 minutes. 11:56:57 Fluoroscopy dose: 17 mGy 11:56:57 Flurop Dose total: 17 11:57:03 Procedure and supply charges have been captured, reviewed, submitted an d are correct. 11:59:07 Vital chart was stopped Device Usage Item Name Manufacture Quantity Catalog Hospital Part Current Minimal Lot# / Number Charge Number Stock Stock Serial# Code Sterile Cardinal 1 [id number] Angiographic Health Pack Bag Decanter Microtek [id number] () Medical Inc. RAYMOND .035 [employer] 1 [id number] 15cm wire ([id number]) Signature Audit [facility] Stage Time Signature Unsigned Intra-Procedure 10/27/2017 Syl Campos 11:59:04 AM RT(R) Signatures Monitor : Syl Campos RT Signature : Date : Time : [place] [address] [place] [address]
[~2017-10-20 16:19] MED LIST changes: +MACROBID100 MG PO
[2017-10-21 00:14] VITALS: BP 86/51
[2017-10-21 06:33] VITALS: BP 181/69
[2017-10-21 12:31] VITALS: BP 101/54
[2017-10-21 15:24] VITALS: BMI 27.5
[2017-10-21 16:00] VITALS: BP 98/56
[2017-10-21 22:10] VITALS: BP 107/66
[2017-10-22 01:01] VITALS: BP 95/61
[2017-10-22 05:39] VITALS: BP 110/66
[2017-10-22 10:00] VITALS: BP 107/63
[2017-10-22 11:48] VITALS: BP 92/61
[2017-10-22 16:01] VITALS: BP 101/60
[2017-10-22 21:55] VITALS: BP 102/64
[2017-10-23 00:40] VITALS: BP 101/62
[2017-10-23 04:50] VITALS: BP 101/66
[2017-10-23 08:19] VITALS: BP 150/87; BP 95/59
[2017-10-23 12:54] VITALS: BP 106/74
[2017-10-23 16:00] VITALS: BP 107/65
[2017-10-23 20:00] VITALS: BP 106/65
[2017-10-24 04:00] VITALS: BP 100/62
[2017-10-24 08:13] VITALS: BP 100/59
[2017-10-24 12:53] VITALS: BP 116/71
[2017-10-24 20:00] VITALS: BP 100/050
[2017-10-25 04:00] VITALS: BP 100/55
[2017-10-25 04:43] LABS: BASOPHILS 0.4 % (0-2); EOSINOPHILS 0.8 % (0-7); HEMATOCRIT 32.6 % (36.0-48.0); HEMOGLOBIN 10.1 g/dL (12-16); IMMATURE GRANULOCYTES 12.9 % (0-5); LYMPHOCYTES 10.1 % (15-50); MCH 28.9 pg (26.0-34.0); MCV 93.4 fL (80.0-100.0); MEAN PLATELET VOLUME 8.8 fL (7.4-10.4); MONOCYTES 10.4 % (2-11); NEUTROPHILS 65.4 % (40-80); RBC 3.49 10x6/uL (4.00-5.40); RDW 14.9 % (11.5-14.5); WBC 15.1 10x3/uL (4.8-10.8)
[2017-10-25 04:44] LABS: PLATELET COUNT 579 10x3/uL (130-400)
[2017-10-25 05:17] LABS: CALC OSMOLALITY 263 mosm/kg (275-300); CALCIUM 9.2 mg/dL (8.5-10.1); CARBON DIOXIDE 29.7 mmol/L (21.0-32.0); CHLORIDE - SERUM 98 mmol/L (98-107); CREATININE - SERUM 0.5 mg/dL (0.6-1.3); POTASSIUM - SERUM 4.1 mmol/L (3.5-5.1); SODIUM 133 mmol/L (136-145); UREA NITROGEN 6 mg/dL (7-18); eGFR NON AFRICAN AMERICAN > 90 mL/min (90-120)
[2017-10-25 05:18] LABS: GLUCOSE 93 mg/dL (74-106)
[2017-10-25 08:00] VITALS: BP 93/60
[2017-10-25 12:09] VITALS: BP 100/60
[2017-10-25 16:50] VITALS: BP 103/63
[2017-10-25 20:00] VITALS: BP 98/65
[2017-10-26 04:00] VITALS: BP 109/89
[2017-10-26 08:08] VITALS: BP 99/54
[2017-10-26 11:43] VITALS: BP 104/66
[2017-10-26 15:41] VITALS: BP 97/54
[2017-10-26 20:00] VITALS: BP 90/55
[2017-10-27] VITALS: BP 97/48
[2017-10-27 04:00] VITALS: BP 99/56
[2017-10-27 05:31] LABS: BASOPHILS 0.2 % (0-2); EOSINOPHILS 0.5 % (0-7); HEMATOCRIT 36.3 % (36.0-48.0); HEMOGLOBIN 11.3 g/dL (12-16); IMMATURE GRANULOCYTES 11.3 % (0-5); LYMPHOCYTES 9.3 % (15-50); MCH 29.4 pg (26.0-34.0); MCHC 31.1 g/dL (31.0-37.0); MCV 94.5 fL (80.0-100.0); MEAN PLATELET VOLUME 8.9 fL (7.4-10.4); MONOCYTES 8.6 % (2-11); NEUTROPHILS 70.1 % (40-80); PLATELET COUNT 654 10x3/uL (130-400); RBC 3.84 10x6/uL (4.00-5.40); RDW 14.9 % (11.5-14.5)
[2017-10-27 06:00] LABS: APTT 27.3 SECONDS (22.8-39.4); INR 1.03 (0.85-1.17); PROTIME 13.1 SECONDS (11.6-15.0)
[2017-10-27 06:05] LABS: CALC OSMOLALITY 261 mosm/kg (275-300); CALCIUM 9.1 mg/dL (8.5-10.1); CARBON DIOXIDE 27.1 mmol/L (21.0-32.0); CHLORIDE - SERUM 94 mmol/L (98-107); CREATININE - SERUM 0.4 mg/dL (0.6-1.3); GLUCOSE 77 mg/dL (74-106); POTASSIUM - SERUM 4.3 mmol/L (3.5-5.1); SODIUM 132 mmol/L (136-145); UREA NITROGEN 7 mg/dL (7-18); eGFR NON AFRICAN AMERICAN > 90 mL/min (90-120)
[2017-10-27 08:12] VITALS: BP 96/52
[2017-10-27 12:30] VITALS: BP 105/63
[2017-10-27 15:58] VITALS: BP 91/52
[2017-10-27 20:00] VITALS: BP 103/61
[2017-10-28] VITALS: BP 95/62
[2017-10-28 04:00] VITALS: BP 83/47
[2017-10-28 07:06] VITALS: BP 96/55
[2017-10-28 11:04] VITALS: BP 98/60
[2017-10-28 15:11] VITALS: BP 107/60
[2017-10-28 21:12] VITALS: BP 91/53
[2017-10-29 00:59] VITALS: BP 87/49
[2017-10-29 04:59] LABS: BASOPHILS 0.4 % (0-2); EOSINOPHILS 0.9 % (0-7); HEMATOCRIT 31.5 % (36.0-48.0); HEMOGLOBIN 9.6 g/dL (12-16); IMMATURE GRANULOCYTES 9.6 % (0-5); LYMPHOCYTES 10.1 % (15-50); MCH 28.7 pg (26.0-34.0); MCHC 30.5 g/dL (31.0-37.0); MEAN PLATELET VOLUME 8.7 fL (7.4-10.4); RBC 3.35 10x6/uL (4.00-5.40); RDW 14.7 % (11.5-14.5); WBC 16.4 10x3/uL (4.8-10.8)
[2017-10-29 05:00] LABS: PLATELET COUNT 481 10x3/uL (130-400)
[2017-10-29 05:05] VITALS: BP 102/57
[2017-10-29 05:23] LABS: CALC OSMOLALITY 262 mosm/kg (275-300); CALCIUM 9.4 mg/dL (8.5-10.1); CARBON DIOXIDE 29.7 mmol/L (21.0-32.0); CHLORIDE - SERUM 95 mmol/L (98-107); CREATININE - SERUM 0.5 mg/dL (0.6-1.3); GLUCOSE 90 mg/dL (74-106); POTASSIUM - SERUM 4.1 mmol/L (3.5-5.1); SODIUM 133 mmol/L (136-145); eGFR NON AFRICAN AMERICAN > 90 mL/min (90-120)
[2017-10-29 05:25] LABS: UREA NITROGEN 5 mg/dL (7-18)
[2017-10-29 08:18] VITALS: BP 92/57
[2017-10-29 12:42] VITALS: BP 92/53
[2017-10-29 16:22] VITALS: BP 98/57
[2017-10-29 21:31] VITALS: BP 94/60
[2017-10-30 00:50] VITALS: BP 92/54
[2017-10-30 05:43] VITALS: BP 94/64
[2017-10-30 09:59] VITALS: BP 100/61
[2017-10-30 16:48] VITALS: BP 94/56
[2017-10-30 19:50] VITALS: Ht 152.4 cm; Wt 64.0 kg
[2017-10-30 20:00] VITALS: BP 88/47
[2017-10-31 04:00] VITALS: BP 132/78
[2017-10-31 08:51] VITALS: BP 93/49
[2017-10-31 13:24] VITALS: BP 93/55
== END 2017-10-31 16:50 | disposition home health service (06) | DRG 862 ==
LOC: D.MS 16:19
PROVIDERS: General Practice; Radiology Diagnostic Radiology; Surgery
PROC: 0D9W30Z Drainage of Peritoneum with Drainage Device, Percutaneous Approach (ICD-10-PCS; principal; 2017-10-20 15:30)
PROC: 0D9W30Z Drainage of Peritoneum with Drainage Device, Percutaneous Approach (ICD-10-PCS; 2017-10-27)
PROC: 02HV33Z Insertion of Infusion Device into Superior Vena Cava, Percutaneous Approach (ICD-10-PCS; 2017-10-30)
PROC: B548ZZA Ultrasonography of Superior Vena Cava, Guidance (ICD-10-PCS; 2017-10-30)
DX: T81.4XXA Infection following a procedure, initial encounter (principal); K65.1 Peritoneal abscess; K21.9 Gastro-esophageal reflux disease without esophagitis; J44.9 Chronic obstructive pulmonary disease, unspecified; E03.9 Hypothyroidism, unspecified

== ENCOUNTER 2017-11-02 10:15 | Outpatient (CLI) | payer MEDICARE, BC ==
[~2017-11-02] VITALS: Ht 152.4 cm; Wt 63.6 kg
--- NOTE | ~2017-11-02 | HEMODYNAMI ---
PATIENT:MARCELO PATTERSON MEDICAL RECORD: [id number] : 51 LOCATION:[facility] ADMISSION DATE: 11/02/17 Generatedon:11/02/201713:37 Patient name: MARCELO PATTERSON Patient #: [id number] SSN: : 1955 Date of study: 11/02/2017 Page: Of Hemodynamic Procedure Report Patient Data Patient Demographics Procedure consent was obtained First Name: MARCELO Gender: Female Last Name: LEONARDO : 1955 [facility] Initial: S Age: 62 year(s) Patient #: [id number] Race: Unknown Additional ID: [id number] Contact details Address: [address] [place] [address] State: [place] City: [place] Zip code: [address] Past Medical History Allergies Allergen Reaction Date Comments Reported Iodine 05/03/2017 Other allergy 05/03/2017 Avelox, Benadryl, Advil Betadine 10/27/2017 Bactrim 10/27/2017 Admission Admission Data Admission Date: 11/02/2017 Admission Time: 10:15 Procedure Procedure Types Cath Procedure Peripheral Cath Diagnostic Procedure Abscess Abscessogram Procedure Description Procedure Date Procedure Date: 11/02/2017 Procedure Start Time: 13:11 Procedure End Time: 13:28 Procedure Staff Name Function Luis Hutchison RT Scrub Ajay Cruz MD Performing Physician Flaquita Bautista RT Monitor Marjorie Gottlieb RN Nurse Jovan Kimbrough Nurse Procedure Data Cath Procedure Fluoroscopy Diagnostic fluoroscopy Total fluoroscopy Time: 0.5 time: 0.5 min min Diagnostic fluoroscopy Total fluoroscopy dose: 7 dose: 7 mGy mGy Contrast Material Contrast Material Type Amount (ml) Isovue 300 20 Procedure Medications Medication Administration Route Dosage Lidocaine 1% added to field 20 Versed I.V. 2 mg Fentanyl I.V. 100 mcg Heparin Flush Bag added to field 1 bags (1000units/500ml NS) Heparin Flush Bag added to field 1 bags (1000units/500ml NS) Hemodynamics Rest Heart Rate: 76 (bpm) Snapshots Pre Cath Intra NCS Post Cath Vital Signs Time Heart Resp SPO2 etCO2 NIBP Rhythm Pain Status Sedation Rate (ipm) (%) (mmHg) (mmHg) Level (bpm) 12:50:33 104 14 98 0 98/80(88) NSR 0 (11) , No 10(A) pain 12:54:37 99 20 99 0 113/73(95) NSR 2 (11) , 10(A) Uncomfortable 12:58:42 98 19 99 0 109/70(80) NSR 2 (11) , 10(A) Uncomfortable 13:02:48 98 29 100 0 108/67(88) NSR 2 (11) , 10(A) Uncomfortable 13:06:54 98 16 100 0 107/74(88) NSR 2 (11) , 10(A) Uncomfortable 13:11:00 95 18 98 0 113/74(96) NSR 2 (11) , 10(A) Uncomfortable 13:15:10 102 20 0 112/69(92) NSR 0 (11) , No 10(A) pain 13:19:15 102 12 99 0 106/67(85) NSR 0 (11) , No 10(A) pain 13:23:21 102 4 0 102/74(82) NSR 0 (11) , No 10(A) pain 13:27:29 0 98/65(80) NSR 0 (11) , No 10(A) pain Medications Time Medication Route Dose Verified Delivered Reason Notes Effect iveness by by 13:03:06 Lidocaine 1% added 20ml Marjorie to vial Bull medel RN 13:13:27 Versed I.V. 2 mg Ajay Amador for Nancy Gottlieb RN sedation 13:13:43 Fentanyl I.V. 100 Ajay Amador for mcg Nancy Gottlieb RN sedation 13:27:05 Heparin Flush added 1 Marjorie Bag to bags Bull (1000units/500ml field STODDARD NS) 13:27:15 Heparin Flush added 1 Marjorie Bag to bags Bull (1000units/500ml field STODDARD NS) Procedure Log Time Note 12:42:33 Luis Hutchison RT (R) (CV) sent for patient. Start room use. 12:42:36 Time tracking: Regular hours 12:42:46 Plan of Care:Hemodynamics will remain stable., Cardiac rhythm will remain stable., Comfort level will be maintained., Respiratory function will remain adequate., Patient/ family verbilizes understanding of procedure., Procedure tolerated without complication., Recovers from procedure without complications.. 12:43:00 Patient received from Outpatients to IR Alert and oriented. Tansferred to table in Supine position. 12:43:05 Correct patient and procedure confirmed by team. 12:43:10 Signed procedure consent form obtained from patient. 12:43:13 ECG and BP/O2 sat monitors applied to patient. 12:43:16 Full Disclosure recording started 12:43:17 - 12:43:41 H&P Date Dictated: 11/02/2017 H&P Addendum completed by physician on day of procedure. (MUST COMPLETE FOR ALL OUTPATIENTS). 12:43:44 Pre-procedure instructions explained to patient. 12:43:46 Pre-op teaching completed and patient verbalized understanding. 12:43:58 Family unavailable. 12:44:02 Patient NPO since Midnight. 12:45:34 Allergic to topical iodine, sulfa drugs, abalox 12:45:54 Is patient on blood thinner?No 12:46:03 Patient diabetic? No. 12:46:07 - 12:46:09 ----Pre-sedation anethsthesia assessment.---- 12:46:26 Previous problem with sedation/anesthesia? No ? 12:46:30 Snore? Yes 12:46:34 Sleep apnea? No 12:46:37 Deviated septum? No 12:46:39 Opens mouth fully? Yes 12:46:41 Sticks out tongue? Yes 12:46:45 Airway obstruction? No ? 12:46:47 - 12:46:48 Dentures? No ? 12:49:32 Vital chart was started 12:49:36 Baseline sample Acquired. 12:50:30 Patient pain scale 6/10 right side of abdomen. 12:51:06 IV patent on arrival in Left upper arm with 0.9% NaCl at [facility]. 12:51:39 Left abdomen area was prepped with chlora-prep and draped in sterile fashion 12:52:34 Prep to include both left drain sites 12:52:57 Alarms reviewed by R. N. 12:53:14 Sharps counted by scrub and verified by R.N. 13:01:03 Use device set IR Diagnostic 13:01:05 Sterile Angiographic Pack opened to sterile field. 13:01:06 Bag Decanter (2002S) opened to sterile field. 13:03:06 Lidocaine 1% 20ml vial added to field was administered by ; ; 13:09:46 Physician arrived 13:09:47 --------ALL STOP TIME OUT------ 13:09:49 Final Timeout: patient, procedure, and site verified with staff and physician. All members of the team are in agreement. 13:09:58 Left abdomen site verified by team. 13:10:53 Procedure started. 13:11:05 Local anesthetic to Abdominal area with Lidocaine 1% by Ajay Cruz MD.INITIAL ACCESS ONLY 13:13:27 Versed 2 mg I.V. was administered by Marjorie Gottlieb RN; for sedation; 13:13:36 Contast is injected to tube. 13:13:43 Fentanyl 100 mcg I.V. was administered by Marjorie Gottlieb RN; for sedation; 13:14:25 First tube is discontinued. 13:16:35 Contrast is injected into 2nd tube. 13:16:42 Procedure ended.(Physican Out) 13:17:25 BAG, DRAINAGE EMPTY 600ML W/EVIE ([id number]) opened to sterile field. 13:18:09 Fluoroscopy time 00.50 minutes. 13:18:16 Fluoroscopy dose: 7 mGy 13:18:16 Flurop Dose total: 7 13:20:55 Contrast amount:Isovue 300 20ml. 13:21:18 Sharps counted by scrub and verified by R.N. 13:21:29 Insertion/operative site no bleeding no hematoma. 13:21:39 Post-op/insertion site Left Abdominal area dressed using a 4 x 4 and Tegaderm. 13:21:50 Post procedure instruction explained to patient.Patient verbalizes understanding. 13:21:56 Procedure and supply charges have been captured, reviewed, submitted an d are correct. 13:27:05 Heparin Flush Bag (1000units/500ml NS) 1 bags added to field was administered by ; ; 13:27:15 Heparin Flush Bag (1000units/500ml NS) 1 bags added to field was administered by ; ; 13:28:27 Vital chart was stopped 13:28:29 See physician's report for complete and final results. 13:28:37 Report given to Outpatients. 13:28:49 Patient transfered to Outpatients with Stretcher. 13:28:55 Full Disclosure recording stopped 13:28:55 Procedure ended. Device Usage Item Name Manufacture Quantity Catalog Hospital Part Current Minimal Lot# / Number Charge Number Stock Stock Serial# Code Sterile Cardinal 1 [id number] 5 Angiographic Health Pack Bag Decanter Microtek 1 [id number] 5 (2001S) Medical Inc. BAG, Merit 1 [id number] 5 [id number] DRAINAGE Medical EMPTY 600ML W/EVIE ([id number]) Signature Audit [place] Stage Time Signature Unsigned Intra-Procedure 11/02/2017 Flaquita Hutchison RT 1:29:42 PM Lily RT (R) (CV) 11/02/2017 (R) (CV) 1:36:14 PM Intra-Procedure 11/02/2017 Luis 1:37:40 PM Kianna RT (R) (CV) Signatures Monitor : Flaquita Signature : Lily RT Date : Time : [facility] [address] [place] [address]
[2017-11-02 11:25] VITALS: BP 92/52; Ht 152.4 cm; Wt 63.6 kg
[2017-11-02 12:12] LABS: APTT 26.3 SECONDS (22.8-39.4); INR 1.05 (0.85-1.17); PROTIME 13.3 SECONDS (11.6-15.0)
[2017-11-02 12:15] LABS: BASOPHILS 0.2 % (0-2); EOSINOPHILS 0.9 % (0-7); HEMATOCRIT 29.7 % (36.0-48.0); HEMOGLOBIN 9.3 g/dL (12-16); IMMATURE GRANULOCYTES 4.7 % (0-5); LYMPHOCYTES 10.7 % (15-50); MCH 29.2 pg (26.0-34.0); MCHC 31.3 g/dL (31.0-37.0); MCV 93.4 fL (80.0-100.0); MEAN PLATELET VOLUME 8.9 fL (7.4-10.4); MONOCYTES 9.4 % (2-11); NEUTROPHILS 74.1 % (40-80); PLATELET COUNT 454 10x3/uL (130-400); RBC 3.18 10x6/uL (4.00-5.40); RDW 14.8 % (11.5-14.5)
[2017-11-02 12:16] LABS: CALC OSMOLALITY 268 mosm/kg (275-300); CALCIUM 9.4 mg/dL (8.5-10.1); CARBON DIOXIDE 31.4 mmol/L (21.0-32.0); CHLORIDE - SERUM 97 mmol/L (98-107); CREATININE - SERUM 0.5 mg/dL (0.6-1.3); GLUCOSE 84 mg/dL (74-106); POTASSIUM - SERUM 3.7 mmol/L (3.5-5.1); SODIUM 136 mmol/L (136-145); UREA NITROGEN 7 mg/dL (7-18); eGFR NON AFRICAN AMERICAN > 90 mL/min (90-120)
== END 2017-11-02 16:20 | disposition home or self-care (01) ==
LOC: D.OPS 10:15 → D.RAD 10:15 → D.OPS 16:20
PROVIDERS: Specialist
DX: K65.1 Peritoneal abscess (principal); Z01.812 Encounter for preprocedural laboratory examination; K21.9 Gastro-esophageal reflux disease without esophagitis; J44.9 Chronic obstructive pulmonary disease, unspecified

== ENCOUNTER → 2017-11-06 13:33 | Outpatient (CLI) | payer MEDICARE, BC ==
[2017-11-02 11:25] VITALS: BMI 27.3
[2017-11-06 13:43] LABS: BASOPHILS 0.3 % (0-2); EOSINOPHILS 1.5 % (0-7); HEMATOCRIT 31.6 % (36.0-48.0); HEMOGLOBIN 9.9 g/dL (12-16); IMMATURE GRANULOCYTES 4.3 % (0-5); LYMPHOCYTES 11.8 % (15-50); MCH 29.5 pg (26.0-34.0); MCHC 31.3 g/dL (31.0-37.0); MEAN PLATELET VOLUME 9.2 fL (7.4-10.4); MONOCYTES 8.9 % (2-11); NEUTROPHILS 73.2 % (40-80); PLATELET COUNT 491 10x3/uL (130-400); RBC 3.36 10x6/uL (4.00-5.40); RDW 14.6 % (11.5-14.5); WBC 14.2 10x3/uL (4.8-10.8)
[2017-11-06 13:57] LABS: CREATININE - SERUM 0.6 mg/dL (0.6-1.3)
== END | disposition home or self-care (01) ==
LOC: D.LABREF 13:33
PROVIDERS: Student in an Organized Health Care Education/Training Program
DX: K65.1 Peritoneal abscess (principal)

== ENCOUNTER 2017-11-09 18:32 | Emergency (ER) | payer MEDICARE, BC ==
[2017-11-02 11:25] VITALS: BMI 27.3
== END 2017-11-09 23:15 ==
LOC: D.ER 18:32
DX: J96.00 Acute respiratory failure, unspecified whether with hypoxia or hypercapnia (principal); J44.9 Chronic obstructive pulmonary disease, unspecified; I50.9 Heart failure, unspecified